=== PATIENT | male | born 1960 | race Caucasian/White ===

== ENCOUNTER 2017-03-24 12:47 | Emergency (ER) | payer BC, OTHER ==
[2017-03-24 13:20] LABS: BASOPHILS % (AUTO) 0.3 % (0.0-5.0); EOSINOPHILS % (AUTO) 0.5 % (0.0-8.0); HEMATOCRIT 49.4 % (42-54); LYMPHOCYTES % (AUTO) 5.9 % (21.0-51.0); MEAN CORPUSCULAR HEMOGLOBIN 30.3 pg (27.0-33.0); MEAN CORPUSCULAR HGB CONC 34.3 g/dL (32.0-36.0); MEAN CORPUSCULAR VOLUME 88.2 fL (79-99); MONOCYTES % (AUTO) 4.9 % (3.0-13.0); NEUTROPHILS % (AUTO) 88.4 % (40.0-77.0); PLATELET COUNT (AUTO) 109 K/uL (130-400); RED CELL DISTRIBUTION WIDTH 14.1 % (11.0-15.5); WHITE BLOOD COUNT (AUTO) 8.9 K/uL (4.8-10.8)
[2017-03-24] MEDS ORDERED: SODIUM CHLORIDE 0.9% 1000ML 1,000 ML IV ONE (13:26)
[2017-03-24] MEDS ORDERED: ONDANSETRON HCL 4 MG/2 ML VIAL ONE (13:26)
[2017-03-24 13:32] LABS: CREATININE 0.8 mg/dL (0.5-1.5)
[2017-03-24 13:48] LABS: ALBUMIN 3.6 g/dL (3.5-5.0); BILIRUBIN,TOTAL 1.1 mg/dL (0.2-1.0); CREATINE KINASE MB 0.5 ng/mL (0.5-3.6); TOTAL PROTEIN, SERUM 7.4 g/dL (6.0-8.3)
[2017-03-24 14:03] LABS: INR 1.09 (0.85-1.15); PARTIAL THROMBOPLASTIN TIME 25.8 SEC (26.3-35.5); PROTHROMBIN TIME 11.4 SEC (9.6-11.6)
[2017-03-24 15:18] LABS: APPEARANCE,URINE Turbid (CLEAR); BILIRUBIN,URINE Negative (NEGATIVE); COLOR,URINE Yellow (YELLOW); GLUCOSE, URINE (UA) >=1000 mg/dL (NEGATIVE); KETONES,URINE 40 mg/dL (NEGATIVE); LEUKOCYTE ESTERASE ,URINE Negative (NEGATIVE); NITRATE,URINE Negative (NEGATIVE); OCCULT BLOOD,URINE Negative (NEGATIVE); PROTEIN,URINE Negative (NEGATIVE); UROBILINOGEN,URINE 0.2 mg/dL (0.2-1.0)
[2017-03-24 15:45] LABS: BACTERIA,URINE None Seen /HPF (None Seen); RBC,URINE None Seen /HPF (0-1); TRANSITIONAL EPI CELLS,URINE Few /LPF (None Seen); WBC,URINE None Seen /HPF (0-1)
== END 2017-03-24 16:45 | disposition home or self-care (01) ==
LOC: EDH 12:47
DX: A09 Infectious gastroenteritis and colitis, unspecified (principal); E86.0 Dehydration; E11.65 Type 2 diabetes mellitus with hyperglycemia; Z72.0 Tobacco use
CPT/HCPCS: 36415; 80053; 81001; 82150; 82270; 82550; 82553; 82948 ×2; 83690; 84484; 85025; 85610; 85730; 87046; 87177; 87205; 87804 ×2; 93005; 96360; 96361; 96374; 99285; J2405; J7030

== ENCOUNTER 2018-11-01 11:31 | Emergency (ER) | payer SELFPAY ==
[2018-11-01] MEDS ORDERED: SODIUM CHLORIDE 0.9% 1000ML 1,000 ML IV ONE (11:47)
[2018-11-01 12:13] LABS: BASOPHILS % (AUTO) 0.5 % (0.0-5.0); EOSINOPHILS % (AUTO) 0.5 % (0.0-8.0); HEMATOCRIT 40.7 % (42-54); LYMPHOCYTES % (AUTO) 9.9 % (21.0-51.0); MEAN CORPUSCULAR HEMOGLOBIN 31.2 pg (27.0-33.0); MEAN CORPUSCULAR HGB CONC 35.3 g/dL (32.0-36.0); MEAN CORPUSCULAR VOLUME 88.4 fL (79-99); MONOCYTES % (AUTO) 9.5 % (3.0-13.0); NEUTROPHILS % (AUTO) 79.6 % (40.0-77.0); PLATELET COUNT (AUTO) 98 K/uL (130-400); RED BLOOD CELL COUNT(AUTO) 4.61 MIL/uL (4.50-6.20); RED CELL DISTRIBUTION WIDTH 12.9 % (11.0-15.5)
[2018-11-01] MEDS ORDERED: CLINDAMYCIN 600 MG/D5% WATER 50 ML IV ONE (12:14)
[2018-11-01] MEDS ORDERED: ONDANSETRON HCL 4 MG/2 ML VIAL ONE (12:14)
[2018-11-01] MEDS ORDERED: MORPHINE SULFATE 4 MG/1ML SYG ONE (12:15)
[2018-11-01 12:20] LABS: CREATININE 0.8 mg/dL (0.5-1.5); POTASSIUM 3.9 mmol/L (3.5-5.1)
[2018-11-01 12:25] LABS: ALBUMIN 2.9 g/dL (3.5-5.0); TOTAL PROTEIN, SERUM 6.8 g/dL (6.0-8.3)
[2018-11-01 12:35] LABS: INR 1.01 (0.85-1.15); PARTIAL THROMBOPLASTIN TIME 21.2 SEC (26.3-35.5); PROTHROMBIN TIME 10.6 SEC (9.6-11.6)
[2018-11-01] MEDS ORDERED: IOHEXOL-350 75 ML VIAL IV ONE (13:02)
[2018-11-01 13:06] LABS: PLATELET MORPHOLOGY COMMENT DECREASED
== END 2018-11-01 14:55 | disposition home or self-care (01) ==
LOC: EDH 11:31
DX: L03.315 Cellulitis of perineum (principal); R03.0 Elevated blood-pressure reading, without diagnosis of hypertension; E11.9 Type 2 diabetes mellitus without complications; Z91.14 Patient's other noncompliance with medication regimen; Z72.0 Tobacco use
CPT/HCPCS: 36415; 72193; 80053; 83605; 85025; 85610; 85730; 96365; 96375; 99285; J2270; J2405; J3490; J7030; Q9967

== ENCOUNTER 2018-11-11 16:27 | Inpatient (IN) | payer SELFPAY ==
[~2018-11-11] VITALS: Ht 172.7 cm; Wt 117.9 kg
[2018-11-11] MEDS ORDERED: SODIUM CHLORIDE 0.9% 1000ML 1,000 ML IV ONE ×2 (16:46→18:27)
[2018-11-11 16:53] LABS: BASOPHILS % (AUTO) 0.5 % (0.0-5.0); EOSINOPHILS % (AUTO) 0.7 % (0.0-8.0); HEMATOCRIT 47.2 % (42-54); LYMPHOCYTES % (AUTO) 16.4 % (21.0-51.0); MEAN CORPUSCULAR HEMOGLOBIN 30.1 pg (27.0-33.0); MEAN CORPUSCULAR HGB CONC 33.6 g/dL (32.0-36.0); MEAN CORPUSCULAR VOLUME 89.7 fL (79-99); MONOCYTES % (AUTO) 4.7 % (3.0-13.0); NEUTROPHILS % (AUTO) 77.7 % (40.0-77.0); NUCLEATED RED BLOOD CELLS 0.1 % (0.0-0.19); PLATELET COUNT (AUTO) 215 K/uL (130-400); RED BLOOD CELL COUNT(AUTO) 5.26 MIL/uL (4.50-6.20); RED CELL DISTRIBUTION WIDTH 13.3 % (11.0-15.5); WHITE BLOOD COUNT (AUTO) 12.6 K/uL (4.8-10.8)
[2018-11-11 17:18] LABS: CREATININE 0.9 mg/dL (0.5-1.5); POTASSIUM 4.4 mmol/L (3.5-5.1)
[2018-11-11 17:23] LABS: ALBUMIN 3.2 g/dL (3.5-5.0); BILIRUBIN,TOTAL 0.5 mg/dL (0.2-1.0); TOTAL PROTEIN, SERUM 8.1 g/dL (6.0-8.3)
[2018-11-11] MEDS ORDERED: IOHEXOL-350 75 ML VIAL IV ONE (17:48)
[2018-11-11] MEDS ORDERED: MORPHINE SULFATE 4 MG/1ML SYG ONE (18:18)
[2018-11-11] MEDS ORDERED: VANCOMYCIN 1GM+NS 250ML 250 ML IV ONE (18:18)
[2018-11-11] MEDS ORDERED: ONDANSETRON HCL 4 MG/2 ML VIAL ONE (18:18)
[2018-11-11] MEDS ORDERED: ONDANSETRON HCL 4 MG/2 ML VIAL IV PRN (19:30)
[2018-11-11] MEDS ORDERED: DEXTROSE 50%-WATER 50 ML DISP.SYRIN IV PRN (19:30)
[2018-11-11] MEDS ORDERED: GLUCAGON 1MG KIT 1 MG ML IM PRN (19:30)
[2018-11-11] MEDS ORDERED: HYDRALAZINE HCL 20 MG/ML VIAL IV PRN (19:30)
[2018-11-11] MEDS: FAMOTIDINE/PF 20 MG/2 ML VIAL IV SCH (21:19)
[2018-11-11] MEDS: MORPHINE SULFATE 4 MG/1ML SYG IV PRN (21:19)
[2018-11-11] MEDS: SODIUM CHLORIDE 0.9% 1000ML 1,000 ML IV SCH (21:31)
[2018-11-11] MEDS: INSULIN R PO SS1 SQ SCH (21:33)
[2018-11-12] VITALS: BP 110/61
[2018-11-12] MEDS: MORPHINE SULFATE 4 MG/1ML SYG IV PRN ×4 (01:47→23:27)
[2018-11-12 05:23] LABS: BASOPHILS % (AUTO) 0.5 % (0.0-5.0); EOSINOPHILS % (AUTO) 1.4 % (0.0-8.0); HEMATOCRIT 39.7 % (42-54); LYMPHOCYTES % (AUTO) 25.5 % (21.0-51.0); MEAN CORPUSCULAR HEMOGLOBIN 30.5 pg (27.0-33.0); MEAN CORPUSCULAR HGB CONC 34.2 g/dL (32.0-36.0); MONOCYTES % (AUTO) 6.6 % (3.0-13.0); PLATELET COUNT (AUTO) 161 K/uL (130-400); RED BLOOD CELL COUNT(AUTO) 4.47 MIL/uL (4.50-6.20); RED CELL DISTRIBUTION WIDTH 13.4 % (11.0-15.5); WHITE BLOOD COUNT (AUTO) 8.1 K/uL (4.8-10.8)
[2018-11-12 05:35] LABS: CREATININE 0.7 mg/dL (0.5-1.5); POTASSIUM 3.7 mmol/L (3.5-5.1)
[2018-11-12 06:00] VITALS: BP 138/93
[2018-11-12] MEDS: INSULIN R PO SS1 SQ SCH ×4 (06:16→21:10)
[2018-11-12] MEDS: SODIUM CHLORIDE 0.9% 1000ML 1,000 ML IV SCH ×2 (06:17→15:30)
[2018-11-12 08:00] VITALS: BP 112/73
[2018-11-12] MEDS: FAMOTIDINE/PF 20 MG/2 ML VIAL IV SCH ×2 (08:36→21:06)
[2018-11-12 11:00] VITALS: BP 128/68
--- NOTE | 2018-11-12 11:17 | NUR ---
DCP CM met with pt discussed dc plans. Pt is independent prior to admission, lives at home with partner Alo Nice. Denies any equipments/services. Pt feels safe to go back home, still works and drives, partner able to assist with transportation as necessary. DC plan to home once stable. CM to cont to follow up. Addendum: 11/12/18 at 1119 by GENEVA AYALA LVN CM Amended: Links added.
[2018-11-12] MEDS ORDERED: VANCOMYCIN PROTOCOL PER PHARMACY IV PRN (14:00)
[2018-11-12] MEDS ORDERED: VANCOMYCIN 1GM+NS 250ML 250 ML IV SCH (14:00)
[2018-11-12] MEDS ORDERED: VANCOMYCIN 2 GM in SODIUM CHLORIDE 0.9% 500ML 500 ML IV ONE (14:15)
[2018-11-12] MEDS ORDERED: COMPOUND IV REFRIGERATED 1 EACH IVSOLN MISC PRN (14:15)
[2018-11-12] MEDS: ACETAMINOPHEN 325 MG TAB PO PRN (15:02)
--- NOTE | 2018-11-12 15:39 | NUR ---
CM Note: POC CM met with pt currently self pay, HAC assisting, given community resources packet. Pt states his partner will help with wound dressing changes. Dc plan to home. Primary nurse aware to teach pt and partner dressing changes. Pt to be given temporary supplies on dc. Primary nurse and charge nurse aware. CM to cont to follow up.
[2018-11-12 16:00] VITALS: BP 124/85
--- NOTE | 2018-11-12 17:34 | NUR ---
[facility] consult Patient assessed as ordered. Patient states he had abscess that spontaneously ruptured and is now open. Surgical consult is pending. [facility] recommendations submitted. Addendum: 11/12/18 at 1736 by MIKE OSUNA RN/ Amended: Links added.
[2018-11-12] MEDS: INSULIN LISPRO 100 UNIT/ML 3ML SQ SCH (17:57)
[2018-11-12] MEDS: ZOSYN 3.375GM+NS 50ML 50 ML IV SCH (18:05)
[2018-11-12] MEDS: MORPHINE SULFATE 2 MG/ML 1ML SYG IV PRN (18:23)
[2018-11-12 20:00] VITALS: BP 120/69
[2018-11-12] MEDS ORDERED: INSULIN GLARGINE 100 UNITS/ML 10 ML VIAL SQ SCH (21:00)
[2018-11-12] MEDS: VANCOMYCIN 1GM+NS 250ML 250 ML IV SCH (21:06)
[2018-11-12] MEDS: ONDANSETRON HCL 4 MG/2 ML VIAL IVP PRN (23:27)
[2018-11-13] VITALS (10 sets, daily range): BP systolic 108–138; BP diastolic 57–84
--- NOTE | 2018-11-13 00:13 | NUR ---
REFUSING WOUND CARE AT THIS TIME WANTING TO HAVE WOUND CARE DONE IN AM WHEN FRIEND IS PRESENT TO OBSERVE HOW TO DO THE WOUND CARE. INFORMED PT THAT WOUND CARE CAN BE DONE NOW AND LATER WHEN HIS FRIEND ARRIVES IN THE AM. PT STILL DOES NOT WANT IT DONE AT THIS TIME. WILL ENDORSE TO AM NURSE.
[2018-11-13] MEDS: ZOSYN 3.375GM+NS 50ML 50 ML IV SCH ×3 (03:09→17:32)
[2018-11-13] MEDS: ACETAMINOPHEN 325 MG TAB PO PRN ×2 (03:18→11:00)
[2018-11-13] MEDS: SODIUM CHLORIDE 0.9% 1000ML 1,000 ML IV SCH ×3 (04:51→21:30)
[2018-11-13] MEDS: MORPHINE SULFATE 4 MG/1ML SYG IV PRN ×2 (04:52→17:33)
[2018-11-13 05:13] LABS: BASOPHILS % (AUTO) 0.6 % (0.0-5.0); EOSINOPHILS % (AUTO) 0.9 % (0.0-8.0); HEMATOCRIT 40.5 % (42-54); LYMPHOCYTES % (AUTO) 17.6 % (21.0-51.0); MEAN CORPUSCULAR HEMOGLOBIN 30.6 pg (27.0-33.0); MEAN CORPUSCULAR HGB CONC 34.2 g/dL (32.0-36.0); MEAN CORPUSCULAR VOLUME 89.6 fL (79-99); MONOCYTES % (AUTO) 4.8 % (3.0-13.0); NEUTROPHILS % (AUTO) 76.1 % (40.0-77.0); NUCLEATED RED BLOOD CELLS 0.1 % (0.0-0.19); PLATELET COUNT (AUTO) 146 K/uL (130-400); RED BLOOD CELL COUNT(AUTO) 4.52 MIL/uL (4.50-6.20); RED CELL DISTRIBUTION WIDTH 13.4 % (11.0-15.5); WHITE BLOOD COUNT (AUTO) 9.1 K/uL (4.8-10.8)
[2018-11-13 05:28] LABS: HEMOGLOBIN A1C 11.3 % (4.0-6.0)
[2018-11-13 05:35] LABS: CRP QUANTITATIVE 5.6 mg/L (0.00-9.0)
[2018-11-13 06:19] LABS: ERYTHROCYTE SEDIMENTATION RATE 6 MM/HR (0-20)
[2018-11-13] MEDS: VANCOMYCIN 1GM+NS 250ML 250 ML IV SCH ×2 (06:40→14:44)
[2018-11-13] MEDS: INSULIN R PO SS1 SQ SCH ×2 (06:44→13:44)
[2018-11-13] MEDS: INSULIN LISPRO 100 UNIT/ML 3ML SQ SCH ×2 (06:46→13:43)
[2018-11-13] MEDS: FAMOTIDINE/PF 20 MG/2 ML VIAL IV SCH ×2 (10:58→21:01)
[2018-11-13] MEDS: ONDANSETRON HCL 4 MG/2 ML VIAL IVP PRN ×2 (10:59→17:45)
[2018-11-13] MEDS: MORPHINE SULFATE 2 MG/ML 1ML SYG IV PRN ×2 (11:01→11:12)
[2018-11-13] MEDS ORDERED: DEXTROSE 50%-WATER 50 ML DISP.SYRIN IV PRN (15:30)
[2018-11-13] MEDS ORDERED: GLUCAGON 1MG KIT 1 MG ML IM PRN (15:30)
[2018-11-13] MEDS ORDERED: LIDOCAINE HCL 5% OINT 36GM TUBE TP PRN (15:30)
[2018-11-13] MEDS: INSULIN HUMULIN R 100 UNIT/ML 3ML SQ SCH ×2 (17:52→21:05)
[2018-11-13] MEDS ORDERED: INSULIN GLARGINE 100 UNITS/ML 10 ML VIAL SQ SCH (21:00)
[2018-11-13] MEDS: SODIUM HYPOCHLORITE 0.25% [HALF STRENGTH] 473 ML TOPICAL SOLN TP SCH (21:00)
[2018-11-13] MEDS: VANCOMYCIN 1.75 GM in SODIUM CHLORIDE 0.9% 250 ML IV SCH (21:02)
[2018-11-13] MEDS: INSULIN HUMULIN 70/30 100 UNIT/ML 3ML SQ SCH (21:07)
[2018-11-13] MEDS: HYDROMORPHONE HCL 0.5 MG/0.5 ML ML IVP PRN (21:51)
[2018-11-14] VITALS: BP 122/63
[2018-11-14] MEDS: ZOSYN 3.375GM+NS 50ML 50 ML IV SCH ×3 (02:15→17:44)
[2018-11-14] MEDS: HYDROMORPHONE HCL 0.5 MG/0.5 ML ML IVP PRN ×4 (02:16→22:43)
[2018-11-14 04:00] VITALS: BP 144/85
[2018-11-14] MEDS: MORPHINE SULFATE 4 MG/1ML SYG IV PRN (05:47)
[2018-11-14] MEDS: ONDANSETRON HCL 4 MG/2 ML VIAL IVP PRN (05:47)
[2018-11-14] MEDS: INSULIN HUMULIN R 100 UNIT/ML 3ML SQ SCH ×4 (05:49→20:52)
[2018-11-14 08:00] VITALS: BP 144/85
--- NOTE | 2018-11-14 08:17 | NUR ---
WOUND CARE PROVIDED DANKINS SOLUTION APPLIED TO WOUND SITE ON GROIN WITH LIDOCAINE GEL. DAMP TO DRY DRESSING PACKED IN WOUND. DRY GAUZE AND ABD PAD APPLIED OVER WOUND FOR EXTRA COVERAGE, HELD IN PLACE WITH PT'S BOXERS. MEDICATION PRIOR TO WOUND CARE WAS GIVEN- REFER TO MAR. PT TOLERATED CARE WELL. NO S/S OF DISTRESS.
[2018-11-14] MEDS ORDERED: INSULIN HUMULIN 70/30 100 UNIT/ML 3ML SQ SCH (09:00)
[2018-11-14] MEDS: FAMOTIDINE/PF 20 MG/2 ML VIAL IV SCH ×2 (10:29→20:49)
[2018-11-14] MEDS: SODIUM CHLORIDE 0.9% 1000ML 1,000 ML IV SCH (10:39)
[2018-11-14] MEDS: VANCOMYCIN 1.75 GM in SODIUM CHLORIDE 0.9% 250 ML IV SCH ×2 (10:42→20:49)
[2018-11-14] MEDS: SODIUM HYPOCHLORITE 0.25% [HALF STRENGTH] 473 ML TOPICAL SOLN TP SCH (10:42)
[2018-11-14] MEDS: ACETAMINOPHEN 325 MG TAB PO PRN (11:15)
[2018-11-14 12:00] VITALS: BP 139/87
[2018-11-14] MEDS ORDERED: GLIPIZIDE 5 MG TABLET PO SCH (14:45)
[2018-11-14 16:00] VITALS: BP 143/89
[2018-11-14] MEDS: METFORMIN HCL 500 MG TABLET PO SCH (16:53)
[2018-11-14 20:00] VITALS: BP 135/85
[2018-11-14] MEDS: INSULIN HUMULIN 70/30 100 UNIT/ML 3ML SQ SCH (20:51)
[2018-11-15] VITALS: BP 119/79
[2018-11-15] MEDS: ZOSYN 3.375GM+NS 50ML 50 ML IV SCH ×2 (01:45→09:32)
[2018-11-15 04:00] VITALS: BP 148/61
[2018-11-15 04:32] LABS: BASOPHILS % (AUTO) 0.6 % (0.0-5.0); EOSINOPHILS % (AUTO) 1.7 % (0.0-8.0); HEMATOCRIT 44.1 % (42-54); LYMPHOCYTES % (AUTO) 24.8 % (21.0-51.0); MEAN CORPUSCULAR HEMOGLOBIN 30.6 pg (27.0-33.0); MEAN CORPUSCULAR HGB CONC 33.9 g/dL (32.0-36.0); MEAN CORPUSCULAR VOLUME 90.2 fL (79-99); MONOCYTES % (AUTO) 6.5 % (3.0-13.0); NEUTROPHILS % (AUTO) 66.4 % (40.0-77.0); NUCLEATED RED BLOOD CELLS 0.1 % (0.0-0.19); PLATELET COUNT (AUTO) 163 K/uL (130-400); RED BLOOD CELL COUNT(AUTO) 4.88 MIL/uL (4.50-6.20); RED CELL DISTRIBUTION WIDTH 13.3 % (11.0-15.5); WHITE BLOOD COUNT (AUTO) 8.5 K/uL (4.8-10.8)
[2018-11-15 04:52] LABS: BILIRUBIN,TOTAL 0.6 mg/dL (0.2-1.0); CREATININE 0.8 mg/dL (0.5-1.5); POTASSIUM 3.6 mmol/L (3.5-5.1); TOTAL PROTEIN, SERUM 7.1 g/dL (6.0-8.3)
[2018-11-15] MEDS: HYDROMORPHONE HCL 0.5 MG/0.5 ML ML IVP PRN ×3 (07:24→16:53)
[2018-11-15] MEDS: INSULIN HUMULIN R 100 UNIT/ML 3ML SQ SCH ×3 (07:30→16:30)
[2018-11-15 08:00] VITALS: BP 140/68
[2018-11-15] MEDS: METFORMIN HCL 500 MG TABLET PO SCH (08:57)
[2018-11-15] MEDS ORDERED: INSULIN HUMULIN 70/30 100 UNIT/ML 3ML SQ SCH (09:00)
[2018-11-15] MEDS: FAMOTIDINE/PF 20 MG/2 ML VIAL IV SCH (09:32)
[2018-11-15] MEDS: MORPHINE SULFATE 4 MG/1ML SYG IV PRN (09:32)
[2018-11-15] MEDS: SODIUM HYPOCHLORITE 0.25% [HALF STRENGTH] 473 ML TOPICAL SOLN TP SCH (09:33)
[2018-11-15] MEDS: VANCOMYCIN 1.75 GM in SODIUM CHLORIDE 0.9% 250 ML IV SCH (09:44)
[2018-11-15 12:00] VITALS: BP 140/73
--- NOTE | 2018-11-15 13:04 | NUR ---
WOUND CARE WOUND CARE TEACHING PROVIDED TO PATIENT'S FRIEND, CARLOS. WOUND CARE DONE USING STERILE TECHNIQUE. LIDOCAINE OITMENT APPLIED TO SURROUNDING AREA PAIN PRE MEDICATION. DANKINS SOLUTION APPLIED TO WOUND. DAMP TO DRY DRESSING APPLIED. DRY GAUZE AND ABD PAD APPLIED. PATIENT TOLERATED WELL. PATIENT TOLERATED WELL. CARLOS VERBALIZED UNDERSTANDING OF ALL WOUND CARE EDUCATION GIVEN VIA TEACH BACK. NO CONCERNS VOICED. CARLOS IS AN RN AT [facility].
[2018-11-15] MEDS: SODIUM CHLORIDE 0.9% 1000ML 1,000 ML IV SCH (13:30)
[2018-11-15] MEDS ORDERED: GLIP5POW MC (14:50)
[2018-11-15] MEDS ORDERED: HUM10VIA SQ ×2 (14:50)
[2018-11-15] MEDS ORDERED: METF-444 PO (14:50)
[2018-11-15] MEDS ORDERED: IBUP-2077 PO (15:38)
[2018-11-15] MEDS ORDERED: ACET1TAB12 PO (15:38)
--- NOTE | 2018-11-15 15:58 | NUR ---
RD NOTIFICATION PRIMARY DIAGNOSIS: SEPSIS DUE TO CELLULITIS AND PERINEAL ABSCESS. HX: DM, NON-COMPLIANT DM. BMI 39.5; CLASSIFIED MORBID OBESE. CURRENT DIET: 60GM CCD. PO 100% WITH GOOD APPETITE PER PT. MEDS: GLUCOPHAGE, DILAUDID, PEPCID, PIPERCILLIN, HUMULIN, GLUCOTROL, ZOFRAN. LABS: LDL 116, HDL 134, A1C 11.3, EAG 278, ALB 3.2. SKIN: NON-PITTING EDEMA, ABSCESS IN SCROTUM REGION. RD WAS CONSULTED FOR DM NUTRITION THERAPY EDUCATION. RD RECOMMENDS TO CONTINUE CURRENT DIET. ADD HEART HEALTHY TO DIET ORDER. RD RECOMMENDS 500MG VITMAIN C BID AND 220MG ZINC FOR 14 DAYS TO AID IN WOUND HEALING. RD PROVIDED DIABETES AND HEART HEALTHY NUTRITION AND DIET EDUCATION. HANDOUTS WERE REVIEWED AND GIVEN TO PT TO TAKE HOME. PT WAS READY TO LEARN AND STATED HE WAS READY TO MAKE LIFESTYLE CHANGES. PT ASKED QUESTIONS, RD ANSWERED. PT VERBALIZED UNDERSTANDING AND WAS GLAD I WENT BY TO PROVIDE HIM THIS INFORMATION. RD WILL CONTINUE TO MONITOR AND WILL FOLLOW UP NEEDED. PLEASE NOTIFY RD IF ANY OTHER NUTRITIONAL CONCERNS ARISE. THANK YOU. Addendum: 11/15/18 at [address] Amended: Links added.
--- NOTE | 2018-11-15 15:59 | NUR ---
DIET EDUCATION RD PROVIDED DIABETES AND HEART HEALTHY NUTRITION AND DIET EDUCATION. HANDOUTS WERE REVIEWED AND GIVEN TO PT TO TAKE HOME. PT WAS READY TO LEARN AND STATED HE WAS READY TO MAKE LIFESTYLE CHANGES. PT ASKED QUESTIONS, RD ANSWERED. PT VERBALIZED UNDERSTANDING AND WAS GLAD I WENT BY TO PROVIDE HIM THIS INFORMATION. RD WILL CONTINUE TO MONITOR AND WILL FOLLOW UP NEEDED. PLEASE NOTIFY RD IF ANY OTHER NUTRITIONAL CONCERNS ARISE. THANK YOU. Addendum: 11/15/18 at [address] Amended: Links added.
--- NOTE | 2018-11-15 18:30 | NUR ---
PATIENT PROVIDED WITH EXTENSIVE TEACHING ON INSULIN ADMINISTRATION, CLEAN TECHNIQUE, S/S OF HYPOGLYCEMIA AND HYPERGLYCEMIA. PATIENT VERBALIZED UNDERSTANDING OF ALL EDUCATION PROVIDED VIA TEACH BACK. ALL QUESTIONS ANSWERED ACCORDINGLY. PATIENT PRACTICED HOW TO GIVE INSULIN AND HOW TO MEASURE IT.
== END 2018-11-15 20:50 | disposition home or self-care (01) | DRG 872 ==
LOC: EDH 16:27 → EDHIP 16:28 → 3AH 20:06
PROVIDERS: ADMIT Internal Medicine; ATTEND Internal Medicine
DX: A41.9 Sepsis, unspecified organism (principal); L03.315 Cellulitis of perineum; E87.1 Hypo-osmolality and hyponatremia; L02.215 Cutaneous abscess of perineum; N49.2 Inflammatory disorders of scrotum; E11.9 Type 2 diabetes mellitus without complications; E66.9 Obesity, unspecified; Z68.39 Body mass index [BMI] 39.0-39.9, adult; Z91.19 Patient's noncompliance with other medical treatment and regimen; Z79.84 Long term (current) use of oral hypoglycemic drugs
CPT/HCPCS: 36415; 72193; 80048; 80053; 80061; 80202; 82948; 83036; 83605; 85025; 85651; 86140; 87070; 87076; 87077; 87186; G0378; J1170; J1815; J2270; J2405; J2543; J3370; J3490; J7030; J7040; Q9967

== ENCOUNTER 2019-01-17 12:34 | Inpatient (IN) | payer SELFPAY ==
[~2019-01-17] VITALS: Ht 172.7 cm; Wt 118.0 kg
[~2019-01-17 12:34] MED LIST: ACET1TAB12 PO; GLIP5POW MC; HUM10VIA SQ; IBUP-2077 PO; METF-444 PO
[2019-01-17] MEDS ORDERED: ACETAMINOPHEN EXTRA STRENGTH 500 MG TABLET ONE (12:49)
[2019-01-17] MEDS ORDERED: APIXABAN 2.5 MG TABLET PO ONE (13:37)
[2019-01-17 13:42] LABS: BASOPHILS % (AUTO) 0.5 % (0.0-5.0); EOSINOPHILS % (AUTO) 1.2 % (0.0-8.0); HEMATOCRIT 41.1 % (42-54); LYMPHOCYTES % (AUTO) 18.6 % (21.0-51.0); MEAN CORPUSCULAR HEMOGLOBIN 30.3 pg (27.0-33.0); MEAN CORPUSCULAR HGB CONC 34.5 g/dL (32.0-36.0); MEAN CORPUSCULAR VOLUME 87.6 fL (79-99); MONOCYTES % (AUTO) 6.3 % (3.0-13.0); NEUTROPHILS % (AUTO) 73.4 % (40.0-77.0); NUCLEATED RED BLOOD CELLS 0.1 % (0.0-0.19); PLATELET COUNT (AUTO) 126 K/uL (130-400); RED BLOOD CELL COUNT(AUTO) 4.69 MIL/uL (4.50-6.20); RED CELL DISTRIBUTION WIDTH 14.4 % (11.0-15.5); WHITE BLOOD COUNT (AUTO) 8.6 K/uL (4.8-10.8)
[2019-01-17 13:48] LABS: CREATININE 0.7 mg/dL (0.5-1.5); POTASSIUM 4.3 mmol/L (3.5-5.1)
[2019-01-17 13:51] LABS: PARTIAL THROMBOPLASTIN TIME 24.9 SEC (26.3-35.5); PROTHROMBIN TIME 10.5 SEC (9.6-11.6)
[2019-01-17] MEDS ORDERED: ONDANSETRON HCL 4 MG/2 ML VIAL IV PRN (15:00)
[2019-01-17] MEDS ORDERED: ACETAMINOPHEN 325 MG TAB PO PRN ×2 (15:00)
[2019-01-17] MEDS ORDERED: ACETAMINOPHEN-CODEINE 300/30MG TAB PO PRN (15:00)
[2019-01-17] MEDS ORDERED: LACTULOSE 20 GM/30 ML UDCUP PO PRN (15:00)
[2019-01-17 16:45] VITALS: BP 139/91
--- NOTE | 2019-01-17 17:10 | NUR ---
STRICT BEDREST EXPLAINED TO PATIENT THE RISK FACTORS RELATED TO DVT ON LOWER EXTREMITY AND MADE PATIENT AWARE THAT HE NEED NEEDS TO BE STRICTLY BEDREST. PATIENT INSISTING THAT HE WILL NOT USE URINAL OR BEDPAN. PATIENT VERBALIZED UNDERSTANDING RISK FACTORS FOR DVT.
[2019-01-17] MEDS: INSULIN HUMULIN R 100 UNIT/ML 3ML SQ SCH ×2 (17:37→21:27)
[2019-01-17] MEDS ORDERED: WARFARIN SODIUM 7.5 MG TAB PO SCH (20:00)
[2019-01-17 20:27] VITALS: BP 135/83
[2019-01-17] MEDS: PHARMACY COMMUNICATION MISC SCH (20:30)
[2019-01-17] MEDS ORDERED: ENOXAPARIN SODIUM 120 MG/0.8ML SQ SCH (21:00)
[2019-01-17] MEDS: FAMOTIDINE 20MG TAB 20 MG TAB PO SCH (21:15)
[2019-01-18 00:28] VITALS: BP 140/88
[2019-01-18] MEDS: PHARMACY COMMUNICATION MISC SCH ×2 (00:30→04:45)
[2019-01-18 04:28] VITALS: BP 111/78
[2019-01-18 05:37] LABS: BASOPHILS % (AUTO) 0.8 % (0.0-5.0); EOSINOPHILS % (AUTO) 1.8 % (0.0-8.0); HEMATOCRIT 40.9 % (42-54); LYMPHOCYTES % (AUTO) 24.4 % (21.0-51.0); MEAN CORPUSCULAR HEMOGLOBIN 29.4 pg (27.0-33.0); MEAN CORPUSCULAR HGB CONC 34.1 g/dL (32.0-36.0); MEAN CORPUSCULAR VOLUME 86.3 fL (79-99); MONOCYTES % (AUTO) 7.6 % (3.0-13.0); NEUTROPHILS % (AUTO) 65.4 % (40.0-77.0); NUCLEATED RED BLOOD CELLS 0.1 % (0.0-0.19); PLATELET COUNT (AUTO) 126 K/uL (130-400); RED BLOOD CELL COUNT(AUTO) 4.73 MIL/uL (4.50-6.20); RED CELL DISTRIBUTION WIDTH 15.1 % (11.0-15.5); WHITE BLOOD COUNT (AUTO) 8.8 K/uL (4.8-10.8)
[2019-01-18 05:48] LABS: CREATININE 0.6 mg/dL (0.5-1.5); POTASSIUM 3.7 mmol/L (3.5-5.1)
[2019-01-18 05:53] LABS: INR 1.07 (0.85-1.15); PARTIAL THROMBOPLASTIN TIME 27.2 SEC (26.3-35.5); PROTHROMBIN TIME 11.2 SEC (9.6-11.6)
[2019-01-18] MEDS: ACETAMINOPHEN-CODEINE 300/30MG TAB PO PRN ×4 (06:04→21:12)
[2019-01-18] MEDS: INSULIN HUMULIN R 100 UNIT/ML 3ML SQ SCH ×4 (06:30→21:49)
[2019-01-18 08:00] VITALS: BP 116/80
[2019-01-18] MEDS ORDERED: ACETAMINOPHEN-CODEINE 300/30MG TAB PO PRN (09:15)
[2019-01-18] MEDS: FAMOTIDINE 20MG TAB 20 MG TAB PO SCH ×2 (10:19→21:13)
[2019-01-18] MEDS: ENOXAPARIN SODIUM 120 MG/0.8ML SQ SCH ×2 (10:37→21:13)
[2019-01-18 12:00] VITALS: BP 124/93
[2019-01-18 16:00] VITALS: BP 128/86
[2019-01-18] MEDS: WARFARIN SODIUM 5 MG TAB PO SCH (16:38)
[2019-01-18 19:00] VITALS: BP 130/83
--- NOTE | 2019-01-18 19:41 | NUR ---
cm note met with patient and states resides athome with life partner, pt independent with adls and ambulation. no dme. 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 no md, provided list of low income clinics in the area, and rx assist programs, pt now states is afraid of coumadin and prefers eliquis, [facility] will discuss with md in the am. dc plan is back to home at [place]. instructed on the importance of adherance to medication ordered to avoid medical complications. pt verbalizes understanding. Addendum: 01/18/19 at 1944 by COLIN GOSS CM Amended: Links added.
[2019-01-19] VITALS: BP 116/80
[2019-01-19] MEDS: ACETAMINOPHEN-CODEINE 300/30MG TAB PO PRN ×4 (03:15→20:57)
[2019-01-19 04:00] VITALS: BP 129/88
[2019-01-19 05:49] LABS: BASOPHILS % (AUTO) 0.6 % (0.0-5.0); EOSINOPHILS % (AUTO) 1.9 % (0.0-8.0); HEMATOCRIT 37.9 % (42-54); LYMPHOCYTES % (AUTO) 25.6 % (21.0-51.0); MEAN CORPUSCULAR VOLUME 85.6 fL (79-99); MONOCYTES % (AUTO) 8.9 % (3.0-13.0); PLATELET COUNT (AUTO) 133 K/uL (130-400); RED BLOOD CELL COUNT(AUTO) 4.43 MIL/uL (4.50-6.20); RED CELL DISTRIBUTION WIDTH 14.5 % (11.0-15.5); WHITE BLOOD COUNT (AUTO) 8.2 K/uL (4.8-10.8)
[2019-01-19 05:53] LABS: INR 1.08 (0.85-1.15); PARTIAL THROMBOPLASTIN TIME 30.7 SEC (26.3-35.5); PROTHROMBIN TIME 11.3 SEC (9.6-11.6)
[2019-01-19 06:00] LABS: CREATININE 0.7 mg/dL (0.5-1.5); POTASSIUM 3.9 mmol/L (3.5-5.1)
[2019-01-19] MEDS: INSULIN HUMULIN R 100 UNIT/ML 3ML SQ SCH ×4 (06:48→20:27)
[2019-01-19 08:00] VITALS: BP 117/76
[2019-01-19] MEDS ORDERED: WARFARIN SODIUM 10 MG TABLET PO SCH (09:00)
[2019-01-19] MEDS: FAMOTIDINE 20MG TAB 20 MG TAB PO SCH ×2 (09:10→20:19)
[2019-01-19] MEDS: ENOXAPARIN SODIUM 120 MG/0.8ML SQ SCH ×2 (09:11→20:20)
[2019-01-19 12:00] VITALS: BP 121/77
--- NOTE | 2019-01-19 15:29 | NUR ---
ORTIZ COUPON/PAPERWORK EXPLAINED THE ELIQUIS PROGRAM TO PT AND PARTNER- NINA GIVEN, PAPERWORK FOR ASISTANCE PROGRAM GIVEN, HAVE RX FOR DR. SHUKLA TO SIGN AND HAVE INFORMED AJ; IF NOT, PT CAN TAKE A BLANK FORM TO THE md OF HIS CHOICE ON DISCHARGE Addendum: 01/19/19 at 1531 by EVELYN SANTIAGO RN CM Amended: Links added.
[2019-01-19] MEDS: WARFARIN SODIUM 5 MG TAB PO SCH (15:38)
[2019-01-19 16:00] VITALS: BP 113/92
[2019-01-19 19:00] VITALS: BP 134/90
--- NOTE | 2019-01-19 20:19 | NUR ---
MEDS SHIFT ASSESSMENT DONE, PLEASE REFER TO CHART. PT VERBALIZES PAINS TO LLE. OFFERED TYLENOL FOR NOW BUT REFUSED. PT VERBALIZES THAT TYLENOL #3 WAS SUPPOSE TO BE Q4H. EXPLAINED THAT MD WILL BE CALLED TO CLARIFY ORDERS. PT GOT UPSET AND ACCUSED PRECIPITATOR SUPERVISOR OF NOT KNOWING ABOUT HIS MEDICATIONS. EXPLAINED THAT PER ORDER IN THE COMPUTER HIS MED IS EVERY 6H BUT WILL CLARIFY WITH MD. TRIED TO CALM PT DOWN BUT IS STILL BEING RUDE TO PRECIPITATOR SUPERVISOR. DUE MEDS ADMINISTERED, TOLERATED WELL. PAGED HOSPITALIST LAUNDRY ATTENDANT VIA ANSWERING SERVICE TO CLARIFY ORDERS, AWAITING CALL BACK. Addendum: 01/20/19 at 0223 by ORTEGA SANCHEZ RN RN Amended: Links added.
--- NOTE | 2019-01-19 20:47 | NUR ---
CALL NO CALL BACK FROM HOSPITALIST, CALLED ANSWERING SERVICE AGAIN TO PAGE. TRIED TO CALL ER AND CUSTOMER ACCOUNT MANAGER SUPERVISOR EVAPORATOR FOR HOSPITALIST, ALINA IS BUSY WITH PATIENTS. ASK LIZANDRO IN ER TO LET CUSTOMER ACCOUNT MANAGER KNOW TO CALL BACK MD PHYSICIAN DERMATOLOGIST.
--- NOTE | 2019-01-19 20:57 | NUR ---
MEDS NO CALL BACK YET FROM MACHINE GUIDE BASE WINDER. MEDICATED PT WITH TYLENOL #3 2 TABS FOR PAINS. WILL REFER MED FREQUENCY TO MACHINE GUIDE BASE WINDER ONCE SHE CALLS BACK.
--- NOTE | 2019-01-19 23:30 | NUR ---
CALL TRAFFIC CONTROL SPECIALIST ALINA, CALLED VIA HER CP NO CALL BACK RECEIVED. REFERRED PT'S TYLENOL # 3 DOSES. NO CHANGES MADE FREQUENCY IS KEPT IS, 1 TAB Q4H AND 2 TABS Q6H PRN FOR PAINS. WILL LET PT KNOW.
[2019-01-20] VITALS (7 sets, daily range): BP systolic 106–145; BP diastolic 60–93
--- NOTE | 2019-01-20 02:00 | NUR ---
ROUNDS PT RESTING WELL, NO DISTRESS NOTED. KEPT UNDISTURBED FOR NOW. CALL LIGHT WITHIN REACH. WILL MONITOR PT.
[2019-01-20] MEDS: ACETAMINOPHEN-CODEINE 300/30MG TAB PO PRN ×3 (03:24→20:21)
[2019-01-20 06:31] LABS: INR 1.22 (0.85-1.15); PARTIAL THROMBOPLASTIN TIME 31.7 SEC (26.3-35.5); PROTHROMBIN TIME 12.7 SEC (9.6-11.6)
[2019-01-20] MEDS: INSULIN HUMULIN R 100 UNIT/ML 3ML SQ SCH ×4 (06:37→21:00)
[2019-01-20] MEDS: FAMOTIDINE 20MG TAB 20 MG TAB PO SCH ×2 (10:43→20:19)
[2019-01-20] MEDS: ENOXAPARIN SODIUM 120 MG/0.8ML SQ SCH (10:44)
[2019-01-20] MEDS ORDERED: IOHEXOL 350 MG/ML 100ML INFUS..BTL IV ONE (11:46)
--- NOTE | 2019-01-20 14:35 | NUR ---
Received call from radiology department that pt is positive for DVT, Dr Jain was informed and he said to continue with same regimen as explained earlier
--- NOTE | 2019-01-20 16:00 | NUR ---
Kailey MAYESP aware of PE positive and of Dr Susy weems
--- NOTE | 2019-01-20 16:21 | NUR ---
RD Notification Pt admitted for LLE DVT. Hx of DM, Scrotal cellulitis. Pt denies need for Coumadin diet education secondary to discontinued medication. Pt denies need for DM education secondary to Hx of DM with previous education. Upon visit, Pt expresses concern for affordability of Insulin medication and seeking assistance/program. Pt tolerating Current 75gm CCD. Pt states he is tired of eating hospital food. Recommend to continue current diet order. Pt LBM 01/19. Pt monitored labs: BG 291, Na 134, Cl 99, Ca 8.4. RD to continue to monitor. Please notify RD as additional nutrition concerns arise. Addendum: 01/20/19 at [address] Amended: Links added.
[2019-01-20] MEDS ORDERED: PHARMACY COMMUNICATION MISC SCH (17:00)
[2019-01-20] MEDS ORDERED: APIXABAN 5 MG TABLET PO ONE (18:10)
[2019-01-21] MEDS: ACETAMINOPHEN-CODEINE 300/30MG TAB PO PRN ×4 (03:38→22:48)
[2019-01-21 03:47] VITALS: BP 122/83
[2019-01-21 08:00] VITALS: BP 129/70
[2019-01-21] MEDS: FAMOTIDINE 20MG TAB 20 MG TAB PO SCH ×2 (09:25→20:52)
[2019-01-21] MEDS: APIXABAN 5 MG TABLET PO SCH ×2 (09:26→20:52)
[2019-01-21] MEDS: INSULIN HUMULIN R 100 UNIT/ML 3ML SQ SCH ×4 (09:27→20:58)
[2019-01-21] MEDS ORDERED: HEPARIN 25000 UNITS/250 ML D5W 250 ML IV SCH (09:45)
[2019-01-21 10:28] LABS: INR 1.35 (0.85-1.15); PARTIAL THROMBOPLASTIN TIME 30.4 SEC (26.3-35.5)
[2019-01-21 11:00] VITALS: BP 127/96
[2019-01-21] MEDS ORDERED: HEPARIN SODIUM 5000UNIT/ML 1ML VIAL ONE (11:45)
--- NOTE | 2019-01-21 15:21 | NUR ---
CALLED TO DR POPE REGARDING CTA RESULTS . SPOKE WITH DAVID ,WILL RELATE MESSAGE AND TELL HIM TO CALL BACK . PENDING CALL BACK
[2019-01-21 16:00] VITALS: BP 135/83
[2019-01-21 20:19] VITALS: BP 119/76
[2019-01-22 00:06] VITALS: BP 132/80
[2019-01-22 03:38] VITALS: BP 146/71
[2019-01-22 05:20] LABS: BASOPHILS % (AUTO) 0.5 % (0.0-5.0); EOSINOPHILS % (AUTO) 1.5 % (0.0-8.0); HEMATOCRIT 37.8 % (42-54); LYMPHOCYTES % (AUTO) 30.2 % (21.0-51.0); MEAN CORPUSCULAR HGB CONC 34.8 g/dL (32.0-36.0); MEAN CORPUSCULAR VOLUME 86.3 fL (79-99); MONOCYTES % (AUTO) 9.2 % (3.0-13.0); NEUTROPHILS % (AUTO) 58.6 % (40.0-77.0); PLATELET COUNT (AUTO) 121 K/uL (130-400); RED BLOOD CELL COUNT(AUTO) 4.37 MIL/uL (4.50-6.20); RED CELL DISTRIBUTION WIDTH 14.8 % (11.0-15.5); WHITE BLOOD COUNT (AUTO) 6.3 K/uL (4.8-10.8)
[2019-01-22] MEDS: INSULIN HUMULIN R 100 UNIT/ML 3ML SQ SCH ×3 (07:16→16:47)
[2019-01-22] MEDS: ACETAMINOPHEN-CODEINE 300/30MG TAB PO PRN ×3 (07:19→20:47)
[2019-01-22 07:45] VITALS: BP 136/82
[2019-01-22] MEDS: FAMOTIDINE 20MG TAB 20 MG TAB PO SCH (09:33)
[2019-01-22] MEDS: APIXABAN 5 MG TABLET PO SCH ×2 (09:36→20:47)
[2019-01-22 12:00] VITALS: BP 126/80
[2019-01-22] MEDS ORDERED: ACET1TAB12 PO (15:57)
[2019-01-22 16:00] VITALS: BP 162/73
--- NOTE | 2019-01-22 18:30 | NUR ---
REJI HUTCHINSON AND DR Diaz ROUND ON PATIENT . SCRIPT WRITTEN FOR PATIENT .. CALLED BACK TO INFORM REJI HUTCHINSON PENDING DISCHARGE ORDERS .. PER CONDENSER TESTER NOTED WILL WORK ON IT .
--- NOTE | 2019-01-22 20:58 | NUR ---
PER AJ ,TASSEL MAKER OK TO GIVE EXTRA DOSE OF ELIQUIS 10MG TO TAKE HOME FOR MORNING DOSE . DISCHARGE INFORMATION ON GIVEN TO PATIENT ALONG WITH PRESCRIPTION .
== END 2019-01-22 20:55 | disposition home or self-care (01) | DRG 299 ==
LOC: EDH 12:34 → OBSVTOIN 12:35 → EDHIP 12:35 → 4DH 16:45
PROVIDERS: ADMIT Internal Medicine; ATTEND Internal Medicine
DX: I82.402 Acute embolism and thrombosis of unspecified deep veins of left lower extremity (principal); I26.99 Other pulmonary embolism without acute cor pulmonale; E66.9 Obesity, unspecified; E11.9 Type 2 diabetes mellitus without complications; F17.200 Nicotine dependence, unspecified, uncomplicated; Z68.39 Body mass index [BMI] 39.0-39.9, adult; Z79.01 Long term (current) use of anticoagulants; Z86.711 Personal history of pulmonary embolism; Z86.718 Personal history of other venous thrombosis and embolism; Z74.01 Bed confinement status
CPT/HCPCS: 36415; 71275; 80048; 82948; 85025; 85610; 85730; 93971; G0378; J1644; J1650; J1815; Q9967

== ENCOUNTER 2020-10-06 12:34 | Inpatient (IN) | payer OTHER ==
[~2020-10-06] VITALS: Ht 172.7 cm; Wt 122.5 kg
[2020-10-06] VITALS (7 sets, daily range): BP systolic 128–145; BP diastolic 68–94
[2020-10-06 12:51] LABS: BASOPHILS % (AUTO) 0.6 % (0.0-5.0); EOSINOPHILS % (AUTO) 0.3 % (0.0-8.0); HEMATOCRIT 39.3 % (42-54); LYMPHOCYTES % (AUTO) 18.1 % (21.0-51.0); MEAN CORPUSCULAR HEMOGLOBIN 28.1 pg (27.0-33.0); MEAN CORPUSCULAR HGB CONC 35.4 g/dL (32.0-36.0); MEAN CORPUSCULAR VOLUME 79.6 fL (79-99); MONOCYTES % (AUTO) 12.4 % (3.0-13.0); PLATELET COUNT (AUTO) 112 K/uL (130-400); RED BLOOD CELL COUNT(AUTO) 4.94 MIL/uL (4.50-6.20); RED CELL DISTRIBUTION WIDTH 14.1 % (11.0-15.5); WHITE BLOOD COUNT (AUTO) 6.7 K/uL (4.8-10.8)
[2020-10-06 12:58] LABS: CREATININE 0.8 mg/dL (0.5-1.5); POTASSIUM 3.5 mmol/L (3.5-5.1)
[2020-10-06 13:03] LABS: ALBUMIN 3.1 g/dL (3.5-5.0); BILIRUBIN,TOTAL 2.1 mg/dL (0.2-1.0); INR 1.22 (0.85-1.15); PROTHROMBIN TIME 13.1 SEC (9.6-11.6); TOTAL PROTEIN, SERUM 6.8 g/dL (6.0-8.3)
[2020-10-06] MEDS ORDERED: PROMETHAZINE HCL 25 MG/ML 1ML AMPULE IM ONE (14:00)
[2020-10-06] MEDS ORDERED: 0.9%NACL 1000ML 1,000 ML IV ONE ×2 (14:00→20:30)
[2020-10-06] MEDS ORDERED: INSULIN HUMULIN R 100 UNIT/ML 3ML IV ONE (14:30)
[2020-10-06] MEDS ORDERED: ACETAMINOPHEN 500 MG TABLET PO ONE (14:30)
[2020-10-06 14:40] LABS: APPEARANCE,URINE CLOUDY (CLEAR); BILIRUBIN,URINE SMALL (NEGATIVE); COLOR,URINE YELLOW (YELLOW); GLUCOSE, URINE (UA) >=1000 mg/dL (NEGATIVE); KETONES,URINE 40 mg/dL (NEGATIVE); LEUKOCYTE ESTERASE ,URINE SMALL (NEGATIVE); NITRATE,URINE NEGATIVE (NEGATIVE); OCCULT BLOOD,URINE MODERATE (NEGATIVE); PH,URINE 5.5 (5.0-8.0); PROTEIN,URINE 30 mg/dL (NEGATIVE)
[2020-10-06 14:47] LABS: BACTERIA,URINE Few /HPF (None Seen); WBC,URINE 26-50 /HPF (0-1); YEAST,URINE BUDDING Few /HPF (None Seen)
[2020-10-06 14:48] LABS: SQUAMOUS EPITHELIAL CELL,UR Few /HPF (0-2)
[2020-10-06] MEDS ORDERED: CEFTRIAXONE 1G VIAL IVP SCH (15:00)
[2020-10-06] MEDS ORDERED: KETOROLAC 30MG VIAL (30MG/ML) IV ONE (16:00)
[2020-10-06] MEDS ORDERED: FENTANYL CITRATE PF 50 MCG/1 ML 2ML VIAL ONE (17:02)
[2020-10-06 17:22] LABS: AMPHET/METH SCREEN,URINE NEGATIVE (NEGATIVE); BARBITURATE SCREEN, URINE NEGATIVE (NEGATIVE); BENZODIAZEPINES SCREEN,URINE NEGATIVE (NEGATIVE); CANNABINOID SCREEN,URINE POSITIVE (NEGATIVE); COCAINE SCREEN,URINE NEGATIVE (NEGATIVE); OPIATE SCREEN,URINE NEGATIVE (NEGATIVE); PHENCYCLIDINE SCREEN,URINE NEGATIVE (NEGATIVE)
[2020-10-06] MEDS ORDERED: FENTANYL CITRATE PF 50 MCG/1 ML 2ML VIAL IVP ONE (17:30)
[2020-10-06 17:58] LABS: ALCOHOL, BLOOD < 3 mg/dL (0-10); CREATINE KINASE, TOTAL 151 U/L (21-232)
[2020-10-06] MEDS ORDERED: KCL 20 MEQ ERTAB PO ONE (18:00)
[2020-10-06 19:01] LABS: HEMOGLOBIN A1C 10.4 % (4.0-6.0)
[2020-10-06] MEDS: 0.9%NACL 50ML IV SCH (19:58)
[2020-10-06] MEDS: ZOSYN 3.375GM +NS 50ML IV SCH (19:58)
[2020-10-06] MEDS ORDERED: MAGNESIUM 2GM PREMIX 50ML 50 ML IV PRN (20:00)
[2020-10-06] MEDS ORDERED: INSULIN GLARGINE 100 UNITS/ML 10 ML VIAL SQ SCH (21:00)
[2020-10-06] MEDS: APIXABAN 5 MG TABLET PO SCH (21:22)
[2020-10-06] MEDS ORDERED: METF-446 PO (22:33)
[2020-10-06] MEDS ORDERED: APIX5TAB PO (22:33)
[2020-10-06] MEDS ORDERED: GLYB5TAB8 PO (22:36)
[2020-10-06] MEDS ORDERED: ONDANSETRON 4MG INJ IVP PRN (23:00)
[2020-10-06] MEDS ORDERED: MORPHINE 4 MG SYG IV PRN (23:00)
[2020-10-06] MEDS ORDERED: MORPHINE 2 MG SYG IVP PRN (23:00)
[2020-10-06] MEDS: ZOLPIDEM TARTRATE 5 MG TAB PO PRN (23:02)
[2020-10-06] MEDS: FAMOTIDINE 20MG TAB PO SCH (23:02)
[2020-10-06] MEDS: INSULIN HUMULIN R 100 UNIT/ML 3ML SQ SCH (23:03)
[2020-10-07] MEDS: ZOSYN 3.375GM +NS 50ML IV SCH ×3 (03:17→20:39)
[2020-10-07] MEDS: 0.9%NACL 50ML IV SCH ×3 (03:17→20:39)
[2020-10-07 04:05] VITALS: BP 135/73
[2020-10-07 06:04] LABS: BASOPHILS % (AUTO) 0.4 % (0.0-5.0); EOSINOPHILS % (AUTO) 0.2 % (0.0-8.0); HEMATOCRIT 33.1 % (42-54); LYMPHOCYTES % (AUTO) 28.7 % (21.0-51.0); MEAN CORPUSCULAR HEMOGLOBIN 28.4 pg (27.0-33.0); MEAN CORPUSCULAR HGB CONC 35.6 g/dL (32.0-36.0); MEAN CORPUSCULAR VOLUME 79.8 fL (79-99); MONOCYTES % (AUTO) 15.6 % (3.0-13.0); NEUTROPHILS % (AUTO) 54.7 % (40.0-77.0); PLATELET COUNT (AUTO) 96 K/uL (130-400); RED BLOOD CELL COUNT(AUTO) 4.15 MIL/uL (4.50-6.20); RED CELL DISTRIBUTION WIDTH 14.1 % (11.0-15.5)
[2020-10-07] MEDS: INSULIN HUMULIN R 100 UNIT/ML 3ML SQ SCH ×4 (06:08→20:38)
[2020-10-07 06:15] LABS: CREATININE 0.9 mg/dL (0.5-1.5); MAGNESIUM 1.6 mg/dL (1.80-2.40); POTASSIUM 3.6 mmol/L (3.5-5.1)
[2020-10-07 08:00] VITALS: BP 152/89
[2020-10-07] MEDS: FAMOTIDINE 20MG TAB PO SCH ×2 (09:18→20:36)
[2020-10-07] MEDS: APIXABAN 5 MG TABLET PO SCH ×2 (09:18→20:36)
[2020-10-07] MEDS: TRAMADOL HCL 50 MG TABLET PO PRN (09:21)
[2020-10-07] MEDS ORDERED: DiphenhydrAMINE HCL 50 MG/ML VIAL IV PRN (11:30)
[2020-10-07] MEDS: PROCHLORPERAZINE EDISYLATE 5 MG/ML 2 ML VIAL IVP PRN ×2 (11:43→20:52)
[2020-10-07 12:00] VITALS: BP 106/69
[2020-10-07 16:00] VITALS: BP_SYST 119; BP_SYST 133; BP_DIAS 64; BP_DIAS 78
[2020-10-07 20:00] VITALS: BP 139/61
[2020-10-07] MEDS: ZOLPIDEM TARTRATE 5 MG TAB PO PRN (20:51)
[2020-10-07] MEDS ORDERED: INSULIN GLARGINE 100 UNITS/ML 10 ML VIAL SQ SCH (21:00)
[2020-10-07 23:59] VITALS: BP 130/74
[2020-10-08] MEDS: PROCHLORPERAZINE EDISYLATE 5 MG/ML 2 ML VIAL IVP PRN (03:36)
[2020-10-08 04:03] VITALS: BP 109/57
[2020-10-08 04:50] LABS: BASOPHILS % (AUTO) 0.4 % (0.0-5.0); EOSINOPHILS % (AUTO) 0.5 % (0.0-8.0); HEMATOCRIT 36.1 % (42-54); LYMPHOCYTES % (AUTO) 31.5 % (21.0-51.0); MEAN CORPUSCULAR HGB CONC 34.1 g/dL (32.0-36.0); MONOCYTES % (AUTO) 11.3 % (3.0-13.0); NEUTROPHILS % (AUTO) 55.4 % (40.0-77.0); PLATELET COUNT (AUTO) 124 K/uL (130-400); WHITE BLOOD COUNT (AUTO) 5.6 K/uL (4.8-10.8)
[2020-10-08 05:13] LABS: ALBUMIN 2.8 g/dL (3.5-5.0); BILIRUBIN,TOTAL 1.2 mg/dL (0.2-1.0); CREATININE 0.7 mg/dL (0.5-1.5); CRP QUANTITATIVE 82.5 mg/L (0.00-9.0); MAGNESIUM 1.9 mg/dL (1.80-2.40); PHOSPHORUS 2.9 mg/dL (2.5-4.9); POTASSIUM 3.4 mmol/L (3.5-5.1); TOTAL PROTEIN, SERUM 6.3 g/dL (6.0-8.3)
[2020-10-08] MEDS: 0.9%NACL 50ML IV SCH ×3 (05:32→21:02)
[2020-10-08] MEDS: ZOSYN 3.375GM +NS 50ML IV SCH ×3 (05:32→21:02)
[2020-10-08 06:02] LABS: ERYTHROCYTE SEDIMENTATION RATE 5 MM/HR (0-20)
[2020-10-08] MEDS: INSULIN HUMULIN R 100 UNIT/ML 3ML SQ SCH ×8 (06:09→21:37)
[2020-10-08] MEDS: TRAMADOL HCL 50 MG TABLET PO PRN ×3 (06:19→21:44)
[2020-10-08] MEDS ORDERED: INSULIN GLARGINE 100 UNITS/ML 10 ML VIAL SQ SCH (07:30)
[2020-10-08] MEDS ORDERED: INSULIN HUMULIN R 100 UNIT/ML 3ML SQ SCH (07:30)
[2020-10-08 08:00] VITALS: BP 107/55
[2020-10-08] MEDS ORDERED: GABAPENTIN 100 MG CAPSULE PO SCH (09:00)
[2020-10-08] MEDS: APIXABAN 5 MG TABLET PO SCH ×2 (09:17→21:00)
[2020-10-08] MEDS: FAMOTIDINE 20MG TAB PO SCH ×2 (09:17→21:00)
[2020-10-08 12:00] VITALS: BP 134/80
[2020-10-08] MEDS: ACETAMINOPHEN 325 MG TAB PO PRN (13:32)
[2020-10-08 16:00] VITALS: BP 135/93
[2020-10-08 17:28] LABS: CREATININE 0.8 mg/dL (0.5-1.5); MAGNESIUM 1.9 mg/dL (1.80-2.40)
[2020-10-08 17:30] LABS: POTASSIUM 2.9 mmol/L (3.5-5.1)
[2020-10-08] MEDS ORDERED: POTASSIUM CHLORIDE 20MEQ/100ML 100 ML IV PRN (18:00)
[2020-10-08] MEDS ORDERED: POTASSIUM CHLORIDE 10% ELIXIR 20 MEQ/15 ML UDCUP PO PRN (18:00)
[2020-10-08] MEDS ORDERED: KCL 20 MEQ ERTAB PO ONE (18:00)
[2020-10-08 19:37] VITALS: BP 147/87
[2020-10-08] MEDS: INSULIN GLARGINE 100 UNITS/ML 10 ML VIAL SQ SCH (21:37)
[2020-10-08] MEDS: ZOLPIDEM TARTRATE 5 MG TAB PO PRN (23:57)
[2020-10-09 00:12] VITALS: BP 155/81
[2020-10-09] MEDS: KCL 20 MEQ ERTAB PO PRN ×3 (02:16→08:39)
[2020-10-09] MEDS: ACETAMINOPHEN 325 MG TAB PO PRN (02:20)
[2020-10-09 03:20] VITALS: BP 125/81
[2020-10-09] MEDS: 0.9%NACL 50ML IV SCH ×2 (03:56→12:56)
[2020-10-09] MEDS: ZOSYN 3.375GM +NS 50ML IV SCH ×2 (03:56→12:56)
[2020-10-09] MEDS: INSULIN HUMULIN R 100 UNIT/ML 3ML SQ SCH ×4 (05:45→12:55)
[2020-10-09 06:30] LABS: BASOPHILS % (AUTO) 0.5 % (0.0-5.0); EOSINOPHILS % (AUTO) 1.4 % (0.0-8.0); HEMATOCRIT 35.1 % (42-54); LYMPHOCYTES % (AUTO) 32.9 % (21.0-51.0); MEAN CORPUSCULAR HEMOGLOBIN 28.2 pg (27.0-33.0); MEAN CORPUSCULAR HGB CONC 34.2 g/dL (32.0-36.0); MEAN CORPUSCULAR VOLUME 82.4 fL (79-99); MONOCYTES % (AUTO) 9.5 % (3.0-13.0); NEUTROPHILS % (AUTO) 55.2 % (40.0-77.0); PLATELET COUNT (AUTO) 137 K/uL (130-400); RED BLOOD CELL COUNT(AUTO) 4.26 MIL/uL (4.50-6.20); RED CELL DISTRIBUTION WIDTH 14.2 % (11.0-15.5); WHITE BLOOD COUNT (AUTO) 5.7 K/uL (4.8-10.8)
[2020-10-09 06:43] LABS: CREATININE 0.7 mg/dL (0.5-1.5); MAGNESIUM 1.9 mg/dL (1.80-2.40); POTASSIUM 3.4 mmol/L (3.5-5.1)
[2020-10-09] MEDS: INSULIN GLARGINE 100 UNITS/ML 10 ML VIAL SQ SCH (07:19)
[2020-10-09 08:00] VITALS: BP 123/84
[2020-10-09] MEDS: TRAMADOL HCL 50 MG TABLET PO PRN (08:36)
[2020-10-09] MEDS: FAMOTIDINE 20MG TAB PO SCH (08:37)
[2020-10-09] MEDS: APIXABAN 5 MG TABLET PO SCH (08:37)
[2020-10-09 11:51] VITALS: BP 131/75
[2020-10-09] MEDS ORDERED: CEPH500T PO ×2 (14:58→17:03)
[2020-10-09 16:00] VITALS: BP 152/73
== END 2020-10-09 18:00 | disposition home or self-care (01) | DRG 872 ==
LOC: EDH 12:34 → EDHIP 12:35 → 3CH 21:16 → 3BH 10-08 20:19
PROVIDERS: ADMIT Internal Medicine; ATTEND Internal Medicine
DX: A41.9 Sepsis, unspecified organism (principal); N39.0 Urinary tract infection, site not specified; E87.1 Hypo-osmolality and hyponatremia; I82.502 Chronic embolism and thrombosis of unspecified deep veins of left lower extremity; Z68.41 Body mass index [BMI] 40.0-44.9, adult; D69.6 Thrombocytopenia, unspecified; E86.1 Hypovolemia; E11.65 Type 2 diabetes mellitus with hyperglycemia; R31.9 Hematuria, unspecified; R16.2 Hepatomegaly with splenomegaly, not elsewhere classified; K74.60 Unspecified cirrhosis of liver; E66.9 Obesity, unspecified; Z86.711 Personal history of pulmonary embolism; E66.01 Morbid (severe) obesity due to excess calories; E78.5 Hyperlipidemia, unspecified; E11.40 Type 2 diabetes mellitus with diabetic neuropathy, unspecified; I10 Essential (primary) hypertension; Z79.01 Long term (current) use of anticoagulants; Z79.84 Long term (current) use of oral hypoglycemic drugs; Z87.891 Personal history of nicotine dependence; E88.09 Other disorders of plasma-protein metabolism, not elsewhere classified; Z20.822 Contact with and (suspected) exposure to COVID-19
CPT/HCPCS: 36415; 71045; 74176; 76705; 80048; 80053; 80305; 81001; 82550; 82948; 83036; 83605; 83690; 83735; 84100; 84132; 84145; 84484; 85025; 85610; 85651; 85730; 86140; 87040; 87088; 87635; 87804; 87880; 93005; 93306; 93356; 93970; C9803; G0378; J0696; J1200; J1815; J1885; J2270; J2405; J2543; J2550; J3010; J3480

== ENCOUNTER 2022-10-03 11:48 | Emergency (ER) | payer OTHER ==
[~2022-10-03] VITALS: Ht 175.3 cm; Wt 99.8 kg
[~2022-10-03 11:48] MED LIST changes: -ACET1TAB12 PO; +APIX5TAB PO; +CEPH500T PO; +FAMO-136 PO; -GLIP5POW MC; +GLYB5TAB8 PO; -HUM10VIA SQ; -IBUP-2077 PO; -METF-444 PO; +METF-446 PO; +ONDA22I PO
[2022-10-03] MEDS ORDERED: ONDANSETRON 4MG INJ IVP ONE (12:30)
[2022-10-03] MEDS ORDERED: LACTATED RINGERS 1000ML 1,000 ML IV ONE (12:30)
[2022-10-03 13:23] LABS: BASOPHILS % (AUTO) 0.5 % (0.0-5.0); EOSINOPHILS % (AUTO) 1.1 % (0.0-8.0); HEMATOCRIT 44.8 % (42-54); LYMPHOCYTES % (AUTO) 24.7 % (21.0-51.0); MEAN CORPUSCULAR HEMOGLOBIN 28.5 pg (27.0-33.0); MEAN CORPUSCULAR HGB CONC 34.8 g/dL (32.0-36.0); MEAN CORPUSCULAR VOLUME 81.8 fL (79-99); MONOCYTES % (AUTO) 6.8 % (3.0-13.0); NEUTROPHILS % (AUTO) 66.5 % (40.0-77.0); PLATELET COUNT (AUTO) 164 K/uL (130-400); RED BLOOD CELL COUNT(AUTO) 5.48 MIL/uL (4.50-6.20); RED CELL DISTRIBUTION WIDTH 12.8 % (11.0-15.5); WHITE BLOOD COUNT (AUTO) 11.2 K/uL (4.8-10.8)
[2022-10-03 13:30] LABS: CARBON DIOXIDE 27 mmol/L (21-32); CHLORIDE 96 mmol/L (101-111); CREATININE 0.9 mg/dL (0.5-1.5); GLOMERULAR FILTR. RATE CALC 98 mL/min (>90); GLUCOSE,RANDOM 273 mg/dL (70-105); POTASSIUM 4.2 mmol/L (3.5-5.1); SODIUM SERUM 136 mmol/L (136-145); UREA NITROGEN, BLOOD 11 mg/dL (7-18)
[2022-10-03 13:34] LABS: ALANINE AMINOTRANSFERASE 18 U/L (12-78); ALBUMIN 3.8 g/dL (3.5-5.0); ASPARTATE AMINOTRANSFERASE 9 U/L (10-37); TOTAL PROTEIN, SERUM 7.4 g/dL (6.0-8.3)
[2022-10-03 13:38] LABS: LIPASE < 50 U/L (114-286)
[2022-10-03 14:26] VITALS: BP 151/100; PULSE 77; RESP 18; O2SAT 98
[2022-10-03] MEDS ORDERED: IOHEXOL-350 75 ML VIAL IV ONE (16:07)
[2022-10-03] MEDS ORDERED: PROM25TA7 PO (17:16)
[2022-10-03] MEDS ORDERED: PANT20TA18 PO (17:16)
== END 2022-10-03 17:53 | disposition home or self-care (01) ==
LOC: EDH 11:48
DX: R10.13 Epigastric pain (principal); R11.0 Nausea; E11.65 Type 2 diabetes mellitus with hyperglycemia; E78.00 Pure hypercholesterolemia, unspecified; Z79.84 Long term (current) use of oral hypoglycemic drugs; Z79.899 Other long term (current) drug therapy; Z86.718 Personal history of other venous thrombosis and embolism; Z86.711 Personal history of pulmonary embolism
CPT/HCPCS: 99285; 74177; 96374; 96361; 82270; 80053; 83690; 85025; 36415; 93005; J2405; Q9967

== ENCOUNTER 2022-12-28 11:09 | Emergency (ER) | payer OTHER ==
[~2022-12-28] VITALS: Ht 175.3 cm; Wt 95.3 kg
[~2022-12-28 11:09] MED LIST changes: +PANT20TA18 PO; +PROM25TA7 PO
[2022-12-28] MEDS ORDERED: PROMETHAZINE HCL 25 MG/ML 1ML AMPULE IM ONE ×2 (12:30→15:00)
[2022-12-28 12:46] LABS: BASOPHILS # (AUTO) 0.04 K/uL (0.00-0.20); BASOPHILS % (AUTO) 0.4 % (0.0-5.0); EOSINOPHILS # (AUTO) 0.06 K/uL (0.00-0.70); EOSINOPHILS % (AUTO) 0.5 % (0.0-8.0); HEMATOCRIT 46.4 % (42-54); IMMATURE GRANULOCYTE ABSOLUTE 0.04 K/uL (0-1); LYMPHOCYTES # (AUTO) 1.7 K/uL (1.0-4.8); LYMPHOCYTES % (AUTO) 15.7 % (21.0-51.0); MEAN CORPUSCULAR HEMOGLOBIN 29.2 pg (27.0-33.0); MEAN CORPUSCULAR HGB CONC 34.9 g/dL (32.0-36.0); MEAN CORPUSCULAR VOLUME 83.8 fL (79-99); MONOCYTES # (AUTO) 0.5 K/uL (0.1-1.0); MONOCYTES % (AUTO) 4.2 % (3.0-13.0); NEUTROPHILS # (AUTO) 8.8 K/uL (1.8-7.7); NEUTROPHILS % (AUTO) 78.8 % (40.0-77.0); PLATELET COUNT (AUTO) 154 K/uL (130-400); RED BLOOD CELL COUNT(AUTO) 5.54 MIL/uL (4.50-6.20); RED CELL DISTRIBUTION WIDTH 13.2 % (11.0-15.5); WHITE BLOOD COUNT (AUTO) 11.1 K/uL (4.8-10.8)
[2022-12-28 12:57] LABS: ALBUMIN 4.1 g/dL (3.5-5.0); POTASSIUM 3.7 mmol/L (3.5-5.1); TOTAL PROTEIN, SERUM 7.8 g/dL (6.0-8.3)
[2022-12-28] MEDS ORDERED: PANTOPRAZOLE 40 MG/VIAL IVP ONE (15:00)
[2022-12-28] MEDS ORDERED: LORAZEPAM 2 MG/ML 1 ML VIAL IVP ONE (15:00)
[2022-12-28 15:29] VITALS: BP 142/92; PULSE 88; RESP 24; O2SAT 100
[2022-12-28] MEDS ORDERED: PROM25TA7 PO (17:50)
== END 2022-12-28 18:45 | disposition home or self-care (01) ==
LOC: EDH 11:09
DX: F41.9 Anxiety disorder, unspecified (principal); R11.0 Nausea; E11.9 Type 2 diabetes mellitus without complications; E78.00 Pure hypercholesterolemia, unspecified; Z79.84 Long term (current) use of oral hypoglycemic drugs; Z79.899 Other long term (current) drug therapy; Z98.890 Other specified postprocedural states
CPT/HCPCS: 99284; 96374; 96375; 80053; 85025; 36415; 96372 ×2; J2550 ×2; J2060; C9113; 96361

== ENCOUNTER 2023-05-21 11:43 | Emergency (ER) | payer OTHER ==
[~2023-05-21] VITALS: Ht 172.7 cm; Wt 99.8 kg
[2023-05-21 12:46] LABS: BASOPHILS # (AUTO) 0.04 K/uL (0.00-0.20); BASOPHILS % (AUTO) 0.3 % (0.0-5.0); HEMATOCRIT 39.8 % (42-54); IMMATURE GRANULOCYTE ABSOLUTE 0.14 K/uL (0-1); LYMPHOCYTES # (AUTO) 1.2 K/uL (1.0-4.8); MEAN CORPUSCULAR HEMOGLOBIN 28.7 pg (27.0-33.0); MEAN CORPUSCULAR HGB CONC 33.7 g/dL (32.0-36.0); MEAN CORPUSCULAR VOLUME 85.2 fL (79-99); MONOCYTES % (AUTO) 6.7 % (3.0-13.0); NEUTROPHILS % (AUTO) 84.1 % (40.0-77.0); PLATELET COUNT (AUTO) 159 K/uL (130-400); RED BLOOD CELL COUNT(AUTO) 4.67 MIL/uL (4.50-6.20); RED CELL DISTRIBUTION WIDTH 12.6 % (11.0-15.5); WHITE BLOOD COUNT (AUTO) 15.4 K/uL (4.8-10.8)
[2023-05-21 12:54] LABS: CREATININE 0.8 mg/dL (0.5-1.5); POTASSIUM 4.9 mmol/L (3.5-5.1)
[2023-05-21 12:58] LABS: ALBUMIN 2.6 g/dL (3.5-5.0); BILIRUBIN,TOTAL 0.9 mg/dL (0.2-1.0)
[2023-05-21 15:01] LABS: ABG HCO3 20.3 mmol/L (21.0-28.0); ABG OXYGEN SATURATION 96.8 % (95.0-99.0); ABG PCO2 28 mmHg (35-48); ABG PH 7.471 (7.35-7.450); PO2, ARTERIAL BG 81.4 mmHg (83.0-108.0); VENT MODE, BG RA (ROOM AIR)
[2023-05-21] MEDS: ONDANSETRON 4MG INJ IVP ONE ×2 (15:58→17:12)
[2023-05-21] MEDS: 0.9%NACL 1000ML 1,000 ML IV ONE (15:59)
[2023-05-21] MEDS: INSULIN HUMULIN R 100 UNIT/ML 3ML IV STA (15:59)
[2023-05-21] MEDS: MORPHINE 2 MG SYG IVP ONE (17:14)
[2023-05-21 17:17] VITALS: BP 143/98; PULSE 84; RESP 20; O2SAT 97
[2023-05-21 18:22] LABS: APPEARANCE,URINE CLEAR (CLEAR); BILIRUBIN,URINE NEGATIVE (NEGATIVE); COLOR,URINE YELLOW (YELLOW); GLUCOSE, URINE (UA) >=1000 mg/dL (NEGATIVE); KETONES,URINE 100 mg/dL (NEGATIVE); LEUKOCYTE ESTERASE ,URINE NEGATIVE Leu/uL (NEGATIVE); NITRATE,URINE NEGATIVE (NEGATIVE); OCCULT BLOOD,URINE SMALL (NEGATIVE); PH,URINE 5.5 (5.0-8.0); PROTEIN,URINE 100 mg/dL (NEGATIVE); UROBILINOGEN,URINE 0.2 mg/dL (0.2-1.0)
[2023-05-21 18:23] LABS: ADD UA MICROSCOPIC YES; BACTERIA,URINE RARE /HPF (None Seen); MUCUS,URINE RARE LPF (None Seen); SQUAMOUS EPITHELIAL CELL,UR RARE /HPF (0-2); YEAST,URINE BUDDING RARE /HPF (None Seen)
[2023-05-21] MEDS ORDERED: ONDA4TAB10 PO (18:57)
== END 2023-05-21 19:25 | disposition home or self-care (01) ==
LOC: EDH 11:43
DX: E11.65 Type 2 diabetes mellitus with hyperglycemia (principal); E86.0 Dehydration; E78.00 Pure hypercholesterolemia, unspecified; Z79.84 Long term (current) use of oral hypoglycemic drugs; Z79.899 Other long term (current) drug therapy; Z98.890 Other specified postprocedural states
CPT/HCPCS: 99284; 96374; 96375; 96361; 80053; 82803; 83690; 85025; 82948; 82010; 81001; 36415; 96376; 36600; J1815; J2270; J7030; J2405 ×2

== ENCOUNTER 2023-05-23 14:58 | Inpatient (IN) | payer OTHER ==
[2023-05-23] VITALS (15 sets, daily range): BP systolic 108–151; BP diastolic 50–85; PULSE 68–85; RESP 16–20
[~2023-05-23] VITALS: Ht 172.7 cm; Wt 113.9 kg
[~2023-05-23 14:58] MED LIST changes: +ONDA4TAB10 PO
[2023-05-23 15:50] LABS: BASOPHILS # (AUTO) 0.04 K/uL (0.00-0.20); BASOPHILS % (AUTO) 0.2 % (0.0-5.0); EOSINOPHILS # (AUTO) 0.01 K/uL (0.00-0.70); EOSINOPHILS % (AUTO) 0.1 % (0.0-8.0); HEMATOCRIT 40.6 % (42-54); IMMATURE GRANULOCYTE ABSOLUTE 0.28 K/uL (0-1); LYMPHOCYTES # (AUTO) 1.1 K/uL (1.0-4.8); LYMPHOCYTES % (AUTO) 6.8 % (21.0-51.0); MEAN CORPUSCULAR HGB CONC 33.5 g/dL (32.0-36.0); MEAN CORPUSCULAR VOLUME 86.6 fL (79-99); MONOCYTES # (AUTO) 1.2 K/uL (0.1-1.0); MONOCYTES % (AUTO) 7.2 % (3.0-13.0); NEUTROPHILS # (AUTO) 13.7 K/uL (1.8-7.7); PLATELET COUNT (AUTO) 154 K/uL (130-400); RED BLOOD CELL COUNT(AUTO) 4.69 MIL/uL (4.50-6.20); RED CELL DISTRIBUTION WIDTH 12.6 % (11.0-15.5); WHITE BLOOD COUNT (AUTO) 16.4 K/uL (4.8-10.8)
[2023-05-23] MEDS ORDERED: CLINDAMYCIN IVPB 900MG/50ML 50 ML IV SCH (16:00)
[2023-05-23 16:02] LABS: INR 1.07 (0.85-1.15); PROTHROMBIN TIME 12.6 SEC (9.6-11.6)
[2023-05-23 16:03] LABS: PARTIAL THROMBOPLASTIN TIME 30.2 SEC (26.3-35.5)
[2023-05-23] MEDS: CLINDAMYCIN IVPB 900MG/50ML 50 ML IV ONE (16:24)
[2023-05-23] MEDS: ZOSYN 3.375GM +NS 50ML IV SCH ×2 (16:25→23:08)
[2023-05-23 16:27] LABS: ALBUMIN 2.5 g/dL (3.5-5.0); BILIRUBIN,TOTAL 0.9 mg/dL (0.2-1.0); CREATININE 0.8 mg/dL (0.5-1.5); POTASSIUM 3.3 mmol/L (3.5-5.1); TOTAL PROTEIN, SERUM 6.7 g/dL (6.0-8.3)
[2023-05-23] MEDS ORDERED: MORPHINE 2 MG SYG IM ONE (16:30)
[2023-05-23] MEDS: MORPHINE 2 MG SYG IVP ONE (16:36)
[2023-05-23] MEDS: MORPHINE 2 MG SYG ONE (16:37)
[2023-05-23] MEDS: INSULIN HUMULIN R 100 UNIT/ML 3ML IV ONE (16:58)
[2023-05-23] MEDS ORDERED: VANCOMYCIN KIT 1 GM/250 ML IV.KIT IV SCH (17:00)
[2023-05-23] MEDS: ONDANSETRON 4MG INJ IVP ONE (17:00)
[2023-05-23] MEDS: ONDANSETRON 4MG INJ ONE (17:07)
[2023-05-23] MEDS ORDERED: VANCOMYCIN PROTOCOL PER PHARMACY IV SCH (17:30)
[2023-05-23] MEDS: VANCOMYCIN 1.75 GM/250 ML BAG 250 ML IV SCH (17:30)
[2023-05-23 17:50] LABS: HEMOGLOBIN A1C 10.7 % (4.0-6.0)
[2023-05-23] MEDS ORDERED: INSULIN HUMULIN R 100 UNIT/ML 3ML SQ SCH (18:00)
[2023-05-23] MEDS: 0.9%NACL 1000ML 1,000 ML IV SCH (18:03)
[2023-05-23 18:32] LABS: THYROID STIMULATING HORMONE 0.63 uIU/mL (0.36-3.74)
[2023-05-23] MEDS ORDERED: MIDAZOLAM HCL 1 MG/ML 2ML VIAL ONE (19:13)
[2023-05-23] MEDS ORDERED: FENTANYL CITRATE PF 50 MCG/1 ML 2ML VIAL ONE ×3 (19:13→20:35)
[2023-05-23] MEDS ORDERED: PROPOFOL 10 MG/ML 20ML VIAL IV ONE ×4 (19:24→20:32)
[2023-05-23] MEDS ORDERED: ONDANSETRON 4MG INJ ONE (19:25)
[2023-05-23] MEDS: LIDOCAINE HCL 400MG/20ML VIAL ONE (19:45)
[2023-05-23] MEDS: BUPIVACAINE/PF 0.5% 30ML VIAL ONE (19:45)
[2023-05-23] MEDS ORDERED: TRAM100T40 PO (22:50)
[2023-05-23] MEDS ORDERED: [UNRECOGNIZED DRUG - OTHER] PO (22:50)
[2023-05-23] MEDS: CLINDAMYCIN IVPB 600MG/50ML 50 ML IV SCH (23:08)
[2023-05-23] MEDS: HYDROMORPHONE 1 MG INJ IVP PRN (23:29)
[2023-05-24] VITALS (9 sets, daily range): BP systolic 115–162; BP diastolic 51–97; PULSE 54–78; RESP 18–20; O2SAT 95–96
[2023-05-24 02:50] LABS: APPEARANCE,URINE CLEAR (CLEAR); BILIRUBIN,URINE NEGATIVE (NEGATIVE); COLOR,URINE YELLOW (YELLOW); GLUCOSE, URINE (UA) 200 mg/dL (NEGATIVE); KETONES,URINE 20 mg/dL (NEGATIVE); LEUKOCYTE ESTERASE ,URINE NEGATIVE Leu/uL (NEGATIVE); NITRATE,URINE NEGATIVE (NEGATIVE); OCCULT BLOOD,URINE NEGATIVE (NEGATIVE); PH,URINE 5.5 (5.0-8.0); PROTEIN,URINE 30 mg/dL (NEGATIVE); UROBILINOGEN,URINE 0.2 mg/dL (0.2-1.0)
[2023-05-24 02:52] LABS: ADD UA MICROSCOPIC YES
[2023-05-24] MEDS: VANCOMYCIN 1G/250ML KIT 250 ML IV SCH (05:05)
[2023-05-24] MEDS: INSULIN HUMULIN R 100 UNIT/ML 3ML SQ SCH (06:22)
[2023-05-24 08:46] LABS: BASOPHILS # (AUTO) 0.05 K/uL (0.00-0.20); BASOPHILS % (AUTO) 0.4 % (0.0-5.0); EOSINOPHILS # (AUTO) 0.01 K/uL (0.00-0.70); EOSINOPHILS % (AUTO) 0.1 % (0.0-8.0); HEMATOCRIT 34.9 % (42-54); LYMPHOCYTES # (AUTO) 1.5 K/uL (1.0-4.8); MEAN CORPUSCULAR HEMOGLOBIN 28.9 pg (27.0-33.0); MEAN CORPUSCULAR HGB CONC 33.8 g/dL (32.0-36.0); MEAN CORPUSCULAR VOLUME 85.5 fL (79-99); MONOCYTES # (AUTO) 1.2 K/uL (0.1-1.0); MONOCYTES % (AUTO) 8.4 % (3.0-13.0); NEUTROPHILS # (AUTO) 10.7 K/uL (1.8-7.7); NEUTROPHILS % (AUTO) 77.9 % (40.0-77.0); PLATELET COUNT (AUTO) 139 K/uL (130-400); RED BLOOD CELL COUNT(AUTO) 4.08 MIL/uL (4.50-6.20); RED CELL DISTRIBUTION WIDTH 12.8 % (11.0-15.5); WHITE BLOOD COUNT (AUTO) 13.7 K/uL (4.8-10.8)
[2023-05-24 08:56] LABS: CREATININE 0.7 mg/dL (0.5-1.5)
[2023-05-24 08:57] LABS: POTASSIUM 2.8 mmol/L (3.5-5.1)
[2023-05-24] MEDS: POTASSIUM CHLORIDE 20MEQ/100ML 100 ML IV PRN (09:52)
[2023-05-24] MEDS: MORPHINE 2 MG SYG IVP PRN (14:58)
[2023-05-24 17:52] LABS: MAGNESIUM 1.7 mg/dL (1.80-2.40); POTASSIUM 3.3 mmol/L (3.5-5.1)
[2023-05-24] MEDS: MAGNESIUM 2GM PREMIX 50ML 50 ML IV PRN (18:01)
[2023-05-24] MEDS: FAMOTIDINE 20MG VIAL IV ONE (18:25)
[2023-05-24] MEDS: KCL 20 MEQ ERTAB PO PRN (18:26)
[2023-05-24] MEDS ORDERED: POTASSIUM CHLORIDE 10% ELIXIR 20 MEQ/15 ML UDCUP PO PRN (18:30)
[2023-05-24] MEDS: INSULIN GLARGINE 100 UNITS/ML 10 ML VIAL SQ SCH (20:12)
[2023-05-24] MEDS: LORAZEPAM 2 MG/ML 1 ML VIAL IVP PRN (20:13)
[2023-05-24] MEDS: APIXABAN 5 MG TABLET PO SCH (20:14)
[2023-05-24] MEDS ORDERED: COMPOUND IV REFRIGERATED 1 EACH IVSOLN MISC PRN (22:00)
[2023-05-24] MEDS: VANCOMYCIN 1.25 GM/250 ML BAG 250 ML IV SCH (23:10)
[2023-05-25] VITALS (8 sets, daily range): BP systolic 126–165; BP diastolic 70–92; PULSE 66–101; RESP 17–20; O2SAT 95
[2023-05-25 03:47] LABS: BASOPHILS # (AUTO) 0.05 K/uL (0.00-0.20); BASOPHILS % (AUTO) 0.4 % (0.0-5.0); EOSINOPHILS # (AUTO) 0.03 K/uL (0.00-0.70); EOSINOPHILS % (AUTO) 0.2 % (0.0-8.0); HEMATOCRIT 35.1 % (42-54); IMMATURE GRANULOCYTE ABSOLUTE 0.48 K/uL (0-1); LYMPHOCYTES # (AUTO) 1.7 K/uL (1.0-4.8); LYMPHOCYTES % (AUTO) 13.5 % (21.0-51.0); MEAN CORPUSCULAR HEMOGLOBIN 28.7 pg (27.0-33.0); MEAN CORPUSCULAR HGB CONC 33.9 g/dL (32.0-36.0); MEAN CORPUSCULAR VOLUME 84.6 fL (79-99); MONOCYTES # (AUTO) 0.9 K/uL (0.1-1.0); MONOCYTES % (AUTO) 7.2 % (3.0-13.0); NEUTROPHILS # (AUTO) 9.2 K/uL (1.8-7.7); NEUTROPHILS % (AUTO) 74.8 % (40.0-77.0); PLATELET COUNT (AUTO) 157 K/uL (130-400); RED BLOOD CELL COUNT(AUTO) 4.15 MIL/uL (4.50-6.20); RED CELL DISTRIBUTION WIDTH 12.7 % (11.0-15.5); WHITE BLOOD COUNT (AUTO) 12.3 K/uL (4.8-10.8)
[2023-05-25 04:09] LABS: ALBUMIN 1.9 g/dL (3.5-5.0); BILIRUBIN,TOTAL 0.8 mg/dL (0.2-1.0); CREATININE 0.7 mg/dL (0.5-1.5); POTASSIUM 3.1 mmol/L (3.5-5.1); TOTAL PROTEIN, SERUM 5.8 g/dL (6.0-8.3)
[2023-05-25] MEDS: FAMOTIDINE 20MG VIAL IV SCH (09:05)
[2023-05-25] MEDS: SENNOSIDES 8.6 MG TABLET PO SCH (20:46)
[2023-05-25] MEDS: ATORVASTATIN 40 MG TABLET PO SCH (20:46)
[2023-05-25] MEDS: DIPH,PERTUSS(ACELL),TET VAC/PF 0.5 ML VIAL IM ONE (21:09)
[2023-05-25] MEDS ORDERED: IOHEXOL 350 MG/ML 100ML INFUS..BTL IV ONE (21:24)
[2023-05-25] MEDS ORDERED: IOHEXOL-350 50ML VIAL IV ONE (21:24)
[2023-05-26] VITALS (8 sets, daily range): BP systolic 138–172; BP diastolic 64–91; PULSE 70–82; RESP 18–20; O2SAT 96–99
[2023-05-26 04:50] LABS: BASOPHILS # (AUTO) 0.06 K/uL (0.00-0.20); BASOPHILS % (AUTO) 0.6 % (0.0-5.0); EOSINOPHILS # (AUTO) 0.08 K/uL (0.00-0.70); EOSINOPHILS % (AUTO) 0.7 % (0.0-8.0); HEMATOCRIT 33.1 % (42-54); IMMATURE GRANULOCYTE ABSOLUTE 0.33 K/uL (0-1); LYMPHOCYTES # (AUTO) 1.9 K/uL (1.0-4.8); LYMPHOCYTES % (AUTO) 17.5 % (21.0-51.0); MEAN CORPUSCULAR HEMOGLOBIN 28.8 pg (27.0-33.0); MEAN CORPUSCULAR HGB CONC 33.5 g/dL (32.0-36.0); MONOCYTES # (AUTO) 0.8 K/uL (0.1-1.0); MONOCYTES % (AUTO) 7.3 % (3.0-13.0); NEUTROPHILS # (AUTO) 7.6 K/uL (1.8-7.7); NEUTROPHILS % (AUTO) 70.8 % (40.0-77.0); PLATELET COUNT (AUTO) 154 K/uL (130-400); RED BLOOD CELL COUNT(AUTO) 3.85 MIL/uL (4.50-6.20); RED CELL DISTRIBUTION WIDTH 12.7 % (11.0-15.5); WHITE BLOOD COUNT (AUTO) 10.8 K/uL (4.8-10.8)
[2023-05-26 05:13] LABS: ALBUMIN 1.8 g/dL (3.5-5.0); BILIRUBIN,TOTAL 0.6 mg/dL (0.2-1.0); CREATININE 0.7 mg/dL (0.5-1.5); MAGNESIUM 1.8 mg/dL (1.80-2.40); POTASSIUM 3.2 mmol/L (3.5-5.1); TOTAL PROTEIN, SERUM 5.6 g/dL (6.0-8.3)
[2023-05-26] MEDS: ENOXAPARIN SODIUM 120 MG/0.8ML SQ ONE (09:09)
[2023-05-26] MEDS: ZINC SULFATE 220 CAPSULE PO SCH (09:10)
[2023-05-26] MEDS: ERGOCALCIFEROL (VITAMIN D2) 50,000 UNIT CAPSULE PO ONE (09:10)
[2023-05-26] MEDS: VITAMIN B COMPLEX 1 CAPSULE PO SCH (09:10)
[2023-05-26] MEDS: CLOPIDOGREL 75MG TAB PO SCH (09:11)
[2023-05-26] MEDS: CEFEPIME HCL 2 GM VIAL IVPB SCH (12:04)
[2023-05-26] MEDS: CEFAZOLIN SODIUM 2 GM VIAL IVPB SCH (13:45)
[2023-05-27] VITALS (10 sets, daily range): BP systolic 124–169; BP diastolic 62–112; PULSE 71–86; RESP 18–21; O2SAT 96–98
[2023-05-27 04:00] LABS: BASOPHILS # (AUTO) 0.03 K/uL (0.00-0.20); BASOPHILS % (AUTO) 0.3 % (0.0-5.0); EOSINOPHILS # (AUTO) 0.08 K/uL (0.00-0.70); EOSINOPHILS % (AUTO) 0.8 % (0.0-8.0); IMMATURE GRANULOCYTE ABSOLUTE 0.19 K/uL (0-1); LYMPHOCYTES # (AUTO) 1.6 K/uL (1.0-4.8); LYMPHOCYTES % (AUTO) 15.9 % (21.0-51.0); MEAN CORPUSCULAR HEMOGLOBIN 29.2 pg (27.0-33.0); MEAN CORPUSCULAR HGB CONC 33.3 g/dL (32.0-36.0); MEAN CORPUSCULAR VOLUME 87.5 fL (79-99); MONOCYTES # (AUTO) 0.7 K/uL (0.1-1.0); MONOCYTES % (AUTO) 6.6 % (3.0-13.0); NEUTROPHILS # (AUTO) 7.5 K/uL (1.8-7.7); NEUTROPHILS % (AUTO) 74.5 % (40.0-77.0); PLATELET COUNT (AUTO) 151 K/uL (130-400); RED BLOOD CELL COUNT(AUTO) 3.77 MIL/uL (4.50-6.20); RED CELL DISTRIBUTION WIDTH 12.7 % (11.0-15.5)
[2023-05-27 04:25] LABS: ALBUMIN 1.9 g/dL (3.5-5.0); BILIRUBIN,TOTAL 0.5 mg/dL (0.2-1.0); CREATININE 0.7 mg/dL (0.5-1.5); MAGNESIUM 1.9 mg/dL (1.80-2.40); POTASSIUM 3.2 mmol/L (3.5-5.1); TOTAL PROTEIN, SERUM 5.9 g/dL (6.0-8.3)
[2023-05-28] VITALS (7 sets, daily range): BP systolic 126–174; BP diastolic 54–96; PULSE 76–89; RESP 18–21; O2SAT 94–98
[2023-05-28 04:29] LABS: BASOPHILS # (AUTO) 0.04 K/uL (0.00-0.20); BASOPHILS % (AUTO) 0.4 % (0.0-5.0); EOSINOPHILS # (AUTO) 0.06 K/uL (0.00-0.70); EOSINOPHILS % (AUTO) 0.6 % (0.0-8.0); HEMATOCRIT 32.1 % (42-54); IMMATURE GRANULOCYTE ABSOLUTE 0.15 K/uL (0-1); LYMPHOCYTES # (AUTO) 1.7 K/uL (1.0-4.8); LYMPHOCYTES % (AUTO) 17.3 % (21.0-51.0); MEAN CORPUSCULAR HEMOGLOBIN 29.1 pg (27.0-33.0); MEAN CORPUSCULAR HGB CONC 33.6 g/dL (32.0-36.0); MEAN CORPUSCULAR VOLUME 86.5 fL (79-99); MONOCYTES # (AUTO) 0.7 K/uL (0.1-1.0); MONOCYTES % (AUTO) 7.3 % (3.0-13.0); NEUTROPHILS # (AUTO) 7.3 K/uL (1.8-7.7); NEUTROPHILS % (AUTO) 72.9 % (40.0-77.0); PLATELET COUNT (AUTO) 155 K/uL (130-400); RED BLOOD CELL COUNT(AUTO) 3.71 MIL/uL (4.50-6.20); RED CELL DISTRIBUTION WIDTH 12.7 % (11.0-15.5)
[2023-05-28 04:42] LABS: ALBUMIN 1.8 g/dL (3.5-5.0); BILIRUBIN,TOTAL 0.5 mg/dL (0.2-1.0); CREATININE 0.8 mg/dL (0.5-1.5); MAGNESIUM 2.1 mg/dL (1.80-2.40); POTASSIUM 3.5 mmol/L (3.5-5.1); TOTAL PROTEIN, SERUM 5.9 g/dL (6.0-8.3)
[2023-05-28] MEDS: METRONIDAZOLE 500 MG TABLET PO SCH (16:26)
[2023-05-29] VITALS (13 sets, daily range): BP systolic 127–166; BP diastolic 57–100; PULSE 76–86; RESP 16–20; O2SAT 94
[2023-05-29] MEDS: HYDROMORPHONE 0.5 MG SYG (0.5MG/0.5ML) IVP ONE (02:03)
[2023-05-29 02:09] LABS: DRVVT CONFIRMATION-LUPUS 1.4 ratio (0.8-1.2); DRVVT-LUPUS ANTICOAGULANT 115.4 sec (0.0-47.0)
[2023-05-29 03:09] LABS: PROTEIN S, FREE 119 % (61-136)
[2023-05-29 06:35] LABS: INR 1.11 (0.85-1.15)
[2023-05-29 06:36] LABS: PARTIAL THROMBOPLASTIN TIME 30.1 SEC (26.3-35.5)
[2023-05-29] MEDS: HYDROMORPHONE 0.5 MG SYG (0.5MG/0.5ML) IVP PRN (08:40)
[2023-05-29] MEDS: FAMOTIDINE 20MG TAB PO SCH (09:00)
[2023-05-29] MEDS ORDERED: LIDOCAINE HCL 400MG/20ML VIAL ONE (16:13)
[2023-05-29] MEDS ORDERED: IODIXANOL 320 MG/ML 100 ML VIAL ONE ×2 (16:14→16:55)
[2023-05-29] MEDS ORDERED: HEPARIN 10,000 UNIT/10ML (1,000 UNIT/ML) VIAL ONE (16:14)
[2023-05-29] MEDS ORDERED: MIDAZOLAM HCL 1 MG/ML 2ML VIAL ONE ×2 (16:14→16:41)
[2023-05-29] MEDS ORDERED: FENTANYL CITRATE PF 50 MCG/1 ML 2ML VIAL ONE (16:14)
[2023-05-29] MEDS ORDERED: NITROGLYCERIN 50MG VIAL ONE (16:14)
[2023-05-29] MEDS ORDERED: HYDRALAZINE 20MG/ML VIAL ONE (16:58)
[2023-05-29] MEDS ORDERED: LABETALOL 20MG SYG IV ONE (17:08)
[2023-05-29] MEDS ORDERED: DEXTROSE 50%-WATER 50 ML DISP.SYRIN IV PRN (17:30)
[2023-05-29] MEDS ORDERED: GLUCAGON 1MG KIT 1 MG ML IM PRN (17:30)
[2023-05-29] MEDS: 0.9%NACL 1000ML 1,000 ML IV SCH (18:21)
[2023-05-30 04:30] VITALS: BP 118/72; PULSE 85; RESP 20
[2023-05-30 08:11] VITALS: BP 159/81; PULSE 80; RESP 17
[2023-05-30] MEDS: HYDROCODONE/ACETAMINOPHEN 10/325 MG TAB PO PRN (09:25)
[2023-05-30 11:22] VITALS: BP 140/81; PULSE 74; RESP 17
[2023-05-30 15:08] VITALS: O2SAT 96
[2023-05-30 17:20] VITALS: BP 164/100; PULSE 78; RESP 17
[2023-05-30 20:04] VITALS: BP 180/97; PULSE 84; RESP 18
[2023-05-31] VITALS (8 sets, daily range): BP systolic 120–177; BP diastolic 66–97; PULSE 67–90; RESP 16–20; O2SAT 97
[2023-05-31] MEDS: CEFAZOLIN SODIUM 1 GM VIAL IVPB SCH (21:09)
[2023-05-31] MEDS: LORAZEPAM 2 MG/ML 1 ML VIAL IVP PRN (21:41)
[2023-05-31] MEDS: LORAZEPAM 2 MG/ML 1 ML VIAL ONE (21:42)
[2023-06-01 04:20] VITALS: BP 132/79; PULSE 67; RESP 20
[2023-06-01 08:00] VITALS: BP 147/84; PULSE 76; RESP 20
[2023-06-01 08:45] VITALS: O2SAT 94
[2023-06-01 12:00] VITALS: BP 146/99; PULSE 78; RESP 16
[2023-06-01 16:00] VITALS: BP 156/96; PULSE 88; RESP 20
[2023-06-01 19:00] VITALS: BP 155/92; PULSE 81; RESP 20
[2023-06-02 00:13] VITALS: BP 157/97; PULSE 73; RESP 20
[2023-06-02 04:09] VITALS: BP 135/65; PULSE 70; RESP 18
[2023-06-02 08:00] VITALS: BP 146/93; PULSE 75; RESP 20
[2023-06-02 11:17] LABS: HEMATOCRIT 31.2 % (42-54); MEAN CORPUSCULAR HEMOGLOBIN 29.1 pg (27.0-33.0); MEAN CORPUSCULAR HGB CONC 33.3 g/dL (32.0-36.0); MEAN CORPUSCULAR VOLUME 87.4 fL (79-99); RED BLOOD CELL COUNT(AUTO) 3.57 MIL/uL (4.50-6.20); RED CELL DISTRIBUTION WIDTH 12.8 % (11.0-15.5); WHITE BLOOD COUNT (AUTO) 8.6 K/uL (4.8-10.8)
[2023-06-02 11:25] LABS: CREATININE 0.9 mg/dL (0.5-1.3); POTASSIUM 3.7 mmol/L (3.5-5.1)
[2023-06-02 12:00] VITALS: BP 148/91; PULSE 70; RESP 20
[2023-06-02] MEDS: LORAZEPAM 2 MG/ML 1 ML VIAL IVP PRN (12:57)
[2023-06-02 16:00] VITALS: BP 138/74; PULSE 82; RESP 18
[2023-06-02 19:00] VITALS: BP 133/73; PULSE 79; RESP 18
[2023-06-03] VITALS (7 sets, daily range): BP systolic 131–168; BP diastolic 75–97; PULSE 66–81; RESP 20–24
[2023-06-03] MEDS: HYDROMORPHONE 0.5 MG SYG (0.5MG/0.5ML) IVP PRN (17:15)
[2023-06-03] MEDS: HYDROXYZINE 25 MG TABLET PO PRN (21:41)
[2023-06-04 04:00] VITALS: BP 150/85; PULSE 69; RESP 20
[2023-06-04 07:34] VITALS: BP 153/81; PULSE 67; RESP 18
[2023-06-04 11:33] VITALS: BP 163/83; PULSE 75; RESP 18
[2023-06-04 15:42] VITALS: BP 136/72; PULSE 73; RESP 18
[2023-06-04 20:00] VITALS: BP 155/94; PULSE 75; RESP 14; O2SAT 94
[2023-06-04 23:47] VITALS: BP 147/76; PULSE 79; RESP 16
[2023-06-05 03:14] VITALS: BP 141/90; PULSE 88; RESP 16
[2023-06-05 08:19] VITALS: BP 144/78; PULSE 84; RESP 16
[2023-06-05 08:50] VITALS: O2SAT 94
[2023-06-05] MEDS: HYDROCODONE/ACETAMINOPHEN 10/325 MG TAB PO PRN (10:42)
[2023-06-05 12:03] VITALS: BP 157/89; PULSE 70; RESP 16
[2023-06-05] MEDS ORDERED: INSLAN SQ (13:04)
[2023-06-05] MEDS ORDERED: CLOP-31 PO (13:04)
[2023-06-05] MEDS ORDERED: LORA0.5T83 PO (13:04)
[2023-06-05] MEDS ORDERED: FAMO20TA8 PO (13:04)
[2023-06-05] MEDS ORDERED: ATOR40TA69 PO (13:04)
[2023-06-05] MEDS ORDERED: ZINC220C6 PO (13:04)
[2023-06-05] MEDS ORDERED: ACET-2079 PO (13:38)
== END 2023-06-05 17:00 | disposition home or self-care (01) | DRG 853 ==
LOC: EDH 14:58 → EDHIP 17:14 → 4AH 19:42
PROVIDERS: ADMIT Internal Medicine; ATTEND Internal Medicine
PROC: 0JBR0ZZ Excision of Left Foot Subcutaneous Tissue and Fascia, Open Approach (ICD-10-PCS; principal; 2023-05-23 20:30)
PROC: B41D1ZZ Fluoroscopy of Aorta and Bilateral Lower Extremity Arteries using Low Osmolar Contrast (ICD-10-PCS; 2023-05-29)
DX: A41.9 Sepsis, unspecified organism (principal); A48.0 Gas gangrene; M72.6 Necrotizing fasciitis; E11.52 Type 2 diabetes mellitus with diabetic peripheral angiopathy with gangrene; E46 Unspecified protein-calorie malnutrition; E87.1 Hypo-osmolality and hyponatremia; L03.116 Cellulitis of left lower limb; L02.611 Cutaneous abscess of right foot; L02.612 Cutaneous abscess of left foot; L97.528 Non-pressure chronic ulcer of other part of left foot with other specified severity; E11.41 Type 2 diabetes mellitus with diabetic mononeuropathy; E11.65 Type 2 diabetes mellitus with hyperglycemia; E88.09 Other disorders of plasma-protein metabolism, not elsewhere classified; M10.9 Gout, unspecified; M79.89 Other specified soft tissue disorders; E11.621 Type 2 diabetes mellitus with foot ulcer; M79.5 Residual foreign body in soft tissue; E87.6 Hypokalemia; E66.9 Obesity, unspecified; F41.9 Anxiety disorder, unspecified; I10 Essential (primary) hypertension; I49.3 Ventricular premature depolarization; B95.61 Methicillin susceptible Staphylococcus aureus infection as the cause of diseases classified elsewhere; S91.342A Puncture wound with foreign body, left foot, initial encounter; W22.8XXA Striking against or struck by other objects, initial encounter; Z79.02 Long term (current) use of antithrombotics/antiplatelets; Z79.01 Long term (current) use of anticoagulants; Y93.89 Activity, other specified; Z86.711 Personal history of pulmonary embolism; Y92.89 Other specified places as the place of occurrence of the external cause; Y99.8 Other external cause status; Z86.718 Personal history of other venous thrombosis and embolism; Z91.199 Patient's noncompliance with other medical treatment and regimen due to unspecified reason; Z87.891 Personal history of nicotine dependence; Z68.38 Body mass index [BMI] 38.0-38.9, adult
CPT/HCPCS: 36246; 36247; 36415; 73630; 73718; 75635; 75716; 80048; 80053; 80202; 81001; 81241; 82306; 82550; 82948; 83036; 83605; 83735; 84132; 84145; 84443; 84550; 84630; 85025; 85027; 85210; 85302; 85303; 85305; 85306; 85378; 85610; 85730; 85732; 86140; 86147; 87040; 87070; 87076; 87077; 87186; 87205; 88300; 90715; 93005; 93925; 93970; 99156; 99157; C1760; C1894; G0378; J0360; J0690; J0692; J1170; J1644; J1650; J1815; J2060; J2250; J2270; J2405; J2543; J2704; J3010; J3370; J3475; J3480; J3490; Q9967; 3370; A4649; A6210; A6446; A9272; C1729; C1769; J0665

== ENCOUNTER → 2023-06-07 | Outpatient (CLI) | payer OTHER ==
[~2023-06-07] MED LIST changes: +ACET-2079 PO; +ATOR40TA69 PO; -CEPH500T PO; +CLOP-31 PO; -FAMO-136 PO; +FAMO20TA8 PO; -GLYB5TAB8 PO; +INSLAN SQ; +LIDOCAINE HCL 4% LTA SOL 4 ML VIAL TP ONE; +LORA0.5T83 PO; -ONDA22I PO; -ONDA4TAB10 PO; -PANT20TA18 PO; -PROM25TA7 PO; +ZINC220C6 PO; +[UNRECOGNIZED DRUG - OTHER] PO
== END | disposition home or self-care (01) ==
LOC: WHH 10:51
PROVIDERS: ATTEND Nurse Practitioner Family
DX: E11.621 Type 2 diabetes mellitus with foot ulcer (principal); L97.523 Non-pressure chronic ulcer of other part of left foot with necrosis of muscle; E11.40 Type 2 diabetes mellitus with diabetic neuropathy, unspecified; E11.52 Type 2 diabetes mellitus with diabetic peripheral angiopathy with gangrene; A48.0 Gas gangrene; E78.5 Hyperlipidemia, unspecified; E66.9 Obesity, unspecified; F41.9 Anxiety disorder, unspecified; Z87.891 Personal history of nicotine dependence; Z79.899 Other long term (current) drug therapy; Z86.718 Personal history of other venous thrombosis and embolism; Z68.35 Body mass index [BMI] 35.0-35.9, adult
CPT/HCPCS: 97606; A4450

== ENCOUNTER → 2023-06-11 | Outpatient (CLI) | payer OTHER ==
[~2023-06-11] MED LIST changes: -LIDOCAINE HCL 4% LTA SOL 4 ML VIAL TP ONE
== END | disposition home or self-care (01) ==
LOC: WHH 11:02
PROVIDERS: ATTEND Nurse Practitioner Family
DX: E11.621 Type 2 diabetes mellitus with foot ulcer (principal); L97.523 Non-pressure chronic ulcer of other part of left foot with necrosis of muscle; E11.40 Type 2 diabetes mellitus with diabetic neuropathy, unspecified; E11.52 Type 2 diabetes mellitus with diabetic peripheral angiopathy with gangrene; A48.0 Gas gangrene; E78.5 Hyperlipidemia, unspecified; E66.9 Obesity, unspecified; F41.9 Anxiety disorder, unspecified; Z68.35 Body mass index [BMI] 35.0-35.9, adult; Z79.84 Long term (current) use of oral hypoglycemic drugs; Z86.718 Personal history of other venous thrombosis and embolism; Z87.891 Personal history of nicotine dependence; Z79.899 Other long term (current) drug therapy
CPT/HCPCS: 97606; A4450

== ENCOUNTER → 2023-06-14 | Outpatient (CLI) | payer OTHER ==
[~2023-06-14] MED LIST changes: +AEC81 PO; +FLUO10CA21 PO; +FURO20TA4 PO; +HYDR-3421 PO; +LIDO1ADH71 TP; +RIVA20TA PO
== END | disposition home or self-care (01) ==
LOC: WHH 11:06
PROVIDERS: ATTEND Nurse Practitioner Family
DX: E11.621 Type 2 diabetes mellitus with foot ulcer (principal); L97.523 Non-pressure chronic ulcer of other part of left foot with necrosis of muscle; E11.40 Type 2 diabetes mellitus with diabetic neuropathy, unspecified; E11.52 Type 2 diabetes mellitus with diabetic peripheral angiopathy with gangrene; A48.0 Gas gangrene; E78.5 Hyperlipidemia, unspecified; E66.9 Obesity, unspecified; F41.9 Anxiety disorder, unspecified; Z87.891 Personal history of nicotine dependence; Z79.899 Other long term (current) drug therapy; Z86.718 Personal history of other venous thrombosis and embolism; Z68.35 Body mass index [BMI] 35.0-35.9, adult
CPT/HCPCS: 97606; A6248; A4450

== ENCOUNTER → 2023-06-18 | Outpatient (CLI) | payer OTHER ==
[~2023-06-18] MED LIST changes: -AEC81 PO; -FLUO10CA21 PO; -FURO20TA4 PO; -HYDR-3421 PO; -LIDO1ADH71 TP; -RIVA20TA PO
== END | disposition home or self-care (01) ==
LOC: WHH 11:08
PROVIDERS: ATTEND Nurse Practitioner Family
DX: E11.621 Type 2 diabetes mellitus with foot ulcer (principal); L97.523 Non-pressure chronic ulcer of other part of left foot with necrosis of muscle; E11.40 Type 2 diabetes mellitus with diabetic neuropathy, unspecified; E11.52 Type 2 diabetes mellitus with diabetic peripheral angiopathy with gangrene; A48.0 Gas gangrene; E78.00 Pure hypercholesterolemia, unspecified; E66.9 Obesity, unspecified; F41.9 Anxiety disorder, unspecified; Z68.35 Body mass index [BMI] 35.0-35.9, adult; Z86.718 Personal history of other venous thrombosis and embolism; Z79.84 Long term (current) use of oral hypoglycemic drugs; Z87.891 Personal history of nicotine dependence; Z79.899 Other long term (current) drug therapy
CPT/HCPCS: 97606

== ENCOUNTER → 2023-06-21 | Outpatient (CLI) | payer OTHER ==
[~2023-06-21] MED LIST changes: +LIDOCAINE HCL 4% LTA SOL 4 ML VIAL TP ONE
== END | disposition home or self-care (01) ==
LOC: WHH 11:12
PROVIDERS: ATTEND Nurse Practitioner Family
DX: E11.621 Type 2 diabetes mellitus with foot ulcer (principal); L97.523 Non-pressure chronic ulcer of other part of left foot with necrosis of muscle; E11.40 Type 2 diabetes mellitus with diabetic neuropathy, unspecified; E11.52 Type 2 diabetes mellitus with diabetic peripheral angiopathy with gangrene; A48.0 Gas gangrene; E78.5 Hyperlipidemia, unspecified; E66.9 Obesity, unspecified; F41.9 Anxiety disorder, unspecified; Z68.35 Body mass index [BMI] 35.0-35.9, adult; Z86.718 Personal history of other venous thrombosis and embolism; Z87.891 Personal history of nicotine dependence; Z79.899 Other long term (current) drug therapy
CPT/HCPCS: 97606

== ENCOUNTER → 2023-06-25 | Outpatient (CLI) | payer OTHER ==
[~2023-06-25] MED LIST changes: -LIDOCAINE HCL 4% LTA SOL 4 ML VIAL TP ONE
== END | disposition home or self-care (01) ==
LOC: WHH 11:06
PROVIDERS: ATTEND Nurse Practitioner Family
DX: E11.621 Type 2 diabetes mellitus with foot ulcer (principal); L97.523 Non-pressure chronic ulcer of other part of left foot with necrosis of muscle; E11.40 Type 2 diabetes mellitus with diabetic neuropathy, unspecified; E11.52 Type 2 diabetes mellitus with diabetic peripheral angiopathy with gangrene; A48.0 Gas gangrene; E78.00 Pure hypercholesterolemia, unspecified; E66.9 Obesity, unspecified; F41.9 Anxiety disorder, unspecified; Z68.35 Body mass index [BMI] 35.0-35.9, adult; Z87.891 Personal history of nicotine dependence; Z86.718 Personal history of other venous thrombosis and embolism; Z79.84 Long term (current) use of oral hypoglycemic drugs; Z79.4 Long term (current) use of insulin; Z79.899 Other long term (current) drug therapy
CPT/HCPCS: 97606

== ENCOUNTER → 2023-06-28 | Outpatient (CLI) | payer OTHER ==
[~2023-06-28] MED LIST changes: +LIDOCAINE HCL 4% LTA SOL 4 ML VIAL TP ONE
== END | disposition home or self-care (01) ==
LOC: WHH 10:38
PROVIDERS: ATTEND Family Medicine
DX: E11.621 Type 2 diabetes mellitus with foot ulcer (principal); L97.523 Non-pressure chronic ulcer of other part of left foot with necrosis of muscle; E11.40 Type 2 diabetes mellitus with diabetic neuropathy, unspecified; E11.52 Type 2 diabetes mellitus with diabetic peripheral angiopathy with gangrene; A48.0 Gas gangrene; E78.5 Hyperlipidemia, unspecified; E66.9 Obesity, unspecified; F41.9 Anxiety disorder, unspecified; Z68.35 Body mass index [BMI] 35.0-35.9, adult; Z86.718 Personal history of other venous thrombosis and embolism; Z87.891 Personal history of nicotine dependence; Z79.899 Other long term (current) drug therapy
CPT/HCPCS: 97606

== ENCOUNTER → 2023-07-02 | Outpatient (CLI) | payer OTHER ==
[~2023-07-02] MED LIST changes: -LIDOCAINE HCL 4% LTA SOL 4 ML VIAL TP ONE
== END | disposition home or self-care (01) ==
LOC: WHH 11:11
PROVIDERS: ATTEND Nurse Practitioner Family
DX: E11.621 Type 2 diabetes mellitus with foot ulcer (principal); L97.523 Non-pressure chronic ulcer of other part of left foot with necrosis of muscle; E11.40 Type 2 diabetes mellitus with diabetic neuropathy, unspecified; E11.52 Type 2 diabetes mellitus with diabetic peripheral angiopathy with gangrene; A48.0 Gas gangrene; E78.5 Hyperlipidemia, unspecified; E66.9 Obesity, unspecified; F41.9 Anxiety disorder, unspecified; Z68.35 Body mass index [BMI] 35.0-35.9, adult; Z86.718 Personal history of other venous thrombosis and embolism; Z87.891 Personal history of nicotine dependence; Z79.899 Other long term (current) drug therapy
CPT/HCPCS: 97606

== ENCOUNTER 2023-07-05 11:53 | Inpatient (IN) | payer OTHER ==
[~2023-07-05] VITALS: Ht 172.7 cm; Wt 126.6 kg
[2023-07-05 12:35] LABS: BASOPHILS # (AUTO) 0.03 K/uL (0.00-0.20); BASOPHILS % (AUTO) 0.4 % (0.0-5.0); EOSINOPHILS # (AUTO) 0.08 K/uL (0.00-0.70); HEMATOCRIT 33.8 % (42-54); IMMATURE GRANULOCYTE ABSOLUTE 0.03 K/uL (0-1); LYMPHOCYTES # (AUTO) 1.2 K/uL (1.0-4.8); LYMPHOCYTES % (AUTO) 14.8 % (21.0-51.0); MEAN CORPUSCULAR HEMOGLOBIN 28.1 pg (27.0-33.0); MEAN CORPUSCULAR VOLUME 87.8 fL (79-99); MONOCYTES # (AUTO) 0.4 K/uL (0.1-1.0); MONOCYTES % (AUTO) 5.4 % (3.0-13.0); NEUTROPHILS # (AUTO) 6.1 K/uL (1.8-7.7); PLATELET COUNT (AUTO) 201 K/uL (130-400); RED BLOOD CELL COUNT(AUTO) 3.85 MIL/uL (4.50-6.20); RED CELL DISTRIBUTION WIDTH 14.7 % (11.0-15.5); WHITE BLOOD COUNT (AUTO) 7.8 K/uL (4.8-10.8)
[2023-07-05 12:53] LABS: ALBUMIN 2.8 g/dL (3.5-5.0); BILIRUBIN,TOTAL 0.5 mg/dL (0.2-1.0); CREATININE 0.9 mg/dL (0.5-1.3); POTASSIUM 4.4 mmol/L (3.5-5.1); TOTAL PROTEIN, SERUM 7.1 g/dL (6.0-8.3)
[2023-07-05] MEDS: KETOROLAC 30MG VIAL (30MG/ML) IVP ONE (15:25)
[2023-07-05 15:38] LABS: ADD UA MICROSCOPIC YES; APPEARANCE,URINE CLEAR (CLEAR); BILIRUBIN,URINE NEGATIVE (NEGATIVE); COLOR,URINE YELLOW (YELLOW); GLUCOSE, URINE (UA) NEGATIVE (NEGATIVE); KETONES,URINE NEGATIVE (NEGATIVE); LEUKOCYTE ESTERASE ,URINE NEGATIVE Leu/uL (NEGATIVE); NITRATE,URINE NEGATIVE (NEGATIVE); OCCULT BLOOD,URINE SMALL (NEGATIVE); PH,URINE 5.5 (5.0-8.0); PROTEIN,URINE 200 mg/dL (NEGATIVE); UROBILINOGEN,URINE 0.2 mg/dL (0.2-1.0)
[2023-07-05 16:00] LABS: BACTERIA,URINE RARE /HPF (None Seen); MUCUS,URINE RARE LPF (None Seen); WBC,URINE 0-1 /HPF (0-1)
[2023-07-05] MEDS: CLINDAMYCIN IVPB 600MG/50ML 50 ML IV ONE (18:46)
[2023-07-05] MEDS ORDERED: GLUCAGON 1MG KIT 1 MG ML IM PRN (20:30)
[2023-07-05] MEDS ORDERED: DEXTROSE 50%-WATER 50 ML DISP.SYRIN IV PRN (20:30)
[2023-07-05] MEDS ORDERED: ONDANSETRON 4MG INJ IV PRN (20:30)
[2023-07-05] MEDS ORDERED: POTASSIUM CHLORIDE 20MEQ/100ML 100 ML IV PRN (20:30)
[2023-07-05] MEDS ORDERED: POTASSIUM CHLORIDE 10% ELIXIR 20 MEQ/15 ML UDCUP PO PRN (20:30)
[2023-07-05] MEDS ORDERED: CLINDAMYCIN IVPB 600MG/50ML 50 ML IV SCH (20:30)
[2023-07-05] MEDS: HYDROXYZINE 25 MG TABLET PO ONE (20:59)
[2023-07-05] MEDS: KETOROLAC 15MG/ML VIAL (15MG/ML) IV PRN (21:00)
[2023-07-05] MEDS: INSULIN HUMULIN R 100 UNIT/ML 3ML SQ SCH (21:00)
[2023-07-05] MEDS: FAMOTIDINE 20MG TAB PO SCH (22:17)
[2023-07-05] MEDS ORDERED: PHARMACY COMMUNICATION MISC SCH (22:30)
[2023-07-05 23:15] VITALS: BP 138/91; PULSE 93; RESP 18
[2023-07-06] VITALS (23 sets, daily range): BP systolic 115–163; BP diastolic 72–101; PULSE 89–104; RESP 15–20; O2SAT 93–96
[2023-07-06] MEDS: MORPHINE 2 MG SYG IVP PRN (00:42)
[2023-07-06 06:22] LABS: INR 1.03 (0.85-1.15); PROTHROMBIN TIME 12.1 SEC (9.6-11.6)
[2023-07-06 06:23] LABS: PARTIAL THROMBOPLASTIN TIME 29.9 SEC (26.3-35.5)
[2023-07-06 06:27] LABS: BASOPHILS # (AUTO) 0.04 K/uL (0.00-0.20); BASOPHILS % (AUTO) 0.7 % (0.0-5.0); EOSINOPHILS # (AUTO) 0.11 K/uL (0.00-0.70); HEMATOCRIT 32.1 % (42-54); IMMATURE GRANULOCYTE ABSOLUTE 0.02 K/uL (0-1); LYMPHOCYTES # (AUTO) 1.6 K/uL (1.0-4.8); LYMPHOCYTES % (AUTO) 29.3 % (21.0-51.0); MEAN CORPUSCULAR HEMOGLOBIN 28.1 pg (27.0-33.0); MEAN CORPUSCULAR HGB CONC 32.1 g/dL (32.0-36.0); MEAN CORPUSCULAR VOLUME 87.7 fL (79-99); MONOCYTES # (AUTO) 0.4 K/uL (0.1-1.0); MONOCYTES % (AUTO) 7.2 % (3.0-13.0); NEUTROPHILS # (AUTO) 3.4 K/uL (1.8-7.7); NEUTROPHILS % (AUTO) 60.4 % (40.0-77.0); PLATELET COUNT (AUTO) 180 K/uL (130-400); RED BLOOD CELL COUNT(AUTO) 3.66 MIL/uL (4.50-6.20); RED CELL DISTRIBUTION WIDTH 14.6 % (11.0-15.5); WHITE BLOOD COUNT (AUTO) 5.6 K/uL (4.8-10.8)
[2023-07-06 06:29] LABS: ALBUMIN 2.5 g/dL (3.5-5.0); BILIRUBIN,TOTAL 0.6 mg/dL (0.2-1.0); CREATININE 0.7 mg/dL (0.5-1.3); MAGNESIUM 1.6 mg/dL (1.80-2.40); POTASSIUM 3.6 mmol/L (3.5-5.1); TOTAL PROTEIN, SERUM 6.6 g/dL (6.0-8.3)
[2023-07-06] MEDS: MAGNESIUM 2GM PREMIX 50ML 50 ML IV PRN (08:26)
[2023-07-06] MEDS: KCL 20 MEQ ERTAB PO PRN (08:26)
[2023-07-06] MEDS: CLOPIDOGREL 75MG TAB PO SCH (09:00)
[2023-07-06] MEDS: ASPIRIN 81 MG EC TAB PO SCH (09:00)
[2023-07-06] MEDS: LORAZEPAM 0.5 MG TABLET PO PRN (10:29)
[2023-07-06] MEDS ORDERED: ONDANSETRON 4MG INJ ONE (16:32)
[2023-07-06] MEDS ORDERED: MIDAZOLAM HCL 1 MG/ML 2ML VIAL ONE ×2 (16:32→17:08)
[2023-07-06] MEDS ORDERED: PROPOFOL 10 MG/ML 20ML VIAL IV ONE ×2 (16:46→17:17)
[2023-07-06] MEDS ORDERED: LIDOCAINE HCL 1% 20 ML VIAL ONE (16:48)
[2023-07-06] MEDS ORDERED: BUPIVACAINE/PF 0.25% 30ML VIAL IJ ONE (16:49)
[2023-07-06] MEDS: LIDOCAINE HCL 1% 20 ML VIAL INJ ONE (16:55)
[2023-07-06] MEDS ORDERED: FENTANYL CITRATE PF 50 MCG/1 ML 2ML VIAL ONE ×2 (17:08→17:41)
[2023-07-06] MEDS: IPRATROPIUM/ALBUTEROL SULFATE 3 ML SOLUTION IH ONE (17:23)
[2023-07-06] MEDS ORDERED: FUROSEMIDE 40MG VIAL ONE (17:40)
[2023-07-06 18:18] LABS: ABG BASE EXCESS -0.4 mmol/L (-2.0-3.0); ABG HCO3 24.1 mmol/L (21.0-28.0); ABG OXYGEN SATURATION 93.9 % (95.0-99.0); ABG PCO2 39 mmHg (35-48); ABG PH 7.409 (7.35-7.450); CARBON MONOXIDE 0.2; HHb 6.1; PO2, ARTERIAL BG 72.9 mmHg (83.0-108.0); VENT MODE, BG RN E (ROOM AIR)
[2023-07-06] MEDS: METFORMIN HCL 500 MG TABLET PO SCH (20:28)
[2023-07-06] MEDS: APIXABAN 5 MG TABLET PO SCH (20:30)
[2023-07-06] MEDS: ATORVASTATIN 40 MG TABLET PO SCH (20:30)
[2023-07-06] MEDS: INSULIN GLARGINE 100 UNITS/ML 10 ML VIAL SQ SCH (20:35)
[2023-07-07] VITALS (7 sets, daily range): BP systolic 123–140; BP diastolic 75–93; PULSE 84–96; RESP 18–20; O2SAT 96–97
[2023-07-07] MEDS: ACETAMINOPHEN WITH CODEINE 1 TAB TAB PO PRN (02:25)
[2023-07-07 05:08] LABS: BASOPHILS # (AUTO) 0.05 K/uL (0.00-0.20); BASOPHILS % (AUTO) 0.6 % (0.0-5.0); EOSINOPHILS # (AUTO) 0.05 K/uL (0.00-0.70); EOSINOPHILS % (AUTO) 0.6 % (0.0-8.0); HEMATOCRIT 30.9 % (42-54); IMMATURE GRANULOCYTE ABSOLUTE 0.03 K/uL (0-1); LYMPHOCYTES # (AUTO) 1.2 K/uL (1.0-4.8); LYMPHOCYTES % (AUTO) 14.4 % (21.0-51.0); MEAN CORPUSCULAR HEMOGLOBIN 28.2 pg (27.0-33.0); MEAN CORPUSCULAR HGB CONC 32.4 g/dL (32.0-36.0); MONOCYTES # (AUTO) 0.6 K/uL (0.1-1.0); MONOCYTES % (AUTO) 7.1 % (3.0-13.0); NEUTROPHILS # (AUTO) 6.4 K/uL (1.8-7.7); NEUTROPHILS % (AUTO) 76.9 % (40.0-77.0); PLATELET COUNT (AUTO) 169 K/uL (130-400); RED BLOOD CELL COUNT(AUTO) 3.55 MIL/uL (4.50-6.20); RED CELL DISTRIBUTION WIDTH 14.6 % (11.0-15.5); WHITE BLOOD COUNT (AUTO) 8.4 K/uL (4.8-10.8)
[2023-07-07 05:19] LABS: CREATININE 0.9 mg/dL (0.5-1.3); POTASSIUM 3.8 mmol/L (3.5-5.1)
[2023-07-07] MEDS: CLINDAMYCIN IVPB 600MG/50ML 50 ML IV SCH (06:02)
[2023-07-07] MEDS: ZINC SULFATE 220 CAPSULE PO SCH (08:35)
[2023-07-07] MEDS: MORPHINE 4 MG SYG IVP PRN (11:48)
[2023-07-07] MEDS: ZOLPIDEM TARTRATE 5 MG TAB PO SCH (20:13)
[2023-07-08] VITALS (12 sets, daily range): BP systolic 118–152; BP diastolic 69–96; PULSE 85–104; RESP 18–22; O2SAT 94–98
[2023-07-08 05:33] LABS: HEMATOCRIT 34.3 % (42-54); MEAN CORPUSCULAR HEMOGLOBIN 28.1 pg (27.0-33.0); MEAN CORPUSCULAR HGB CONC 31.5 g/dL (32.0-36.0); MEAN CORPUSCULAR VOLUME 89.1 fL (79-99); RED BLOOD CELL COUNT(AUTO) 3.85 MIL/uL (4.50-6.20); RED CELL DISTRIBUTION WIDTH 14.4 % (11.0-15.5); WHITE BLOOD COUNT (AUTO) 5.9 K/uL (4.8-10.8)
[2023-07-08 05:50] LABS: ALBUMIN 2.6 g/dL (3.5-5.0); BILIRUBIN,TOTAL 0.5 mg/dL (0.2-1.0); CREATININE 0.8 mg/dL (0.5-1.3); POTASSIUM 3.9 mmol/L (3.5-5.1); TOTAL PROTEIN, SERUM 6.8 g/dL (6.0-8.3)
[2023-07-08] MEDS: FUROSEMIDE 20MG VIAL IV SCH (11:05)
[2023-07-08] MEDS: KCL 20 MEQ ERTAB PO ONE (11:05)
[2023-07-08] MEDS: IPRATROPIUM/ALBUTEROL SULFATE 3 ML SOLUTION IH PRN (11:34)
[2023-07-08] MEDS ORDERED: VANCOMYCIN PROTOCOL PER PHARMACY IV SCH (12:00)
[2023-07-08] MEDS: CEFEPIME HCL 1 GM VIAL IVPB SCH (12:44)
[2023-07-08] MEDS: VANCOMYCIN 1.75 GM/250 ML BAG 250 ML IV ONE (13:19)
[2023-07-08] MEDS: VANCOMYCIN 1G/250ML KIT 250 ML IV SCH (21:27)
[2023-07-09] VITALS (9 sets, daily range): BP systolic 128–149; BP diastolic 78–110; PULSE 90–98; RESP 18–21; O2SAT 94–96
[2023-07-09 05:22] LABS: HEMATOCRIT 31.8 % (42-54); MEAN CORPUSCULAR HEMOGLOBIN 27.7 pg (27.0-33.0); MEAN CORPUSCULAR HGB CONC 31.8 g/dL (32.0-36.0); MEAN CORPUSCULAR VOLUME 87.1 fL (79-99); RED BLOOD CELL COUNT(AUTO) 3.65 MIL/uL (4.50-6.20); RED CELL DISTRIBUTION WIDTH 14.5 % (11.0-15.5); WHITE BLOOD COUNT (AUTO) 5.9 K/uL (4.8-10.8)
[2023-07-09 06:03] LABS: ALBUMIN 2.6 g/dL (3.5-5.0); BILIRUBIN,TOTAL 0.7 mg/dL (0.2-1.0); CREATININE 0.8 mg/dL (0.5-1.3); MAGNESIUM 1.8 mg/dL (1.80-2.40); POTASSIUM 4.9 mmol/L (3.5-5.1); TOTAL PROTEIN, SERUM 6.7 g/dL (6.0-8.3)
[2023-07-09] MEDS: LORAZEPAM 0.5 MG TABLET PO PRN (16:11)
[2023-07-10] VITALS (9 sets, daily range): BP systolic 131–145; BP diastolic 77–92; PULSE 78–96; RESP 17–21; O2SAT 94–96
[2023-07-10] MEDS: LOPERAMIDE HCL 2 MG CAP PO ONE (04:04)
[2023-07-10] MEDS: VANCOMYCIN 750MG VIAL IVPB SCH (20:30)
[2023-07-10] MEDS ORDERED: TRAMADOL HCL 50 MG TABLET PO SCH (23:00)
[2023-07-10] MEDS: TRAMADOL HCL 50 MG TABLET PO PRN (23:07)
[2023-07-11] VITALS (9 sets, daily range): BP systolic 109–181; BP diastolic 70–89; PULSE 77–89; RESP 18–20; O2SAT 94–97
[2023-07-11 06:15] LABS: BASOPHILS # (AUTO) 0.07 K/uL (0.00-0.20); BASOPHILS % (AUTO) 1.1 % (0.0-5.0); EOSINOPHILS # (AUTO) 0.15 K/uL (0.00-0.70); EOSINOPHILS % (AUTO) 2.3 % (0.0-8.0); HEMATOCRIT 31.6 % (42-54); IMMATURE GRANULOCYTE ABSOLUTE 0.03 K/uL (0-1); LYMPHOCYTES # (AUTO) 1.8 K/uL (1.0-4.8); LYMPHOCYTES % (AUTO) 27.1 % (21.0-51.0); MEAN CORPUSCULAR VOLUME 87.5 fL (79-99); MONOCYTES # (AUTO) 0.5 K/uL (0.1-1.0); MONOCYTES % (AUTO) 6.8 % (3.0-13.0); NEUTROPHILS # (AUTO) 4.1 K/uL (1.8-7.7); NEUTROPHILS % (AUTO) 62.2 % (40.0-77.0); PLATELET COUNT (AUTO) 175 K/uL (130-400); RED BLOOD CELL COUNT(AUTO) 3.61 MIL/uL (4.50-6.20); RED CELL DISTRIBUTION WIDTH 14.5 % (11.0-15.5); WHITE BLOOD COUNT (AUTO) 6.6 K/uL (4.8-10.8)
[2023-07-11 06:22] LABS: CREATININE 0.8 mg/dL (0.5-1.3); MAGNESIUM 1.7 mg/dL (1.80-2.40); PHOSPHORUS 3.6 mg/dL (2.5-4.9); POTASSIUM 4.2 mmol/L (3.5-5.1)
[2023-07-11] MEDS: VANCOMYCIN 750MG VIAL IVPB SCH ×2 (11:00→18:39)
[2023-07-11] MEDS ORDERED: HYDROCODONE/ACETAMINOPHEN 5/325 MG TAB PO PRN (11:30)
[2023-07-11] MEDS: HYDROCODONE/ACETAMINOPHEN 10/325 MG TAB PO PRN (11:55)
[2023-07-11] MEDS: HYDROXYZINE 25 MG TABLET PO SCH (14:05)
[2023-07-11] MEDS: HYDROMORPHONE 0.5 MG SYG (0.5MG/0.5ML) IVP PRN (14:54)
[2023-07-11] MEDS ORDERED: ACETAMINOPHEN 325 MG TAB PO PRN (18:00)
[2023-07-11] MEDS: FLUOXETINE HCL 20 MG CAPSULE PO SCH (20:37)
[2023-07-11] MEDS: FLUOXETINE HCL 10 MG CAPSULE PO SCH (20:38)
[2023-07-12 03:16] VITALS: BP 105/73; PULSE 88; RESP 20
[2023-07-12 04:47] LABS: BASOPHILS # (AUTO) 0.06 K/uL (0.00-0.20); BASOPHILS % (AUTO) 0.8 % (0.0-5.0); EOSINOPHILS # (AUTO) 0.14 K/uL (0.00-0.70); EOSINOPHILS % (AUTO) 1.8 % (0.0-8.0); HEMATOCRIT 31.1 % (42-54); IMMATURE GRANULOCYTE ABSOLUTE 0.04 K/uL (0-1); LYMPHOCYTES # (AUTO) 1.4 K/uL (1.0-4.8); LYMPHOCYTES % (AUTO) 18.2 % (21.0-51.0); MEAN CORPUSCULAR HEMOGLOBIN 28.2 pg (27.0-33.0); MEAN CORPUSCULAR HGB CONC 31.8 g/dL (32.0-36.0); MEAN CORPUSCULAR VOLUME 88.6 fL (79-99); MONOCYTES # (AUTO) 0.6 K/uL (0.1-1.0); MONOCYTES % (AUTO) 7.8 % (3.0-13.0); NEUTROPHILS # (AUTO) 5.5 K/uL (1.8-7.7); NEUTROPHILS % (AUTO) 70.9 % (40.0-77.0); PLATELET COUNT (AUTO) 164 K/uL (130-400); RED BLOOD CELL COUNT(AUTO) 3.51 MIL/uL (4.50-6.20); RED CELL DISTRIBUTION WIDTH 14.4 % (11.0-15.5); WHITE BLOOD COUNT (AUTO) 7.7 K/uL (4.8-10.8)
[2023-07-12 05:06] LABS: MAGNESIUM 1.7 mg/dL (1.80-2.40); POTASSIUM 4.1 mmol/L (3.5-5.1)
[2023-07-12 07:25] VITALS: PULSE 88; RESP 18; O2SAT 95
[2023-07-12 08:00] VITALS: BP 131/87; PULSE 92; RESP 18
[2023-07-12 08:30] VITALS: O2SAT 97
[2023-07-12] MEDS: LIDOCAINE 4% ADH..PATCH TP SCH (08:49)
[2023-07-12 08:55] VITALS: O2SAT 97
[2023-07-12] MEDS ORDERED: FURO20TA4 PO (10:33)
[2023-07-12] MEDS ORDERED: FLUO10CA21 PO (10:33)
[2023-07-12] MEDS ORDERED: AEC81 PO (10:33)
[2023-07-12] MEDS ORDERED: LIDO1ADH71 TP (10:33)
[2023-07-12] MEDS ORDERED: HYDR-3421 PO (10:33)
[2023-07-12] MEDS ORDERED: RIVA20TA PO (10:36)
[2023-07-12 12:00] VITALS: BP 122/83; PULSE 90; RESP 18
== END 2023-07-12 16:50 | disposition home or self-care (01) | DRG 256 ==
LOC: EDH 11:53 → OBSVTOIN 11:54 → EDHIP 11:54 → 3AH 22:54
PROVIDERS: ADMIT Hospitalist; ATTEND Hospitalist
PROC: 0Y6U0Z0 Detachment at Left 3rd Toe, Complete, Open Approach (ICD-10-PCS; 2023-07-06)
PROC: 0Y6W0Z0 Detachment at Left 4th Toe, Complete, Open Approach (ICD-10-PCS; principal; 2023-07-06 16:45)
DX: E11.52 Type 2 diabetes mellitus with diabetic peripheral angiopathy with gangrene (principal); L02.612 Cutaneous abscess of left foot; L03.116 Cellulitis of left lower limb; L97.429 Non-pressure chronic ulcer of left heel and midfoot with unspecified severity; M86.672 Other chronic osteomyelitis, left ankle and foot; Z68.41 Body mass index [BMI] 40.0-44.9, adult; E11.42 Type 2 diabetes mellitus with diabetic polyneuropathy; E11.621 Type 2 diabetes mellitus with foot ulcer; I82.402 Acute embolism and thrombosis of unspecified deep veins of left lower extremity; D64.9 Anemia, unspecified; E11.622 Type 2 diabetes mellitus with other skin ulcer; E11.65 Type 2 diabetes mellitus with hyperglycemia; L97.529 Non-pressure chronic ulcer of other part of left foot with unspecified severity; E11.69 Type 2 diabetes mellitus with other specified complication; M77.30 Calcaneal spur, unspecified foot; E86.0 Dehydration; E66.9 Obesity, unspecified; B95.2 Enterococcus as the cause of diseases classified elsewhere; F41.9 Anxiety disorder, unspecified; K59.00 Constipation, unspecified; Z79.01 Long term (current) use of anticoagulants; Z82.49 Family history of ischemic heart disease and other diseases of the circulatory system; Z83.3 Family history of diabetes mellitus; Z86.711 Personal history of pulmonary embolism; Z86.718 Personal history of other venous thrombosis and embolism; Z89.432 Acquired absence of left foot; Z79.899 Other long term (current) drug therapy
CPT/HCPCS: 36415; 36600; 71045; 73630; 73718; 80048; 80053; 80202; 81001; 82435; 82803; 82947; 82948; 83605; 83735; 84100; 84132; 84295; 85018; 85025; 85027; 85610; 85730; 87040; 87070; 87076; 87077; 87186; 87205; 88305; 88311; 93970; 94640; 94664; 96375; G0378; J0692; J1170; J1815; J1885; J1940; J2250; J2270; J2405; J2704; J3010; J3370; J3475; J3490; J7030; A4649; A4930; A6210; A6446; A9272; J0665

== ENCOUNTER → 2023-07-05 | Outpatient (CLI) | payer OTHER | END | disposition home or self-care (01) | LOC: WHH 10:50 | PROVIDERS: ATTEND Nurse Practitioner Family | DX: E11.621 Type 2 diabetes mellitus with foot ulcer (principal); L97.523 Non-pressure chronic ulcer of other part of left foot with necrosis of muscle; E11.40 Type 2 diabetes mellitus with diabetic neuropathy, unspecified; E11.52 Type 2 diabetes mellitus with diabetic peripheral angiopathy with gangrene; A48.0 Gas gangrene; E78.5 Hyperlipidemia, unspecified; E66.9 Obesity, unspecified; F41.9 Anxiety disorder, unspecified; Z68.35 Body mass index [BMI] 35.0-35.9, adult; Z86.718 Personal history of other venous thrombosis and embolism; Z87.891 Personal history of nicotine dependence; Z79.899 Other long term (current) drug therapy | CPT/HCPCS: 99214 ==

== ENCOUNTER → 2023-07-16 | Outpatient (CLI) | payer OTHER ==
[~2023-07-16] MED LIST changes: +AEC81 PO; -APIX5TAB PO; +FLUO10CA21 PO; +FURO20TA4 PO; +HYDR-3421 PO; +LIDO1ADH71 TP; +RIVA20TA PO
== END | disposition home or self-care (01) ==
LOC: WHH 10:39
PROVIDERS: ATTEND Nurse Practitioner Family
DX: E11.621 Type 2 diabetes mellitus with foot ulcer (principal); L97.523 Non-pressure chronic ulcer of other part of left foot with necrosis of muscle; E11.40 Type 2 diabetes mellitus with diabetic neuropathy, unspecified; E11.52 Type 2 diabetes mellitus with diabetic peripheral angiopathy with gangrene; A48.0 Gas gangrene; E78.5 Hyperlipidemia, unspecified; E66.9 Obesity, unspecified; F41.9 Anxiety disorder, unspecified; Z68.35 Body mass index [BMI] 35.0-35.9, adult; Z86.718 Personal history of other venous thrombosis and embolism; Z87.891 Personal history of nicotine dependence; Z89.422 Acquired absence of other left toe(s); Z79.84 Long term (current) use of oral hypoglycemic drugs; Z79.899 Other long term (current) drug therapy
CPT/HCPCS: 97605; A6022; A4450

== ENCOUNTER → 2023-07-19 | Outpatient (CLI) | payer OTHER | END | disposition home or self-care (01) | LOC: WHH 10:33 | PROVIDERS: ATTEND Nurse Practitioner Family | DX: E11.621 Type 2 diabetes mellitus with foot ulcer (principal); L97.523 Non-pressure chronic ulcer of other part of left foot with necrosis of muscle; E11.40 Type 2 diabetes mellitus with diabetic neuropathy, unspecified; E11.52 Type 2 diabetes mellitus with diabetic peripheral angiopathy with gangrene; A48.0 Gas gangrene; E78.5 Hyperlipidemia, unspecified; E66.9 Obesity, unspecified; F41.9 Anxiety disorder, unspecified; Z68.35 Body mass index [BMI] 35.0-35.9, adult; Z86.718 Personal history of other venous thrombosis and embolism; Z87.891 Personal history of nicotine dependence; Z89.422 Acquired absence of other left toe(s); Z79.84 Long term (current) use of oral hypoglycemic drugs; Z79.899 Other long term (current) drug therapy | CPT/HCPCS: 97605; A6022 ==

== ENCOUNTER → 2023-07-23 | Outpatient (CLI) | payer OTHER | END | disposition home or self-care (01) | LOC: WHH 10:24 | PROVIDERS: ATTEND Nurse Practitioner Family | DX: E11.621 Type 2 diabetes mellitus with foot ulcer (principal); L97.523 Non-pressure chronic ulcer of other part of left foot with necrosis of muscle; E11.51 Type 2 diabetes mellitus with diabetic peripheral angiopathy without gangrene; E78.5 Hyperlipidemia, unspecified; E11.69 Type 2 diabetes mellitus with other specified complication; M86.672 Other chronic osteomyelitis, left ankle and foot; E11.42 Type 2 diabetes mellitus with diabetic polyneuropathy; E11.52 Type 2 diabetes mellitus with diabetic peripheral angiopathy with gangrene; A48.0 Gas gangrene; I10 Essential (primary) hypertension; E78.00 Pure hypercholesterolemia, unspecified; F41.9 Anxiety disorder, unspecified; E66.9 Obesity, unspecified; Z68.35 Body mass index [BMI] 35.0-35.9, adult; Z86.718 Personal history of other venous thrombosis and embolism; Z87.891 Personal history of nicotine dependence; Z89.422 Acquired absence of other left toe(s); Z79.84 Long term (current) use of oral hypoglycemic drugs; Z79.899 Other long term (current) drug therapy; Z86.711 Personal history of pulmonary embolism; Z79.4 Long term (current) use of insulin | CPT/HCPCS: 97605; A6022 ==

== ENCOUNTER → 2023-07-26 | Outpatient (CLI) | payer OTHER | END | disposition home or self-care (01) | LOC: WHH 10:46 | PROVIDERS: ATTEND Nurse Practitioner Family | DX: E11.621 Type 2 diabetes mellitus with foot ulcer (principal); L97.523 Non-pressure chronic ulcer of other part of left foot with necrosis of muscle; E11.40 Type 2 diabetes mellitus with diabetic neuropathy, unspecified; E11.52 Type 2 diabetes mellitus with diabetic peripheral angiopathy with gangrene; A48.0 Gas gangrene; E78.00 Pure hypercholesterolemia, unspecified; E66.9 Obesity, unspecified; F41.9 Anxiety disorder, unspecified; Z68.35 Body mass index [BMI] 35.0-35.9, adult; Z86.718 Personal history of other venous thrombosis and embolism; Z87.891 Personal history of nicotine dependence; Z89.422 Acquired absence of other left toe(s); Z79.84 Long term (current) use of oral hypoglycemic drugs; Z79.899 Other long term (current) drug therapy | CPT/HCPCS: 97605; A6022 ==

== ENCOUNTER → 2023-07-30 | Outpatient (CLI) | payer OTHER | END | disposition home or self-care (01) | LOC: WHH 11:08 | PROVIDERS: ATTEND Nurse Practitioner Family | DX: E11.621 Type 2 diabetes mellitus with foot ulcer (principal); L97.523 Non-pressure chronic ulcer of other part of left foot with necrosis of muscle; E11.42 Type 2 diabetes mellitus with diabetic polyneuropathy; E11.52 Type 2 diabetes mellitus with diabetic peripheral angiopathy with gangrene; A48.0 Gas gangrene; E78.00 Pure hypercholesterolemia, unspecified; E11.69 Type 2 diabetes mellitus with other specified complication; M86.672 Other chronic osteomyelitis, left ankle and foot; I10 Essential (primary) hypertension; M10.9 Gout, unspecified; F41.9 Anxiety disorder, unspecified; E66.9 Obesity, unspecified; Z68.35 Body mass index [BMI] 35.0-35.9, adult; Z86.718 Personal history of other venous thrombosis and embolism; Z87.891 Personal history of nicotine dependence; Z89.422 Acquired absence of other left toe(s); Z79.84 Long term (current) use of oral hypoglycemic drugs; Z79.899 Other long term (current) drug therapy; Z79.4 Long term (current) use of insulin; Z86.711 Personal history of pulmonary embolism | CPT/HCPCS: 97606; A6022 ==

== ENCOUNTER → 2023-08-02 | Outpatient (CLI) | payer OTHER | END | disposition home or self-care (01) | LOC: WHH 10:40 | PROVIDERS: ATTEND Nurse Practitioner Family | DX: E11.621 Type 2 diabetes mellitus with foot ulcer (principal); L97.523 Non-pressure chronic ulcer of other part of left foot with necrosis of muscle; E11.69 Type 2 diabetes mellitus with other specified complication; M86.672 Other chronic osteomyelitis, left ankle and foot; E11.42 Type 2 diabetes mellitus with diabetic polyneuropathy; E11.52 Type 2 diabetes mellitus with diabetic peripheral angiopathy with gangrene; A48.0 Gas gangrene; I10 Essential (primary) hypertension; E78.5 Hyperlipidemia, unspecified; E66.9 Obesity, unspecified; F41.9 Anxiety disorder, unspecified; Z68.35 Body mass index [BMI] 35.0-35.9, adult; Z86.718 Personal history of other venous thrombosis and embolism; Z87.891 Personal history of nicotine dependence; Z89.422 Acquired absence of other left toe(s); Z79.84 Long term (current) use of oral hypoglycemic drugs; Z79.899 Other long term (current) drug therapy; Z86.711 Personal history of pulmonary embolism; Z79.4 Long term (current) use of insulin | CPT/HCPCS: 97606; A6022 ==

== ENCOUNTER → 2023-08-07 | Outpatient (CLI) | payer OTHER | END | disposition home or self-care (01) | LOC: WHH 11:01 | PROVIDERS: ATTEND Nurse Practitioner Family | DX: E11.621 Type 2 diabetes mellitus with foot ulcer (principal); L97.523 Non-pressure chronic ulcer of other part of left foot with necrosis of muscle; E11.42 Type 2 diabetes mellitus with diabetic polyneuropathy; E11.52 Type 2 diabetes mellitus with diabetic peripheral angiopathy with gangrene; A48.0 Gas gangrene; E78.00 Pure hypercholesterolemia, unspecified; E11.69 Type 2 diabetes mellitus with other specified complication; M86.672 Other chronic osteomyelitis, left ankle and foot; I10 Essential (primary) hypertension; F41.9 Anxiety disorder, unspecified; E66.9 Obesity, unspecified; Z68.35 Body mass index [BMI] 35.0-35.9, adult; Z86.718 Personal history of other venous thrombosis and embolism; Z87.891 Personal history of nicotine dependence; Z89.422 Acquired absence of other left toe(s); Z86.711 Personal history of pulmonary embolism; Z79.84 Long term (current) use of oral hypoglycemic drugs; Z79.899 Other long term (current) drug therapy | CPT/HCPCS: 97605; A6022 ==

== ENCOUNTER → 2023-08-13 | Outpatient (CLI) | payer OTHER | END | disposition home or self-care (01) | LOC: WHH 10:55 | PROVIDERS: ATTEND Nurse Practitioner Family | DX: E11.621 Type 2 diabetes mellitus with foot ulcer (principal); L97.523 Non-pressure chronic ulcer of other part of left foot with necrosis of muscle; E11.51 Type 2 diabetes mellitus with diabetic peripheral angiopathy without gangrene; E11.69 Type 2 diabetes mellitus with other specified complication; M86.672 Other chronic osteomyelitis, left ankle and foot; E11.42 Type 2 diabetes mellitus with diabetic polyneuropathy; E11.52 Type 2 diabetes mellitus with diabetic peripheral angiopathy with gangrene; A48.0 Gas gangrene; I10 Essential (primary) hypertension; E78.5 Hyperlipidemia, unspecified; E78.00 Pure hypercholesterolemia, unspecified; E66.9 Obesity, unspecified; F41.9 Anxiety disorder, unspecified; Z68.35 Body mass index [BMI] 35.0-35.9, adult; Z86.718 Personal history of other venous thrombosis and embolism; Z87.891 Personal history of nicotine dependence; Z89.422 Acquired absence of other left toe(s); Z79.84 Long term (current) use of oral hypoglycemic drugs; Z79.899 Other long term (current) drug therapy; Z86.711 Personal history of pulmonary embolism; Z79.4 Long term (current) use of insulin | CPT/HCPCS: 97605; A6022; A4450 ==

== ENCOUNTER → 2023-08-16 | Outpatient (CLI) | payer OTHER ==
[~2023-08-16] MED LIST changes: +LIDOCAINE HCL 4% LTA SOL 4 ML VIAL TP ONE
== END | disposition home or self-care (01) ==
LOC: WHH 10:39
PROVIDERS: ATTEND Nurse Practitioner Family
DX: E11.621 Type 2 diabetes mellitus with foot ulcer (principal); L97.523 Non-pressure chronic ulcer of other part of left foot with necrosis of muscle; E11.42 Type 2 diabetes mellitus with diabetic polyneuropathy; E11.52 Type 2 diabetes mellitus with diabetic peripheral angiopathy with gangrene; A48.0 Gas gangrene; E11.69 Type 2 diabetes mellitus with other specified complication; M86.672 Other chronic osteomyelitis, left ankle and foot; I10 Essential (primary) hypertension; E78.00 Pure hypercholesterolemia, unspecified; F41.9 Anxiety disorder, unspecified; E66.9 Obesity, unspecified; Z68.35 Body mass index [BMI] 35.0-35.9, adult; Z86.718 Personal history of other venous thrombosis and embolism; Z87.891 Personal history of nicotine dependence; Z89.422 Acquired absence of other left toe(s); Z86.711 Personal history of pulmonary embolism; Z79.84 Long term (current) use of oral hypoglycemic drugs; Z79.899 Other long term (current) drug therapy
CPT/HCPCS: 97605; A6022

== ENCOUNTER → 2023-08-21 | Outpatient (CLI) | payer OTHER ==
[~2023-08-21] MED LIST changes: -LIDOCAINE HCL 4% LTA SOL 4 ML VIAL TP ONE
== END | disposition home or self-care (01) ==
LOC: WHH 10:05
PROVIDERS: ATTEND Nurse Practitioner Family
DX: E11.621 Type 2 diabetes mellitus with foot ulcer (principal); L97.523 Non-pressure chronic ulcer of other part of left foot with necrosis of muscle; E11.42 Type 2 diabetes mellitus with diabetic polyneuropathy; E11.52 Type 2 diabetes mellitus with diabetic peripheral angiopathy with gangrene; A48.0 Gas gangrene; E78.00 Pure hypercholesterolemia, unspecified; E11.69 Type 2 diabetes mellitus with other specified complication; M86.672 Other chronic osteomyelitis, left ankle and foot; I10 Essential (primary) hypertension; F41.9 Anxiety disorder, unspecified; E66.9 Obesity, unspecified; Z68.35 Body mass index [BMI] 35.0-35.9, adult; Z86.718 Personal history of other venous thrombosis and embolism; Z87.891 Personal history of nicotine dependence; Z89.422 Acquired absence of other left toe(s); Z86.711 Personal history of pulmonary embolism; Z79.84 Long term (current) use of oral hypoglycemic drugs; Z79.899 Other long term (current) drug therapy
CPT/HCPCS: 97605; A6022

== ENCOUNTER → 2023-08-23 | Outpatient (CLI) | payer OTHER ==
[~2023-08-23] MED LIST changes: +LIDOCAINE HCL 4% LTA SOL 4 ML VIAL TP ONE
== END | disposition home or self-care (01) ==
LOC: WHH 10:31
PROVIDERS: ATTEND Nurse Practitioner Family
DX: E11.621 Type 2 diabetes mellitus with foot ulcer (principal); L97.523 Non-pressure chronic ulcer of other part of left foot with necrosis of muscle; E11.42 Type 2 diabetes mellitus with diabetic polyneuropathy; E11.52 Type 2 diabetes mellitus with diabetic peripheral angiopathy with gangrene; A48.0 Gas gangrene; E11.69 Type 2 diabetes mellitus with other specified complication; M86.672 Other chronic osteomyelitis, left ankle and foot; I10 Essential (primary) hypertension; E78.00 Pure hypercholesterolemia, unspecified; F41.9 Anxiety disorder, unspecified; E66.9 Obesity, unspecified; Z68.35 Body mass index [BMI] 35.0-35.9, adult; Z86.718 Personal history of other venous thrombosis and embolism; Z87.891 Personal history of nicotine dependence; Z89.422 Acquired absence of other left toe(s); Z86.711 Personal history of pulmonary embolism; Z79.84 Long term (current) use of oral hypoglycemic drugs; Z79.899 Other long term (current) drug therapy
CPT/HCPCS: 99214; A6022; A6197

== ENCOUNTER → 2023-08-27 | Outpatient (CLI) | payer OTHER ==
[~2023-08-27] MED LIST changes: -LIDOCAINE HCL 4% LTA SOL 4 ML VIAL TP ONE
== END | disposition home or self-care (01) ==
LOC: WHH 10:53
PROVIDERS: ATTEND Nurse Practitioner Family
DX: E11.621 Type 2 diabetes mellitus with foot ulcer (principal); L97.523 Non-pressure chronic ulcer of other part of left foot with necrosis of muscle; E11.42 Type 2 diabetes mellitus with diabetic polyneuropathy; E11.52 Type 2 diabetes mellitus with diabetic peripheral angiopathy with gangrene; A48.0 Gas gangrene; E11.69 Type 2 diabetes mellitus with other specified complication; M86.672 Other chronic osteomyelitis, left ankle and foot; I10 Essential (primary) hypertension; E78.00 Pure hypercholesterolemia, unspecified; F41.9 Anxiety disorder, unspecified; E66.9 Obesity, unspecified; Z68.35 Body mass index [BMI] 35.0-35.9, adult; Z86.718 Personal history of other venous thrombosis and embolism; Z87.891 Personal history of nicotine dependence; Z89.422 Acquired absence of other left toe(s); Z86.711 Personal history of pulmonary embolism; Z79.84 Long term (current) use of oral hypoglycemic drugs; Z79.899 Other long term (current) drug therapy
CPT/HCPCS: 99211; A6021; A6197; 99201; G0463

== ENCOUNTER → 2023-08-30 | Outpatient (CLI) | payer OTHER ==
[~2023-08-30] MED LIST changes: +LIDOCAINE HCL 4% LTA SOL 4 ML VIAL TP ONE
== END | disposition home or self-care (01) ==
LOC: WHH 10:42
PROVIDERS: ATTEND Nurse Practitioner Family
DX: E11.621 Type 2 diabetes mellitus with foot ulcer (principal); L97.523 Non-pressure chronic ulcer of other part of left foot with necrosis of muscle; E11.42 Type 2 diabetes mellitus with diabetic polyneuropathy; E11.52 Type 2 diabetes mellitus with diabetic peripheral angiopathy with gangrene; A48.0 Gas gangrene; E11.69 Type 2 diabetes mellitus with other specified complication; M86.672 Other chronic osteomyelitis, left ankle and foot; I10 Essential (primary) hypertension; E78.00 Pure hypercholesterolemia, unspecified; M10.9 Gout, unspecified; F41.9 Anxiety disorder, unspecified; E66.9 Obesity, unspecified; Z68.35 Body mass index [BMI] 35.0-35.9, adult; Z86.718 Personal history of other venous thrombosis and embolism; Z87.891 Personal history of nicotine dependence; Z89.422 Acquired absence of other left toe(s); Z86.711 Personal history of pulmonary embolism; Z79.84 Long term (current) use of oral hypoglycemic drugs; Z79.899 Other long term (current) drug therapy
CPT/HCPCS: 87070; 87077; 87086; 87186 ×2; 99214; A6022; A6196; A6197

== ENCOUNTER → 2023-09-06 | Outpatient (CLI) | payer OTHER ==
[~2023-09-06] MED LIST changes: -LIDOCAINE HCL 4% LTA SOL 4 ML VIAL TP ONE
== END | disposition home or self-care (01) ==
LOC: WHH 10:55
PROVIDERS: ATTEND Nurse Practitioner Family
DX: E11.621 Type 2 diabetes mellitus with foot ulcer (principal); L97.523 Non-pressure chronic ulcer of other part of left foot with necrosis of muscle; S80.812A Abrasion, left lower leg, initial encounter; E11.42 Type 2 diabetes mellitus with diabetic polyneuropathy; A48.0 Gas gangrene; E11.52 Type 2 diabetes mellitus with diabetic peripheral angiopathy with gangrene; E11.69 Type 2 diabetes mellitus with other specified complication; M86.672 Other chronic osteomyelitis, left ankle and foot; I10 Essential (primary) hypertension; E78.00 Pure hypercholesterolemia, unspecified; M10.9 Gout, unspecified; F41.9 Anxiety disorder, unspecified; E66.9 Obesity, unspecified; Z68.35 Body mass index [BMI] 35.0-35.9, adult; Z86.718 Personal history of other venous thrombosis and embolism; Z87.891 Personal history of nicotine dependence; Z89.422 Acquired absence of other left toe(s); Z86.711 Personal history of pulmonary embolism; Z79.84 Long term (current) use of oral hypoglycemic drugs; Z79.899 Other long term (current) drug therapy; X58.XXXA Exposure to other specified factors, initial encounter; Y93.89 Activity, other specified; Y92.89 Other specified places as the place of occurrence of the external cause; Y99.8 Other external cause status
CPT/HCPCS: 99214; A6212; A6022; A6196; A6197

== ENCOUNTER → 2023-09-11 | Outpatient (CLI) | payer OTHER | END | disposition home or self-care (01) | LOC: WHH 10:59 | PROVIDERS: ATTEND Nurse Practitioner Family | DX: E11.621 Type 2 diabetes mellitus with foot ulcer (principal); L97.523 Non-pressure chronic ulcer of other part of left foot with necrosis of muscle; S80.812D Abrasion, left lower leg, subsequent encounter; E11.42 Type 2 diabetes mellitus with diabetic polyneuropathy; A48.0 Gas gangrene; E11.52 Type 2 diabetes mellitus with diabetic peripheral angiopathy with gangrene; E11.69 Type 2 diabetes mellitus with other specified complication; M86.672 Other chronic osteomyelitis, left ankle and foot; I10 Essential (primary) hypertension; E78.00 Pure hypercholesterolemia, unspecified; M10.9 Gout, unspecified; F41.9 Anxiety disorder, unspecified; E66.9 Obesity, unspecified; Z68.35 Body mass index [BMI] 35.0-35.9, adult; Z86.718 Personal history of other venous thrombosis and embolism; Z87.891 Personal history of nicotine dependence; Z89.422 Acquired absence of other left toe(s); Z86.711 Personal history of pulmonary embolism; Z79.84 Long term (current) use of oral hypoglycemic drugs; Z79.899 Other long term (current) drug therapy; X58.XXXD Exposure to other specified factors, subsequent encounter | CPT/HCPCS: 99214; A6022; A6196; A6197; A4450 ==

== ENCOUNTER → 2023-09-20 | Outpatient (CLI) | payer OTHER ==
[~2023-09-20] MED LIST changes: +LIDOCAINE HCL 4% LTA SOL 4 ML VIAL TP ONE
== END | disposition home or self-care (01) ==
LOC: WHH 11:17
PROVIDERS: ATTEND Nurse Practitioner Family
DX: E11.621 Type 2 diabetes mellitus with foot ulcer (principal); L97.523 Non-pressure chronic ulcer of other part of left foot with necrosis of muscle; E11.42 Type 2 diabetes mellitus with diabetic polyneuropathy; E11.52 Type 2 diabetes mellitus with diabetic peripheral angiopathy with gangrene; A48.0 Gas gangrene; E11.69 Type 2 diabetes mellitus with other specified complication; M86.672 Other chronic osteomyelitis, left ankle and foot; I10 Essential (primary) hypertension; E78.00 Pure hypercholesterolemia, unspecified; M10.9 Gout, unspecified; E66.9 Obesity, unspecified; F41.9 Anxiety disorder, unspecified; Z68.35 Body mass index [BMI] 35.0-35.9, adult; Z86.718 Personal history of other venous thrombosis and embolism; Z87.891 Personal history of nicotine dependence; Z89.422 Acquired absence of other left toe(s); Z86.711 Personal history of pulmonary embolism; Z79.84 Long term (current) use of oral hypoglycemic drugs; Z79.899 Other long term (current) drug therapy
CPT/HCPCS: 99214; A6022; A6196; A6197

== ENCOUNTER → 2023-09-27 | Outpatient (CLI) | payer OTHER | END | disposition home or self-care (01) | LOC: WHH 11:08 | PROVIDERS: ATTEND Nurse Practitioner Family | DX: E11.621 Type 2 diabetes mellitus with foot ulcer (principal); L97.523 Non-pressure chronic ulcer of other part of left foot with necrosis of muscle; E11.42 Type 2 diabetes mellitus with diabetic polyneuropathy; E11.52 Type 2 diabetes mellitus with diabetic peripheral angiopathy with gangrene; A48.0 Gas gangrene; E11.69 Type 2 diabetes mellitus with other specified complication; M86.672 Other chronic osteomyelitis, left ankle and foot; I10 Essential (primary) hypertension; E78.00 Pure hypercholesterolemia, unspecified; M10.9 Gout, unspecified; E66.9 Obesity, unspecified; F41.9 Anxiety disorder, unspecified; Z68.35 Body mass index [BMI] 35.0-35.9, adult; Z86.718 Personal history of other venous thrombosis and embolism; Z87.891 Personal history of nicotine dependence; Z89.422 Acquired absence of other left toe(s); Z86.711 Personal history of pulmonary embolism; Z79.84 Long term (current) use of oral hypoglycemic drugs; Z79.899 Other long term (current) drug therapy | CPT/HCPCS: 99214; A6022; A6197 ×2 ==

== ENCOUNTER → 2023-10-11 | Outpatient (CLI) | payer OTHER ==
[~2023-10-11] MED LIST changes: -LIDOCAINE HCL 4% LTA SOL 4 ML VIAL TP ONE
== END | disposition home or self-care (01) ==
LOC: WHH 10:58
PROVIDERS: ATTEND Family Medicine
DX: E11.621 Type 2 diabetes mellitus with foot ulcer (principal); L97.523 Non-pressure chronic ulcer of other part of left foot with necrosis of muscle; E11.42 Type 2 diabetes mellitus with diabetic polyneuropathy; E11.52 Type 2 diabetes mellitus with diabetic peripheral angiopathy with gangrene; A48.0 Gas gangrene; E11.69 Type 2 diabetes mellitus with other specified complication; M86.672 Other chronic osteomyelitis, left ankle and foot; I10 Essential (primary) hypertension; E78.00 Pure hypercholesterolemia, unspecified; E66.9 Obesity, unspecified; M10.9 Gout, unspecified; F41.9 Anxiety disorder, unspecified; Z68.35 Body mass index [BMI] 35.0-35.9, adult; Z86.718 Personal history of other venous thrombosis and embolism; Z87.891 Personal history of nicotine dependence; Z89.422 Acquired absence of other left toe(s); Z86.711 Personal history of pulmonary embolism; Z79.84 Long term (current) use of oral hypoglycemic drugs; Z79.899 Other long term (current) drug therapy
CPT/HCPCS: 99214; A6022; A6197; A6196; A4450

== ENCOUNTER → 2023-10-18 | Outpatient (CLI) | payer SELFPAY | END | disposition home or self-care (01) | LOC: WHH 10:51 | PROVIDERS: ATTEND Family Medicine | DX: E11.621 Type 2 diabetes mellitus with foot ulcer (principal); L97.523 Non-pressure chronic ulcer of other part of left foot with necrosis of muscle; E11.42 Type 2 diabetes mellitus with diabetic polyneuropathy; E11.52 Type 2 diabetes mellitus with diabetic peripheral angiopathy with gangrene; A48.0 Gas gangrene; E11.69 Type 2 diabetes mellitus with other specified complication; M86.672 Other chronic osteomyelitis, left ankle and foot; I10 Essential (primary) hypertension; E78.00 Pure hypercholesterolemia, unspecified; M10.9 Gout, unspecified; E66.9 Obesity, unspecified; F41.9 Anxiety disorder, unspecified; Z68.35 Body mass index [BMI] 35.0-35.9, adult; Z86.718 Personal history of other venous thrombosis and embolism; Z87.891 Personal history of nicotine dependence; Z89.422 Acquired absence of other left toe(s); Z86.711 Personal history of pulmonary embolism; Z79.84 Long term (current) use of oral hypoglycemic drugs; Z79.899 Other long term (current) drug therapy | CPT/HCPCS: 99214; A6022; A6196 ==

== ENCOUNTER → 2023-10-25 | Outpatient (CLI) | payer SELFPAY | END | disposition home or self-care (01) | LOC: WHH 10:49 | PROVIDERS: ATTEND Family Medicine | DX: E11.621 Type 2 diabetes mellitus with foot ulcer (principal); L97.523 Non-pressure chronic ulcer of other part of left foot with necrosis of muscle; E11.42 Type 2 diabetes mellitus with diabetic polyneuropathy; E11.52 Type 2 diabetes mellitus with diabetic peripheral angiopathy with gangrene; A48.0 Gas gangrene; E11.69 Type 2 diabetes mellitus with other specified complication; M86.672 Other chronic osteomyelitis, left ankle and foot; I10 Essential (primary) hypertension; E78.00 Pure hypercholesterolemia, unspecified; E66.9 Obesity, unspecified; M10.9 Gout, unspecified; F41.9 Anxiety disorder, unspecified; Z68.35 Body mass index [BMI] 35.0-35.9, adult; Z86.718 Personal history of other venous thrombosis and embolism; Z87.891 Personal history of nicotine dependence; Z89.422 Acquired absence of other left toe(s); Z86.711 Personal history of pulmonary embolism; Z79.84 Long term (current) use of oral hypoglycemic drugs; Z79.899 Other long term (current) drug therapy | CPT/HCPCS: 99211; A6022; A6196; G0463 ==

== ENCOUNTER → 2023-11-01 | Outpatient (CLI) | payer SELFPAY | END | disposition home or self-care (01) | LOC: WHH 11:07 | PROVIDERS: ATTEND Family Medicine | DX: E11.621 Type 2 diabetes mellitus with foot ulcer (principal); L97.523 Non-pressure chronic ulcer of other part of left foot with necrosis of muscle; E11.42 Type 2 diabetes mellitus with diabetic polyneuropathy; E11.52 Type 2 diabetes mellitus with diabetic peripheral angiopathy with gangrene; A48.0 Gas gangrene; E11.69 Type 2 diabetes mellitus with other specified complication; M86.672 Other chronic osteomyelitis, left ankle and foot; I10 Essential (primary) hypertension; E78.00 Pure hypercholesterolemia, unspecified; E66.9 Obesity, unspecified; M10.9 Gout, unspecified; F41.9 Anxiety disorder, unspecified; Z68.35 Body mass index [BMI] 35.0-35.9, adult; Z86.718 Personal history of other venous thrombosis and embolism; Z87.891 Personal history of nicotine dependence; Z89.422 Acquired absence of other left toe(s); Z86.711 Personal history of pulmonary embolism; Z79.84 Long term (current) use of oral hypoglycemic drugs; Z79.899 Other long term (current) drug therapy | CPT/HCPCS: 99214; A6022 ==

== ENCOUNTER → 2023-11-08 | Outpatient (CLI) | payer SELFPAY | END | disposition home or self-care (01) | LOC: WHH 09:58 | PROVIDERS: ATTEND Family Medicine | DX: E11.621 Type 2 diabetes mellitus with foot ulcer (principal); L97.523 Non-pressure chronic ulcer of other part of left foot with necrosis of muscle; E11.42 Type 2 diabetes mellitus with diabetic polyneuropathy; E11.52 Type 2 diabetes mellitus with diabetic peripheral angiopathy with gangrene; A48.0 Gas gangrene; E11.69 Type 2 diabetes mellitus with other specified complication; M86.672 Other chronic osteomyelitis, left ankle and foot; I10 Essential (primary) hypertension; E78.00 Pure hypercholesterolemia, unspecified; E66.9 Obesity, unspecified; M10.9 Gout, unspecified; F41.9 Anxiety disorder, unspecified; Z68.35 Body mass index [BMI] 35.0-35.9, adult; Z86.718 Personal history of other venous thrombosis and embolism; Z87.891 Personal history of nicotine dependence; Z89.422 Acquired absence of other left toe(s); Z86.711 Personal history of pulmonary embolism; Z79.84 Long term (current) use of oral hypoglycemic drugs; Z79.899 Other long term (current) drug therapy | CPT/HCPCS: 99214; A6209 ==

== ENCOUNTER → 2023-11-22 | Outpatient (CLI) | payer SELFPAY | END | disposition home or self-care (01) | LOC: WHH 10:01 | PROVIDERS: ATTEND Family Medicine | DX: E11.621 Type 2 diabetes mellitus with foot ulcer (principal); L97.523 Non-pressure chronic ulcer of other part of left foot with necrosis of muscle; E11.42 Type 2 diabetes mellitus with diabetic polyneuropathy; E11.52 Type 2 diabetes mellitus with diabetic peripheral angiopathy with gangrene; A48.0 Gas gangrene; E11.69 Type 2 diabetes mellitus with other specified complication; M86.672 Other chronic osteomyelitis, left ankle and foot; I10 Essential (primary) hypertension; E78.00 Pure hypercholesterolemia, unspecified; E66.9 Obesity, unspecified; M10.9 Gout, unspecified; F41.9 Anxiety disorder, unspecified; Z68.35 Body mass index [BMI] 35.0-35.9, adult; Z86.718 Personal history of other venous thrombosis and embolism; Z87.891 Personal history of nicotine dependence; Z86.711 Personal history of pulmonary embolism; Z79.84 Long term (current) use of oral hypoglycemic drugs; Z79.899 Other long term (current) drug therapy | CPT/HCPCS: 11042; A6209 ==

== ENCOUNTER → 2023-12-06 | Outpatient (CLI) | payer SELFPAY | END | disposition home or self-care (01) | LOC: WHH 09:57 | PROVIDERS: ATTEND Family Medicine | DX: E11.621 Type 2 diabetes mellitus with foot ulcer (principal); L97.523 Non-pressure chronic ulcer of other part of left foot with necrosis of muscle; E11.42 Type 2 diabetes mellitus with diabetic polyneuropathy; E11.52 Type 2 diabetes mellitus with diabetic peripheral angiopathy with gangrene; A48.0 Gas gangrene; E11.69 Type 2 diabetes mellitus with other specified complication; M86.672 Other chronic osteomyelitis, left ankle and foot; I10 Essential (primary) hypertension; E78.00 Pure hypercholesterolemia, unspecified; E66.9 Obesity, unspecified; M10.9 Gout, unspecified; F41.9 Anxiety disorder, unspecified; Z68.35 Body mass index [BMI] 35.0-35.9, adult; Z86.718 Personal history of other venous thrombosis and embolism; Z86.711 Personal history of pulmonary embolism; Z79.84 Long term (current) use of oral hypoglycemic drugs; Z79.899 Other long term (current) drug therapy | CPT/HCPCS: 99214; A6209 ×2 ==

== ENCOUNTER 2024-01-29 09:22 | Emergency (ER) | payer SELFPAY ==
[~2024-01-29] VITALS: Ht 175.3 cm; Wt 104.3 kg
[2024-01-29 09:23] VITALS: TEMP 98.8
--- NOTE | 2024-01-29 09:31 | ERN ---
General Chief Complaint: Abdominal Pain Stated Complaint: N/V/D/, RUQ PAIN Time Seen by MD: 09:23 Source: patient, family History of Present Illness Initial Comments Patient is a 63-year-old male coming in to be evaluated for upper abdominal discomfort. Patient states that the upper abdominal discomfort has been ongoing for two months. Long with the discomfort patient states that she he has been having diarrhea and nauseousness for the past couple of days. No fever no chills. Allergies: Coded Allergies: No Known Allergies (Verified Allergy, Unknown, 11/11/18) Home Meds Active Scripts Rivaroxaban (Xarelto) 20 Mg Tablet, 20 MG PO DAILY, #30 TAB 1 Refill Prov:MARTINA PEÑA MD 07/12/23 Lidocaine (Lidocaine Pain Relief) 4 % Adh..patch, 1 EACH TP DAILY, #30 ADH.PATCH 0 Refills Prov:MARTINA PEÑA MD 07/12/23 Hydroxyzine HCl (Hydroxyzine HCl) 25 Mg Tablet, 50 MG PO TID, #90 TAB 0 Refills Prov:MARTINA PEÑA MD 07/12/23 Furosemide (Furosemide) 20 Mg Tablet, 20 MG PO DAILY, #30 TAB Prov:MARTINA PEÑA MD 07/12/23 Fluoxetine HCl (Prozac) 10 Mg Capsule, 30 MG PO HS, #90 CAP 1 Refill Prov:MARTINA PEÑA MD 07/12/23 Aspirin (ASPIRIN 81 MG ECTAB) 81 Mg Ectab, 81 MG PO DAILY, #30 TAB.EC 0 Refills Prov:MARTINA PEÑA MD 07/12/23 Acetaminophen with Codeine (Acetaminophen-Cod #3 Tablet) 300 Mg-30 Mg Tablet, 1 EACH PO q6hr for pain, #30 TAB 0 Refills Prov:FEROZ PHOENIX MD 06/05/23 Lorazepam (Ativan) 0.5 Mg Tablet, 0.25 MG PO TIDP PRN for ANXIETY/AGITATION for 7 Days, #20 TAB Prov:PUNEET CORNELIUS 06/05/23 Zinc Sulfate (Zinc Sulfate 220 Cap) 50 Mg Zinc (220 Mg) Capsule, 220 MG PO DAILY, #30 CAP Prov:PUNEET CORNELIUS 06/05/23 Insulin Glargine,Hum.rec.anlog (Lantus) 100 Unit/Ml Inj, 10 UNITS SQ HS, #10 ML 2 Refills Prov:PUNEET CORNELIUS INA 06/05/23 Famotidine (Famotidine) 20 Mg Tablet, 20 MG PO DAILY, #90 TAB Prov:PUNEET CORNELIUS INA 06/05/23 Clopidogrel Bisulfate (Plavix) 75 Mg Tablet, 75 MG PO DAILY, #90 TAB Prov:PUNEET CORNELIUS INA 06/05/23 Atorvastatin Calcium (LIPITOR) 40 Mg Tablet, 40 MG PO HS, #90 TAB Prov:PUNEET CORNELIUS INA 06/05/23 Reported Medications [albos] No Conflict Check, 1 CAP PO DAILY PRN for INDIGESTION 05/23/23 Metformin HCl (Metformin HCl) 1,000 Mg Tablet, 1000 MG PO BID, TAB 10/06/20 Past Medical History Past Medical History: Diabetes-Type II, DVT Medical History Other: PULMONARY EMBOLISM, MRSA Past Surgical History: Other Surgical History Other: PILONITAL CYST REMOVAL, TOE APUTATION Social History Social History: Negative ROS Dictation CONSTITUTIONAL: No chills, no fever, no weakness, no diaphoresis, no malaise. HEAD/FACE: No signs of trauma. EENT: No eye pain, no blurred vision, no tearing, no double vision, no ear pain, no ear discharge, no nose pain, no nasal congestion, no throat pain, no throat swelling, no mouth pain. RESPIRATORY: No cough, no orthopnea, no SOB, no stridor, no wheezing. CARDIOVASCULAR: No chest pain, no edema, no palpitations, no syncope. GASTROINTESTINAL/ABDOMINAL: abdominal pain, no constipation, diarrhea, nausea, no vomiting. GENITOURINARY: No abnormal discharge, no dysuria, no frequent urination, no hematuria. No complaints of pain in the genitals. MUSCULOSKELETAL: No back pain, no gout, no joint pain, no joint swelling, no muscle pain, no muscle stiffness, no neck pain. INTEGUMENTARY: No change in color, no change in hair/nails, no dryness, no lesion, no lumps, no rash. NEUROLOGICAL/PSYCH: No anxiety, not depressed, no emotional problem, no headache, no numbness, no pre-existing deficit, no history of seizures, no tremors, no weakness. HEMATOLOGIC/LYMPHATIC: Not anemic, no history of blood clots, no apparent bleeding, no bruising, glands not swollen. All Systems Negative, Except as Noted. Physical Exam Physical Exam Dictation VITAL SIGNS: Reviewed. GENERAL APPEARANCE: Alert, oriented x3, no acute distress, obese. HEAD AND FACE: Non-traumatic. EYES: PERRL, pink conjunctivas, eyelid no trauma, anterior chamber clear. EARS: Pinnas intact and no signs of trauma or erythema. Ear canals clear and no discharge. TMs no erythema. NOSE: No discharge, no bleeding. OROPHARYNX: Mouth normal, teeth no caries, tongue pink. Pharynx clear, no erythema. Tonsils no exudates, no abscesses noted. Mucous membrane moist. NECK: Supple, non-tender, no thyromegaly, no masses, no JVD, no bruits. BREAST: Deferred. CHEST: No tenderness, no crepitus, no paradoxical movement, no retractions. LUNGS: Clear, well-ventilated, symmetric, no rales, no wheezing, no rhonchi, no stridor, good breath sounds bilaterally. HEART: Regular rate, regular rhythm, no murmur, no gallops. VASCULAR: No peripheral edema. ABDOMEN: Soft, positive bowel sounds, nondistended, no guarding, epigastric right upper quadrant tender, no rebound, no masses no hepatomegaly, no splenomegaly, no Gill's sign, no hernias. RECTAL: Deferred. GENITAL: Deferred. NEUROLOGICAL: Normal speech, gross motor function intact, gross sensory function intact. MUSCULOSKELETAL: Neck nontender, full range of motion, back nontender, full range of motion. EXTREMITIES: Nontender, full range of motion. SKIN: Color pink, dry, no turgor, no rash, no lacerations, no abrasions, no contusions. LYMPHATICS: Deferred. Results Laboratory and Microbiology Lab and Micro Result Laboratory Tests Test 01/29/24 09:48 01/29/24 11:23 White Blood Count 11.0 K/uL (4.8-10.8) H Red Blood Count 5.82 MIL/uL (4.50-6.20) Hemoglobin 16.5 g/dL (14.0-18.0) Hematocrit 47.6 % (42-54) Mean Corpuscular Volume 81.8 fL (79-99) Mean Corpuscular Hemoglobin 28.4 pg (27.0-33.0) Mean Corpuscular Hemoglobin Concent 34.7 g/dL (32.0-36.0) Red Cell Distribution Width 14.6 % (11.0-15.5) Platelet Count 187 K/uL (130-400) Mean Platelet Volume 9.7 fL (7.5-10.5) Immature Granulocyte % (Auto) 0.6 % (0-1) Neutrophils (%) (Auto) 67.6 % (40.0-77.0) Lymphocytes (%) (Auto) 23.3 % (21.0-51.0) Monocytes (%) (Auto) 7.7 % (3.0-13.0) Eosinophils (%) (Auto) 0.3 % (0.0-8.0) Basophils (%) (Auto) 0.5 % (0.0-5.0) Neutrophils # (Auto) 7.4 K/uL (1.8-7.7) Lymphocytes # (Auto) 2.6 K/uL (1.0-4.8) Monocytes # (Auto) 0.8 K/uL (0.1-1.0) Eosinophils # (Auto) 0.03 K/uL (0.00-0.70) Basophils # (Auto) 0.06 K/uL (0.00-0.20) Absolute Immature Granulocyte (auto 0.07 K/uL (0-1) Nucleated Red Blood Cells 0.0 % (0.0-0.19) Sodium Level 137 mmol/L (136-145) Potassium Level 4.5 mmol/L (3.5-5.1) Chloride Level 99 mmol/L (101-111) L Carbon Dioxide Level 30 mmol/L (21-32) Blood Urea Nitrogen 20 mg/dL (7-18) H Creatinine 1.1 mg/dL (0.5-1.3) Glomerular Filtration Rate Calc 76 mL/min (>90) Random Glucose 214 mg/dL (70-105) H Total Calcium 8.9 mg/dL (8.5-10.1) Total Bilirubin 0.7 mg/dL (0.2-1.0) Aspartate Amino Transf (AST/SGOT) 15 U/L (10-37) Alanine Aminotransferase (ALT/SGPT) 24 U/L (12-78) Alkaline Phosphatase 146 U/L (50-136) H Total Creatine Kinase 67 U/L (21-232) # Troponin I High Sensitivity 27 ng/L (4-75) Total Protein 7.3 g/dL (6.0-8.3) Albumin 3.6 g/dL (3.5-5.0) Lipase 29 U/L (16-77) Urine Color LIGHT-YELLOW (YELLOW) Urine Appearance CLEAR (CLEAR) Urine pH 6.0 (5.0-8.0) Urine Specific [place] 1.014 (1.001-1.031) Urine Protein 300 mg/dL (NEGATIVE) H Urine Glucose (UA) 70 mg/dL (NEGATIVE) H Urine Ketones NEGATIVE mg/dL (NEGATIVE) Urine Occult Blood MODERATE (NEGATIVE) H Urine Nitrate NEGATIVE (NEGATIVE) Urine Bilirubin NEGATIVE mg/dL (NEGATIVE) Urine Urobilinogen 0.2 mg/dL (0.2-1.0) Urine Leukocyte Esterase NEGATIVE [place]/uL Urine RBC 2-5 /HPF (0-1) H Urine WBC 2-5 /HPF (0-1) H Urine Squamous Epithelial Cells RARE /HPF (0-2) Urine Bacteria None /HPF (None Seen) Urine Hyaline Casts 2-5 /LPF (0-1 /LPF) H Urine Other Casts 2 /LPF (None Seen) Urine Opiates Screen NEGATIVE (NEGATIVE) Urine Barbiturates Screen NEGATIVE (NEGATIVE) Urine Phencyclidine Screen NEGATIVE (NEGATIVE) Urine Amphetamines Screen NEGATIVE (NEGATIVE) Urine Benzodiazepines Screen NEGATIVE (NEGATIVE) Urine Cocaine Screen NEGATIVE (NEGATIVE) Urine Marijuana (THC) Screen POSITIVE (NEGATIVE) H Labs Reviewed?: Yes EKG/XRAY/US/CT/MRI EKG: (-) NSR, (-) rhythm, (-) HI, (-) QRS, (-) ST depression, (-) ST elevation, (-) nonspecific ST T wave chg, (-) nonspecific ST T wave chg, (-) LBBB, (-) RBBB, (-) LVH, (-) abnormal Q waves, (-) unchanged, (-) changed from EKG Comment 01/29/2024 time 9:30 a.m. Ventricular rate [address] wave elevation or depression HI 232 X-RAY Comment [facility] [address] [place] [address] [phone] IMAGING REPORT Signed PATIENT: RENNY NAZARIO MR#: [id number] : 1960 SEX: M AGE: 63 LOCATION: [facility] ORDER 9 STATUS: REG ER REPORT#: [id number] SERVICE 7 REASON: epigastric pain ORDERING PHYSICIAN: LEIZA ABERNATHY MD PROCEDURE: CXR1VW - CHEST 1VW CHEST 1VW HISTORY: Epigastric pain COMPARISON: 07/08/2023 FINDINGS: A frontal projection of the chest was obtained. No acute pulmonary infiltrates is seen. The heart is borderline enlarged. Degenerative changes are seen. Prominent interstitial markings are seen. No evidence of aortic calcification is seen. IMPRESSION: 1. No acute pulmonary infiltrate is seen. Prominent interstitial markings. DICTATED BY: ANNE MARIE SUAREZ MD DATE: 01/29/24 1023 ELECTRONICALLY SIGNED BY: ANNE MARIE SUAREZ MD DATE: 01/29/24 1026 MDM MDM: DIFFERENTIAL DIAGNOSIS: VIRAL GASTROENTERITIS, CANNABIS ABUSE, PATIENT IS A 63-YEAR-OLD MALE COMING IN TO BE EVALUATED FOR NAUSEOUSNESS. UPON EVALUATION LABORATORY WORKUP NEGATIVE FOR ACUTE FINDINGS ON URINE DRUG SCREEN POSITIVE FOR CANNABIS. I COUNSELED PATIENT ON AVOIDANCE OF CANNABIS ESPECIALLY WITH A VIRAL GASTROENTERITIS. PATIENT WILL BE DISCHARGED IN STABLE CONDITION. ED Course Orders Procedure Category Date Status Time Cbc With Differential LAB 01/29/24 Complete 09:28 Comprehensive LAB 01/29/24 Complete Metabolic Panel 09:28 Troponin I High LAB 01/29/24 Complete Sensitivity 09:28 Urinalysis Profile LAB 01/29/24 Complete 09:28 12 Lead Ekg Tracing- EKG 01/29/24 Complete Technical 09:28 0.9%Nacl 1000ml (Ns PHA 01/29/24 Complete 1000ml) 09:30 Ondansetron 4mg Inj PHA 01/29/24 Complete (Zofran 4mg Inj) 09:30 Lidocaine Hcl 2% PHA 01/29/24 Complete Viscous (Lidocaine Hcl 09:30 Mag/Alum/Simeth 30ml PHA 01/29/24 Complete (Maalox Plus 30ml) 09:30 Pantoprazole 40mg Inj PHA 01/29/24 Complete (Protonix 40mg Inj 09:30 Creatine Kinase, Total LAB 01/29/24 Complete : Chest 1vw RAD 01/29/24 Resulted : Lipase LAB 01/29/24 Complete Drug Screen Urine LAB 01/29/24 Complete Current Medications Medications (Trade) Dose Ordered Sig/Bobby Route PRN Reason Start Time Stop Time Status Last Admin Dose Admin Al Hydroxide/Mg Hydroxide (MAALox PLUS 30ML) 30 ml ONCE ONCE PO 01/29/24 09:30 01/29/24 09:31 DC 01/29/24 10:25 Lidocaine HCl (Lidocaine HCl 2% Viscous) 10 ml ONCE ONCE PO 01/29/24 09:30 01/29/24 09:31 DC 01/29/24 10:25 Ondansetron HCl (zoFRAN 4MG INJ) 4 mg ONCE ONCE IVP 01/29/24 09:30 01/29/24 09:31 DC 01/29/24 10:26 Pantoprazole Sodium (PROTonix 40MG INJ) 40 mg ONCE ONCE IVP 01/29/24 09:30 01/29/24 09:31 DC 01/29/24 10:26 Sodium Chloride 1,000 ml @ 0 mls/hr ONCE ONCE IV 01/29/24 09:30 01/29/24 09:31 DC 01/29/24 10:26 Vital Signs Date Time Temp Pulse Resp B/P (MAP) Pulse Ox O2 Delivery O2 Flow Rate FiO2 01/29/24 11:27 77 14 147/86 98 Room Air* 0 21 01/29/24 09:23 98.8 87 16 161/112 96 Room Air 0 DX & DISP Disposition: Discharge Departure Impression: Primary Impression: Viral gastroenteritis Additional Impression: Cannabis abuse Condition: Stable Scripts Ondansetron (Ondansetron Odt) 4 Mg Tab.rapdis 4 MG PO BID PRN for NAUSEA/VOMITING for 3 Days, #6 TAB Prov: ELIZA ABERNATHY MD 01/29/24 Pantoprazole Sodium (Protonix) 40 Mg Ectab 1 TAB PO DAILY for 30 Days, #30 TAB 0 Refills Prov: ELIZA ABERNATHY MD 01/29/24 Additional Instructions: FOLLOW-UP WITH PRIMARY CARE PROVIDER IN 1 TO 2 DAYS. TAKE MEDICATIONS DIRECTED HERE IN THE EMERGENCY ROOM. OKAY TO CONTINUE HOME MEDICATIONS UNLESS OTHERWISE DISCUSSED DURING YOUR VISIT IN THE EMERGENCY ROOM TODAY. RETURN TO YOUR NEAREST EMERGENCY ROOM IF SYMPTOMS WORSEN OR IF THERE IS NO IMPROVEMENT. CALL 911 IF YOU NEED IMMEDIATE ASSISTANCE. TAKE TYLENOL [id number] NEEDED AND IF NO CONTRAINDICATIONS ARE PRESENT. INCREASE ORAL HYDRATION. A WOUND CULTURE OR URINE CULTURE WAS ORDERED HERE IN THE EMERGENCY ROOM DEPARTMENT PLEASE FOLLOW-UP WITH PRIMARY CARE PROVIDER AND ADVISE THEM TO GET REPEAT PORTS FROM OUR FACILITY. IF YOU HAD ANY SARANYA WRAP/SPLINTS THAT WERE APPLIED HERE, PLEASE DO NOT REMOVE THEM UNTIL YOU SEE YOUR PRIMARY CARE OR SPECIALTY. REFERRALS: Referrals: NONE (PCP) ELIDA MARTÍNEZ MD Time of Disposition: 12:14 ELIZA ABERNATHY MD Jan 29, 2024 09:31
[2024-01-29 09:55] LABS: BASOPHILS # (AUTO) 0.06 K/uL (0.00-0.20); BASOPHILS % (AUTO) 0.5 % (0.0-5.0); EOSINOPHILS # (AUTO) 0.03 K/uL (0.00-0.70); EOSINOPHILS % (AUTO) 0.3 % (0.0-8.0); HEMATOCRIT 47.6 % (42-54); IMMATURE GRANULOCYTE ABSOLUTE 0.07 K/uL (0-1); LYMPHOCYTES # (AUTO) 2.6 K/uL (1.0-4.8); LYMPHOCYTES % (AUTO) 23.3 % (21.0-51.0); MEAN CORPUSCULAR HEMOGLOBIN 28.4 pg (27.0-33.0); MEAN CORPUSCULAR HGB CONC 34.7 g/dL (32.0-36.0); MEAN CORPUSCULAR VOLUME 81.8 fL (79-99); MONOCYTES # (AUTO) 0.8 K/uL (0.1-1.0); MONOCYTES % (AUTO) 7.7 % (3.0-13.0); NEUTROPHILS # (AUTO) 7.4 K/uL (1.8-7.7); NEUTROPHILS % (AUTO) 67.6 % (40.0-77.0); PLATELET COUNT (AUTO) 187 K/uL (130-400); RED BLOOD CELL COUNT(AUTO) 5.82 MIL/uL (4.50-6.20); RED CELL DISTRIBUTION WIDTH 14.6 % (11.0-15.5)
--- NOTE | 2024-01-29 10:16 | NUR ---
BEDDED ER 18 AT THIS TIME
[2024-01-29 10:23] LABS: ALBUMIN 3.6 g/dL (3.5-5.0); BILIRUBIN,TOTAL 0.7 mg/dL (0.2-1.0); CREATININE 1.1 mg/dL (0.5-1.3); POTASSIUM 4.5 mmol/L (3.5-5.1); TOTAL PROTEIN, SERUM 7.3 g/dL (6.0-8.3)
[2024-01-29] MEDS: LIDOCAINE HCL 2% VISCOUS 15 ML UDCUP PO ONE (10:25)
[2024-01-29] MEDS: MAG/ALUM/SIMETH 30 ML UDCUP PO ONE (10:25)
[2024-01-29] MEDS: PANTOPrazole 40 MG/VIAL IVP ONE (10:26)
[2024-01-29] MEDS: ondanSETRON 4MG INJ IVP ONE (10:26)
[2024-01-29] MEDS: 0.9%NACL 1000ML 1,000 ML IV ONE (10:26)
--- NOTE | 2024-01-29 10:26 | HMCIMG ---
CHEST 1VW HISTORY: Epigastric pain COMPARISON: 07/08/2023 FINDINGS: A frontal projection of the chest was obtained. No acute pulmonary infiltrates is seen. The heart is borderline enlarged. Degenerative changes are seen. Prominent interstitial markings are seen. No evidence of aortic calcification is seen. IMPRESSION: 1. No acute pulmonary infiltrate is seen. Prominent interstitial markings.
--- NOTE | 2024-01-29 10:39 | NUR ---
PT MADE AWARE OF UA ORDER. URINAL GIVEN.
--- NOTE | 2024-01-29 11:09 | EKG ---
[facility] Test Date: 2024-01-29 Test Time: 09:30:45 Pat Name: RENNY NAZARIO Department: ED Room: Gender: M Head Of Integrated Media: [id number] : 1960 Requested By: ELIZA ABERNATHY Order Number: [id number] Reading MD: Divina Linda Measurements Intervals [place] Rate: 77 P: 46 NH: 232 QRS: -13 QRSD: 99 T: 190 QT: 386 QTc: 438 Interpretive Statements Sinus rhythm Prolonged [place] interval Nonspecific repol abnormality, diffuse leads Compared to ECG 05/23/2023 17:47:56 Early repolarization now present Electronically Signed On 01-31-2024 17:34:06 LEAD SHIPPER by Divina Linda Please click the below link to view image of tracing.
[2024-01-29 11:27] VITALS: BP 147/86; PULSE 77; RESP 14; O2SAT 98
[2024-01-29 11:42] LABS: APPEARANCE,URINE CLEAR (CLEAR); BILIRUBIN,URINE NEGATIVE (NEGATIVE); COLOR,URINE LIGHT-YELLOW (YELLOW); GLUCOSE, URINE (UA) 70 mg/dL (NEGATIVE); KETONES,URINE NEGATIVE (NEGATIVE); LEUKOCYTE ESTERASE ,URINE NEGATIVE Leu/uL (NEGATIVE); NITRATE,URINE NEGATIVE (NEGATIVE); OCCULT BLOOD,URINE MODERATE (NEGATIVE); PROTEIN,URINE 300 mg/dL (NEGATIVE); UROBILINOGEN,URINE 0.2 mg/dL (0.2-1.0)
[2024-01-29 11:44] LABS: ADD UA MICROSCOPIC YES
[2024-01-29 11:56] LABS: MUCUS,URINE RARE LPF (None Seen); OTHER CASTS, URINE 2 /LPF (None Seen); SQUAMOUS EPITHELIAL CELL,UR RARE /HPF (0-2)
[2024-01-29 12:05] LABS: AMPHET/METH SCREEN,URINE NEGATIVE (NEGATIVE); BARBITURATE SCREEN, URINE NEGATIVE (NEGATIVE); BENZODIAZEPINES SCREEN,URINE NEGATIVE (NEGATIVE); CANNABINOID SCREEN,URINE POSITIVE (NEGATIVE); COCAINE SCREEN,URINE NEGATIVE (NEGATIVE); OPIATE SCREEN,URINE NEGATIVE (NEGATIVE); PHENCYCLIDINE SCREEN,URINE NEGATIVE (NEGATIVE)
[2024-01-29] MEDS ORDERED: ONDA-243 PO (12:16)
[2024-01-29] MEDS ORDERED: PANT40TA55 PO (12:16)
[2024-01-29] MEDS ORDERED: PROM6.2527 PO (12:32)
== END 2024-01-29 12:23 | disposition home or self-care (01) ==
LOC: EDH 09:22
DX: A08.4 Viral intestinal infection, unspecified (principal); F12.10 Cannabis abuse, uncomplicated; E11.9 Type 2 diabetes mellitus without complications; Z79.01 Long term (current) use of anticoagulants; Z79.02 Long term (current) use of antithrombotics/antiplatelets; Z79.82 Long term (current) use of aspirin; Z79.84 Long term (current) use of oral hypoglycemic drugs; Z79.899 Other long term (current) drug therapy; Z86.711 Personal history of pulmonary embolism; Z86.718 Personal history of other venous thrombosis and embolism
CPT/HCPCS: 99285; 96374; 71045; 96361; 96375; 82550; 84484; 80053; 80305; 83690; 85025; 36415; 93005; 81001; J7030; J2405; J2470

== ENCOUNTER 2024-05-18 09:05 | Emergency (ER) | payer SELFPAY ==
[~2024-05-18] VITALS: Ht 175.3 cm; Wt 108.9 kg
[~2024-05-18 09:05] MED LIST changes: +ONDA-243 PO; +PANT40TA55 PO; +PROM6.2527 PO
--- NOTE | 2024-05-18 09:15 | NUR ---
PT PLACED IN TO ER 15.
--- NOTE | 2024-05-18 09:59 | ERN ---
ED Note History of Present Illness Stated Complaint: SEIZURE Chief Complaint: Seizure Time Seen by MD: 09:24 Dictation: 64-year-old male with a history of DVT and pulmonary embolism on Eliquis presents to the ED for evaluation of tremors onset one day ago worsening this morning. Patient states sudden jerking movements come and go and believes they might be seizures. Patient has no history of seizures and has not followed up with PCP stating that he is waiting for his "disability to kick in." Medication: metformin and tramadol. Allergies: Coded Allergies: No Known Allergies (Verified Allergy, Unknown, 11/11/18) Home Meds Active Scripts Promethazine HCl (Phenergan) 6.25 Mg/5 Ml Syrup, 5 ML PO BID for motion sickness for 1 Day, #10 ML 0 Refills Prov:ELIZA ABERNATHY MD 01/29/24 Ondansetron (Ondansetron Odt) 4 Mg Tab.rapdis, 4 MG PO BID PRN for NAUSEA/VOMITING for 3 Days, #6 TAB Prov:ELIZA ABERNATHY MD 01/29/24 Pantoprazole Sodium (Protonix) 40 Mg Ectab, 1 TAB PO DAILY for 30 Days, #30 TAB 0 Refills Prov:ELIZA ABERNATHY MD 01/29/24 Rivaroxaban (Xarelto) 20 Mg Tablet, 20 MG PO DAILY, #30 TAB 1 Refill Prov:MARTINA PEÑA MD 07/12/23 Lidocaine (Lidocaine Pain Relief) 4 % Adh..patch, 1 EACH TP DAILY, #30 ADH.PATCH 0 Refills Prov:MARTINA PEÑA MD 07/12/23 Hydroxyzine HCl (Hydroxyzine HCl) 25 Mg Tablet, 50 MG PO TID, #90 TAB 0 Refills Prov:MARTINA PEÑA MD 07/12/23 Furosemide (Furosemide) 20 Mg Tablet, 20 MG PO DAILY, #30 TAB Prov:MARTINA PEÑA MD 07/12/23 Fluoxetine HCl (Prozac) 10 Mg Capsule, 30 MG PO HS, #90 CAP 1 Refill Prov:MARTINA PEÑA MD 07/12/23 Aspirin (ASPIRIN 81 MG ECTAB) 81 Mg Ectab, 81 MG PO DAILY, #30 TAB.EC 0 Refills Prov:MARTINA PEÑA MD 07/12/23 Acetaminophen with Codeine (Acetaminophen-Cod #3 Tablet) 300 Mg-30 Mg Tablet, 1 EACH PO q6hr for pain, #30 TAB 0 Refills Prov:FEROZ PHOENIX MD 06/05/23 Lorazepam (Ativan) 0.5 Mg Tablet, 0.25 MG PO TIDP PRN for ANXIETY/AGITATION for 7 Days, #20 TAB Prov:PUNEET CORNELIUS 06/05/23 Zinc Sulfate (Zinc Sulfate 220 Cap) 50 Mg Zinc (220 Mg) Capsule, 220 MG PO DAILY, #30 CAP Prov:PUNEET CORNELIUS 06/05/23 Insulin Glargine,Hum.rec.anlog (Lantus) 100 Unit/Ml Inj, 10 UNITS SQ HS, #10 ML 2 Refills Prov:PUNEET CORNELIUS 06/05/23 Famotidine (Famotidine) 20 Mg Tablet, 20 MG PO DAILY, #90 TAB Prov:PUNEET CORNELIUS 06/05/23 Clopidogrel Bisulfate (Plavix) 75 Mg Tablet, 75 MG PO DAILY, #90 TAB Prov:PUNEET CORNELIUS 06/05/23 Atorvastatin Calcium (LIPITOR) 40 Mg Tablet, 40 MG PO HS, #90 TAB Prov:PUNEET CORNELIUS 06/05/23 Reported Medications [albos] No Conflict Check, 1 CAP PO DAILY PRN for INDIGESTION 05/23/23 Metformin HCl (Metformin HCl) 1,000 Mg Tablet, 1000 MG PO BID, TAB 10/06/20 Past Medical History Past Medical History: Diabetes-Type II, DVT, Other Additional Past Medical Hx: PULMONARY EMBOLISM, MRSA Surgical History: Other Surgical History Other: PILONITAL CYST REMOVAL, TOE APUTATION Social History: Negative Review of System Dictation Constitutional: Negative for fever,chills, and weight loss Eyes: Negative for injury, pain,redness, and discharge ENT: Negative for injury,pain or swelling Cardiovascular: Negative for chest pain, palpitations, and edema Respiratory: Negative for shortness of breath, cough, and wheezing, Abdomen/GI: Negative for abdominal pain, nausea, vomiting, diarrhea, and constipation Back: Negative for injury and pain : Negative for injury, bleeding and discharge MS/Extremity: Negative for injury and deformity Skin: Negative for rash, and discoloration Neuro: Positive for tremors Negative for headache, weakness, numbness, tingling, and seizure Psych: Negative for suicide ideation, homicidal ideation, and hallucinations Initial Vital Sign VS Vital Signs Date Time Temp Pulse Resp B/P (MAP) Pulse Ox O2 Delivery O2 Flow Rate FiO2 05/18/24 09:08 97.5 89 18 97 0 05/18/24 09:30 139/71 Room Air* 21 Physical Exam Dictation General: awake, alert, NAD Head/Face: Normocephalic, atraumatic Eyes: PERRL, EOMI, vision at baseline ENT: oral cavity clear, TMs clear, no signs of infection Neck: Trachea midline, supple, no nuchal rigidity Cardiovascular: RRR, normal S1/S2, No MRGs, no JVD Respiratory: CTAB, no respiratory distress, No rales or wheezes Abdomen: Soft, non-tender, non-distended, normal bowel sounds, no guarding or rebound. Skin: Warm, dry, normal turgor, no rash MS/Extremity: Pulses equal, no cyanosis, neurovascular intact, FROM Neuro: COAx4, GCS 15, strength 5/5, CN 2-12 intact, normal cerebellar exam, normal gait, Psych: Normal behavior, mood, and affect normal Results (Laboratory/Radiology) Laboratory/Radiology Laboratory Tests Test 05/18/24 10:03 White Blood Count 8.4 K/uL (4.8-10.8) Red Blood Count 4.19 MIL/uL (4.50-6.20) L Hemoglobin 12.3 g/dL (14.0-18.0) L Hematocrit 37.4 % (42-54) L Mean Corpuscular Volume 89.3 fL (79-99) Mean Corpuscular Hemoglobin 29.4 pg (27.0-33.0) Mean Corpuscular Hemoglobin Concent 32.9 g/dL (32.0-36.0) Red Cell Distribution Width 12.8 % (11.0-15.5) Platelet Count 144 K/uL (130-400) Mean Platelet Volume 10.0 fL (7.5-10.5) Immature Granulocyte % (Auto) 0.4 % (0-1) Neutrophils (%) (Auto) 75.1 % (40.0-77.0) Lymphocytes (%) (Auto) 16.2 % (21.0-51.0) L Monocytes (%) (Auto) 5.2 % (3.0-13.0) Eosinophils (%) (Auto) 2.5 % (0.0-8.0) Basophils (%) (Auto) 0.6 % (0.0-5.0) Neutrophils # (Auto) 6.3 K/uL (1.8-7.7) Lymphocytes # (Auto) 1.4 K/uL (1.0-4.8) Monocytes # (Auto) 0.4 K/uL (0.1-1.0) Eosinophils # (Auto) 0.21 K/uL (0.00-0.70) Basophils # (Auto) 0.05 K/uL (0.00-0.20) Absolute Immature Granulocyte (auto 0.03 K/uL (0-1) Nucleated Red Blood Cells 0.0 % (0.0-0.19) Sodium Level 137 mmol/L (136-145) Potassium Level 4.3 mmol/L (3.5-5.1) Chloride Level 103 mmol/L (101-111) Carbon Dioxide Level 29 mmol/L (21-32) Blood Urea Nitrogen 18 mg/dL (7-18) Creatinine 1.0 mg/dL (0.5-1.3) Glomerular Filtration Rate Calc 85 mL/min (>90) Random Glucose 167 mg/dL (70-105) H Total Calcium 8.1 mg/dL (8.5-10.1) L Total Bilirubin 0.3 mg/dL (0.2-1.0) Direct Bilirubin 0.1 mg/dL (0.0-0.3) Aspartate Amino Transf (AST/SGOT) 19 U/L (10-37) Alanine Aminotransferase (ALT/SGPT) 21 U/L (12-78) Alkaline Phosphatase 157 U/L (50-136) H Total Creatine Kinase 142 U/L (21-232) # Troponin I High Sensitivity 27 ng/L (4-75) Total Protein 6.7 g/dL (6.0-8.3) Albumin 3.1 g/dL (3.5-5.0) L Labs Reviewed?: Yes EKG Comment: EKG 05/18/2024 time 10:50 a.m. ventricular rate 95, QRS D 141, QT 427 atrial fibrillation,. Ventricular premature complexes, RBBB and LAFB. No STEMI CT Scan Comment: REASON: sz ORDERING PHYSICIAN: NEELAM COOLEY MD PROCEDURE: HEAD WO - CT HEAD/BRAIN W/O CONTRAST CT HEAD/BRAIN W/O CONTRAST INDICATION: sz TECHNIQUE: CT HEAD/BRAIN W/O CONTRAST. CT was performed with one or more of the following dose reduction techniques: Automated exposure control, adjustment of the mA and/or kV according to the patient's size, or use of the iterative reconstruction technique. Comparison: None FINDINGS: Cerebral atrophy seen. Nonspecific periventricular and subcortical white matters changes are noted likely representing small vessel ischemic changes. No midline shift or herniation. No extra axial collection. No acute intracranial bleed. The visualized paranasal sinuses and mastoid air cells are normally aerated. IMPRESSION: Diffuse atrophy. No acute intracranial bleed is seen. Nonspecific white matter changes DICTATED BY: GOMEZ LEIJA MD DATE: 05/18/24 1056 ED Course ED Course Orders Procedure Category Date Status Time 12 Lead Ekg Tracing- EKG 05/18/24 Logged Technical 09:44 Basic Metabolic Panel LAB 05/18/24 Complete 09:44 Cbc With Differential LAB 05/18/24 Complete 09:44 Hepatic Function Panel LAB 05/18/24 Complete 09:44 Creatine Kinase, Total LAB 05/18/24 Complete 09:44 Troponin I High LAB 05/18/24 Complete Sensitivity 09:44 Ct Head/Brain W/O CT 05/18/24 Resulted Contrast 09:44 Lorazepam 2 Mg PHA 05/18/24 Complete (Ativan) 10:00 0.9%Nacl 1000ml (Ns PHA 05/18/24 Complete 1000ml) 10:00 Current Medications Medications (Trade) Dose Ordered Sig/Bobby Route PRN Reason Start Time Stop Time Status Last Admin Dose Admin Lorazepam (AtiVAN) 1 mg ONCE ONCE IVP 05/18/24 10:00 05/18/24 10:01 DC 05/18/24 10:17 Sodium Chloride 1,000 ml @ 0 mls/hr ONCE ONCE IV 05/18/24 10:00 05/18/24 10:01 DC 05/18/24 10:17 Vital Signs Date Time Temp Pulse Resp B/P (MAP) Pulse Ox O2 Delivery O2 Flow Rate FiO2 05/18/24 09:30 97.3 77 16 139/71 97 Room Air* 0 21 05/18/24 09:08 97.5 89 18 97 0 Medical Decision Making MDM MDM: Differential diagnosis: Electrolyte imbalance, seizure-like activity Rationale: Tests considered and ordered secondary to shared decision making include: labs, ECG and radiology Risk of complication and/or morbidity or mortality of patient management: None Medications-Per medication reconciliation Need for hospitalization: Patient does meet criteria for hospitalization. Need for emergency major/minor surgery: No There are no social concerns with this patient. Prescription drug management Prescriptions will include symptomatic care I independently interpreted the test that were performed, results were reviewed by me and considered findings on radiology if ordered. 1230- Patient states he is feeling better and is ready for discharge. There are no signs of seizure-like activity here. Patient was told to follow up with PCP outpatient. DX & DISP Disposition: Discharge Departure Impression: Primary Impression: Seizure-like activity Condition: Stable Referrals: SELF,REFERRAL (PCP) GAMALIEL OQUENDO MD, CHRISTOPHER MD May 18, 2024 09:59
[2024-05-18 10:12] LABS: BASOPHILS # (AUTO) 0.05 K/uL (0.00-0.20); BASOPHILS % (AUTO) 0.6 % (0.0-5.0); EOSINOPHILS # (AUTO) 0.21 K/uL (0.00-0.70); EOSINOPHILS % (AUTO) 2.5 % (0.0-8.0); HEMATOCRIT 37.4 % (42-54); IMMATURE GRANULOCYTE ABSOLUTE 0.03 K/uL (0-1); LYMPHOCYTES # (AUTO) 1.4 K/uL (1.0-4.8); LYMPHOCYTES % (AUTO) 16.2 % (21.0-51.0); MEAN CORPUSCULAR HEMOGLOBIN 29.4 pg (27.0-33.0); MEAN CORPUSCULAR HGB CONC 32.9 g/dL (32.0-36.0); MEAN CORPUSCULAR VOLUME 89.3 fL (79-99); MONOCYTES # (AUTO) 0.4 K/uL (0.1-1.0); MONOCYTES % (AUTO) 5.2 % (3.0-13.0); NEUTROPHILS # (AUTO) 6.3 K/uL (1.8-7.7); NEUTROPHILS % (AUTO) 75.1 % (40.0-77.0); PLATELET COUNT (AUTO) 144 K/uL (130-400); RED BLOOD CELL COUNT(AUTO) 4.19 MIL/uL (4.50-6.20); RED CELL DISTRIBUTION WIDTH 12.8 % (11.0-15.5); WHITE BLOOD COUNT (AUTO) 8.4 K/uL (4.8-10.8)
[2024-05-18] MEDS: LORazepam 2 MG/ML 1 ML VIAL IVP ONE (10:17)
[2024-05-18] MEDS: 0.9%NACL 1000ML 1,000 ML IV ONE (10:17)
[2024-05-18 10:31] LABS: POTASSIUM 4.3 mmol/L (3.5-5.1)
[2024-05-18 10:36] LABS: ALBUMIN 3.1 g/dL (3.5-5.0); BILIRUBIN,DIRECT 0.1 mg/dL (0.0-0.3); BILIRUBIN,TOTAL 0.3 mg/dL (0.2-1.0); TOTAL PROTEIN, SERUM 6.7 g/dL (6.0-8.3)
--- NOTE | 2024-05-18 11:00 | HMCIMG ---
CT HEAD/BRAIN W/O CONTRAST INDICATION: sz TECHNIQUE: CT HEAD/BRAIN W/O CONTRAST. CT was performed with one or more of the following dose reduction techniques: Automated exposure control, adjustment of the mA and/or kV according to the patient's size, or use of the iterative reconstruction technique. Comparison: None FINDINGS: Cerebral atrophy seen. Nonspecific periventricular and subcortical white matters changes are noted likely representing small vessel ischemic changes. No midline shift or herniation. No extra axial collection. No acute intracranial bleed. The visualized paranasal sinuses and mastoid air cells are normally aerated. IMPRESSION: Diffuse atrophy. No acute intracranial bleed is seen. Nonspecific white matter changes
[2024-05-18 12:57] VITALS: BP 156/85; PULSE 85; RESP 18; TEMP 97.5; O2SAT 98
--- NOTE | 2024-05-18 13:02 | EKG ---
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 : 1960 Requested By: NEELAM COOLEY Order Number: [id number] Reading MD: Oliver Benitez Measurements Intervals [place] Rate: 95 P: 0 AL: 0 QRS: -85 QRSD: 141 T: 71 QT: 427 QTc: 538 Interpretive Statements Atrial fibrillation Paired ventricular premature complexes RBBB and LAFB Compared to ECG 01/29/2024 09:30:45 Ventricular premature complex(es) now present Left anterior fascicular block now present Right bundle-branch block now present Sinus rhythm no longer present First degree AV block no longer present Early repolarization no longer present Electronically Signed On 05-18-2024 13:40:14 CDT by Oliver Benitez Please click the below link to view image of tracing.
== END 2024-05-18 13:00 | disposition home or self-care (01) ==
LOC: EDH 09:05
DX: R56.9 Unspecified convulsions (principal); E11.9 Type 2 diabetes mellitus without complications; I48.91 Unspecified atrial fibrillation; Z79.01 Long term (current) use of anticoagulants; Z79.02 Long term (current) use of antithrombotics/antiplatelets; Z79.82 Long term (current) use of aspirin; Z79.84 Long term (current) use of oral hypoglycemic drugs; Z79.899 Other long term (current) drug therapy
CPT/HCPCS: 99285; 96374; 70450; 96361; 82550; 80076; 84484; 80048; 85025; 36415; 93005; J7030; J2060

== ENCOUNTER 2024-06-17 08:35 | Emergency (ER) | payer SELFPAY ==
[~2024-06-17] VITALS: Ht 175.3 cm; Wt 108.9 kg
[2024-06-17] MEDS: ondanSETRON 4MG INJ IVP ONE (09:11)
[2024-06-17] MEDS: PANTOPrazole 40 MG/VIAL IVP ONE (09:11)
[2024-06-17] MEDS: LIDOCAINE HCL 2% VISCOUS 15 ML UDCUP PO ONE (09:11)
[2024-06-17] MEDS: MAG/ALUM/SIMETH 30 ML UDCUP PO ONE (09:12)
[2024-06-17] MEDS: LACTATED RINGERS 1000ML 1,000 ML IV ONE (09:12)
[2024-06-17 09:15] LABS: BASOPHILS # (AUTO) 0.06 K/uL (0.00-0.20); BASOPHILS % (AUTO) 0.4 % (0.0-5.0); EOSINOPHILS # (AUTO) 0.04 K/uL (0.00-0.70); EOSINOPHILS % (AUTO) 0.3 % (0.0-8.0); HEMATOCRIT 49.3 % (42-54); IMMATURE GRANULOCYTE ABSOLUTE 0.06 K/uL (0-1); LYMPHOCYTES # (AUTO) 2.8 K/uL (1.0-4.8); LYMPHOCYTES % (AUTO) 18.8 % (21.0-51.0); MEAN CORPUSCULAR HEMOGLOBIN 28.7 pg (27.0-33.0); MEAN CORPUSCULAR HGB CONC 34.3 g/dL (32.0-36.0); MEAN CORPUSCULAR VOLUME 83.7 fL (79-99); MONOCYTES # (AUTO) 0.8 K/uL (0.1-1.0); MONOCYTES % (AUTO) 5.2 % (3.0-13.0); NEUTROPHILS # (AUTO) 10.9 K/uL (1.8-7.7); NEUTROPHILS % (AUTO) 74.9 % (40.0-77.0); PLATELET COUNT (AUTO) 225 K/uL (130-400); RED BLOOD CELL COUNT(AUTO) 5.89 MIL/uL (4.50-6.20); RED CELL DISTRIBUTION WIDTH 13.1 % (11.0-15.5); WHITE BLOOD COUNT (AUTO) 14.6 K/uL (4.8-10.8)
[2024-06-17 09:30] LABS: CREATININE 1.2 mg/dL (0.5-1.3); POTASSIUM 4.4 mmol/L (3.5-5.1)
[2024-06-17 09:34] LABS: ALBUMIN 3.5 g/dL (3.5-5.0); BILIRUBIN,TOTAL 0.5 mg/dL (0.2-1.0); TOTAL PROTEIN, SERUM 7.2 g/dL (6.0-8.3)
[2024-06-17 09:35] LABS: APPEARANCE,URINE CLOUDY (CLEAR); BILIRUBIN,URINE NEGATIVE (NEGATIVE); COLOR,URINE LIGHT-YELLOW (YELLOW); GLUCOSE, URINE (UA) 50 mg/dL (NEGATIVE); KETONES,URINE NEGATIVE (NEGATIVE); LEUKOCYTE ESTERASE ,URINE NEGATIVE Leu/uL (NEGATIVE); NITRATE,URINE NEGATIVE (NEGATIVE); OCCULT BLOOD,URINE MODERATE (NEGATIVE); PH,URINE 5.5 (5.0-8.0); PROTEIN,URINE 300 mg/dL (NEGATIVE); UROBILINOGEN,URINE 0.2 mg/dL (0.2-1.0)
[2024-06-17 09:39] LABS: ADD UA MICROSCOPIC YES
--- NOTE | 2024-06-17 09:46 | ERN ---
General Chief Complaint: Abdominal Pain Stated Complaint: ABDOMINAL PAIN Time Seen by MD: 08:39 Source: patient History of Present Illness Initial Comments Patient is a 64-year-old male coming in with epigastric and nauseousness. Per patient he has been having these symptoms for a week and a half. He states that the symptoms improved but two days ago started getting worse. No fever no chills Allergies: Coded Allergies: No Known Allergies (Verified Allergy, Unknown, 11/11/18) Home Meds Active Scripts Promethazine HCl (Phenergan) 6.25 Mg/5 Ml Syrup, 5 ML PO BID for motion sickness for 1 Day, #10 ML 0 Refills Prov:ELIZA ABERNATHY MD 01/29/24 Ondansetron (Ondansetron Odt) 4 Mg Tab.rapdis, 4 MG PO BID PRN for NAUSEA/VOMITING for 3 Days, #6 TAB Prov:ELIZA ABERNATHY MD 01/29/24 Pantoprazole Sodium (Protonix) 40 Mg Ectab, 1 TAB PO DAILY for 30 Days, #30 TAB 0 Refills Prov:ELIZA ABERNATHY MD 01/29/24 Rivaroxaban (Xarelto) 20 Mg Tablet, 20 MG PO DAILY, #30 TAB 1 Refill Prov:MARTINA PEÑA MD 07/12/23 Lidocaine (Lidocaine Pain Relief) 4 % Adh..patch, 1 EACH TP DAILY, #30 ADH.PATCH 0 Refills Prov:MARTINA PEÑA MD 07/12/23 Hydroxyzine HCl (Hydroxyzine HCl) 25 Mg Tablet, 50 MG PO TID, #90 TAB 0 Refills Prov:MARTINA PEÑA MD 07/12/23 Furosemide (Furosemide) 20 Mg Tablet, 20 MG PO DAILY, #30 TAB Prov:MARTINA PEÑA MD 07/12/23 Fluoxetine HCl (Prozac) 10 Mg Capsule, 30 MG PO HS, #90 CAP 1 Refill Prov:MARTINA PEÑA MD 07/12/23 Aspirin (ASPIRIN 81 MG ECTAB) 81 Mg Ectab, 81 MG PO DAILY, #30 TAB.EC 0 Refills Prov:MARTINA PEÑA MD 07/12/23 Acetaminophen with Codeine (Acetaminophen-Cod #3 Tablet) 300 Mg-30 Mg Tablet, 1 EACH PO q6hr for pain, #30 TAB 0 Refills Prov:FEROZ PHOENIX MD 06/05/23 Lorazepam (Ativan) 0.5 Mg Tablet, 0.25 MG PO TIDP PRN for ANXIETY/AGITATION for 7 Days, #20 TAB Prov:PUNEET CORNELIUS 06/05/23 Zinc Sulfate (Zinc Sulfate 220 Cap) 50 Mg Zinc (220 Mg) Capsule, 220 MG PO DAILY, #30 CAP Prov:PUNEET CORNELIUS 06/05/23 Insulin Glargine,Hum.rec.anlog (Lantus) 100 Unit/Ml Inj, 10 UNITS SQ HS, #10 ML 2 Refills Prov:PUNEET CORNELIUS 06/05/23 Famotidine (Famotidine) 20 Mg Tablet, 20 MG PO DAILY, #90 TAB Prov:PUNEET CORNELIUS 06/05/23 Clopidogrel Bisulfate (Plavix) 75 Mg Tablet, 75 MG PO DAILY, #90 TAB Prov:PUNEET CORNELIUS 06/05/23 Atorvastatin Calcium (LIPITOR) 40 Mg Tablet, 40 MG PO HS, #90 TAB Prov:PUNEET CORNELIUS 06/05/23 Reported Medications [albos] No Conflict Check, 1 CAP PO DAILY PRN for INDIGESTION 05/23/23 Metformin HCl (Metformin HCl) 1,000 Mg Tablet, 1000 MG PO BID, TAB 10/06/20 Past Medical History Past Medical History: Diabetes-Type II, DVT, Other Medical History Other: PULMONARY EMBOLISM, MRSA Past Surgical History: Other Surgical History Other: PILONITAL CYST REMOVAL, TOE APUTATION Social History Social History: Negative ROS Dictation CONSTITUTIONAL: No chills, no fever, no weakness, no diaphoresis, no malaise. HEAD/FACE: No signs of trauma. EENT: No eye pain, no blurred vision, no tearing, no double vision, no ear pain, no ear discharge, no nose pain, no nasal congestion, no throat pain, no throat swelling, no mouth pain. RESPIRATORY: No cough, no orthopnea, no SOB, no stridor, no wheezing. CARDIOVASCULAR: No chest pain, no edema, no palpitations, no syncope. GASTROINTESTINAL/ABDOMINAL: No abdominal pain, no constipation, no diarrhea, no nausea, no vomiting. GENITOURINARY: No abnormal discharge, no dysuria, no frequent urination, no hematuria. No complaints of pain in the genitals. MUSCULOSKELETAL: No back pain, no gout, no joint pain, no joint swelling, no muscle pain, no muscle stiffness, no neck pain. INTEGUMENTARY: No change in color, no change in hair/nails, no dryness, no lesion, no lumps, no rash. NEUROLOGICAL/PSYCH: No anxiety, not depressed, no emotional problem, no headache, no numbness, no pre-existing deficit, no history of seizures, no t remors, no weakness. HEMATOLOGIC/LYMPHATIC: Not anemic, no history of blood clots, no apparent bleeding, no bruising, glands not swollen. All Systems Negative, Except as Noted. Physical Exam Physical Exam Dictation VITAL SIGNS: Reviewed. GENERAL APPEARANCE: Alert, oriented x3, no acute distress, obese. HEAD AND FACE: Non-traumatic. EYES: PERRL, pink conjunctivas, eyelid no trauma, anterior chamber clear. EARS: Pinnas intact and no signs of trauma or erythema. Ear canals clear and no discharge. TMs no erythema. NOSE: No discharge, no bleeding. OROPHARYNX: Mouth normal, teeth no caries, tongue pink. Pharynx clear, no erythema. Tonsils no exudates, no abscesses noted. Mucous membrane moist. NECK: Supple, non-tender, no thyromegaly, no masses, no JVD, no bruits. BREAST: Deferred. CHEST: No tenderness, no crepitus, no paradoxical movement, no retractions. LUNGS: Clear, well-ventilated, symmetric, no rales, no wheezing, no rhonchi, no stridor, good breath sounds bilaterally. HEART: Regular rate, regular rhythm, no murmur, no gallops. VASCULAR: No peripheral edema. ABDOMEN: Soft, positive bowel sounds, nondistended, no guarding, nontender, no rebound, no masses no hepatomegaly, no splenomegaly, no Gill's sign, no hernias. RECTAL: Deferred. GENITAL: Deferred. NEUROLOGICAL: Normal speech, gross motor function intact, gross sensory function intact. MUSCULOSKELETAL: Neck nontender, full range of motion, back nontender, full range of motion. EXTREMITIES: Nontender, full range of motion. SKIN: Color pink, dry, no turgor, no rash, no lacerations, no abrasions, no contusions. LYMPHATICS: Deferred. Results Laboratory and Microbiology Lab and Micro Result Laboratory Tests Test 06/17/24 09:00 06/17/24 09:24 White Blood Count 14.6 K/uL (4.8-10.8) H Red Blood Count 5.89 MIL/uL (4.50-6.20) Hemoglobin 16.9 g/dL (14.0-18.0) Hematocrit 49.3 % (42-54) Mean Corpuscular Volume 83.7 fL (79-99) Mean Corpuscular Hemoglobin 28.7 pg (27.0-33.0) Mean Corpuscular Hemoglobin Concent 34.3 g/dL (32.0-36.0) Red Cell Distribution Width 13.1 % (11.0-15.5) Platelet Count 225 K/uL (130-400) Mean Platelet Volume 10.7 fL (7.5-10.5) H Immature Granulocyte % (Auto) 0.4 % (0-1) Neutrophils (%) (Auto) 74.9 % (40.0-77.0) Lymphocytes (%) (Auto) 18.8 % (21.0-51.0) L Monocytes (%) (Auto) 5.2 % (3.0-13.0) Eosinophils (%) (Auto) 0.3 % (0.0-8.0) Basophils (%) (Auto) 0.4 % (0.0-5.0) Neutrophils # (Auto) 10.9 K/uL (1.8-7.7) H Lymphocytes # (Auto) 2.8 K/uL (1.0-4.8) Monocytes # (Auto) 0.8 K/uL (0.1-1.0) Eosinophils # (Auto) 0.04 K/uL (0.00-0.70) Basophils # (Auto) 0.06 K/uL (0.00-0.20) Absolute Immature Granulocyte (auto 0.06 K/uL (0-1) Nucleated Red Blood Cells 0.0 % (0.0-0.19) Sodium Level 135 mmol/L (136-145) L Potassium Level 4.4 mmol/L (3.5-5.1) Chloride Level 99 mmol/L (101-111) L Carbon Dioxide Level 26 mmol/L (21-32) Blood Urea Nitrogen 26 mg/dL (7-18) H Creatinine 1.2 mg/dL (0.5-1.3) Glomerular Filtration Rate Calc 68 mL/min (>90) Random Glucose 221 mg/dL (70-105) H Total Calcium 8.6 mg/dL (8.5-10.1) Total Bilirubin 0.5 mg/dL (0.2-1.0) Aspartate Amino Transf (AST/SGOT) 18 U/L (10-37) Alanine Aminotransferase (ALT/SGPT) 19 U/L (12-78) Alkaline Phosphatase 139 U/L (50-136) H Total Creatine Kinase 73 U/L (21-232) # Troponin I High Sensitivity 24 ng/L (4-75) Total Protein 7.2 g/dL (6.0-8.3) Albumin 3.5 g/dL (3.5-5.0) Lipase 34 U/L (16-77) Urine Color LIGHT-YELLOW (YELLOW) Urine Appearance CLOUDY (CLEAR) H Urine pH 5.5 (5.0-8.0) Urine Specific [place] 1.018 (1.001-1.031) Urine Protein 300 mg/dL (NEGATIVE) H Urine Glucose (UA) 50 mg/dL (NEGATIVE) H Urine Ketones NEGATIVE mg/dL (NEGATIVE) Urine Occult Blood MODERATE (NEGATIVE) H Urine Nitrate NEGATIVE (NEGATIVE) Urine Bilirubin NEGATIVE mg/dL (NEGATIVE) Urine Urobilinogen 0.2 mg/dL (0.2-1.0) Urine Leukocyte Esterase NEGATIVE [place]/uL Urine RBC 2-5 /HPF (0-1) H Urine WBC 2-5 /HPF (0-1) H Urine Squamous Epithelial Cells RARE /HPF (0-2) Urine Bacteria RARE /HPF (None Seen) Labs Reviewed?: Yes EKG/XRAY/US/CT/MRI EKG Comment 06/17/2024 time 9:10 a.m. Ventricular Rate 84 Sinus rhythm [place] [address] wave elevation or depression X-RAY Comment [place] [id number] [place] [id number] IMAGING REPORT Signed PATIENT: RENNY NAZARIO MR#: [id number] : 1960 SEX: M AGE: 64 LOCATION: ED ORDER STATUS: REG ER [place] REPORT#: [id number] SERVICE REASON: cholecystitis ORDERING PHYSICIAN: ELIZA ABERNATHY MD PROCEDURE: ABDRUQLTD - US ABDOMINAL RUQ\LTD US ABDOMINAL RUQ\E\LTD HISTORY: Cholecystitis COMPARISON: None TECHNIQUE: Right upper quadrant abdominal ultrasound study was performed. FINDINGS: Liver measures 16 cm. Pancreas not well seen due to overlying bowel gas. Liver is echogenic consistent with liver parenchymal disease. No gallstone is seen. Common duct measures 5 mm. No evidence of gallbladder wall thickening is seen. Right kidney measures 10.8 x 6.2 x 5.5 cm. No hydronephrosis is seen of the right kidney. IMPRESSION: 1. No gallstones or ductal dilatation is seen. 2. No hydronephrosis is seen. DICTATED BY: ANNE MARIE SUAREZ MD DATE: 06/17/241119 ELECTRONICALLY SIGNED BY: ANNE MARIE SUAREZ MD DATE: 06/17/241121 [place] [id number] IMAGING REPORT Signed PATIENT: RENNY NAZARIO MR#: [id number] : 1960 SEX: M AGE: 64 LOCATION: [facility] ORDER STATUS: REG ER REPORT#: [id number] SERVICE REASON: epigastric pain ORDERING PHYSICIAN: ELIZA ABERNATHY MD PROCEDURE: ABD PEL WO - CT ABDOMEN/PELVIS W/O CONTRAST CT ABDOMEN/PELVIS W/O CONTRAST HISTORY: Epigastric pain COMPARISON: None TECHNIQUE: Multiple sequential axial images of the abdomen and pelvis were obtained from the dome of the diaphragm through symphysis pubis. Patient was not given contrast through intravenous route. Oral contrast was not given. FINDINGS: No pleural effusion is seen bilaterally. There is no evidence of parenchymal disease or pulmonary nodule of the visualized lower lungs. Degenerative changes of the thoracolumbar spine are present. The heart is not enlarged. Liver is enlarged measuring 17 cm. Gallbladder is distended. Spleen is enlarged measuring 14 cm. There are mild abdominal varices. The liver, spleen, adrenal glands and pancreas are unremarkable. There is no evidence of hydronephrosis bilaterally. No evidence of renal stone is seen. Fecal material is seen in the colon. There are normal size retroperitoneal and mesenteric lymph nodes. No ascites is seen. Atherosclerotic changes are present. CT evidence of acute appendicitis is seen. There is minimal diverticulosis. Pelvic sidewalls are symmetric bilaterally. Bladder is well distended without wall thickening. IMPRESSION: 1. Enlarged spleen. Mild abdominal varices. Mild diverticulosis. No ascites. CT was performed with one or more following dose reduction techniques: automated exposure control, adjustment of the mA and kv according to patient's size, or use of a iterative reconstruction technique. DICTATED BY: ANNE MARIE SUAREZ MD DATE: 06/17/24 1117 ELECTRONICALLY SIGNED BY: ANNE MARIE SUAREZ MD DATE: 06/17/24 1122 [facility] MDM: Differential diagnosis: Gastritis, viral gastritis, pancreatitis, NSTEMI, ACS Rationale: Tests considered and ordered secondary to shared decision making include: Previous outside records reviewed: Old ER visits. Patient is a 64-year-old male coming in to be evaluated for nausea vomiting and diarrhea. Laboratory workup negative for acute findings. CT and ultrasound was performed no acute findings were present. Chronic changes included constipation splenomegaly. Patient will be discharged in stable condition with diagnosis of gastroenteritis. ED Course Orders Procedure Category Date Status Time Cbc With Differential LAB 06/17/24 Complete 09:01 Comprehensive LAB 06/17/24 Complete Metabolic Panel 09:01 Troponin I High LAB 06/17/24 Complete Sensitivity 09:01 Urinalysis Profile LAB 06/17/24 Complete 09:01 12 Lead Ekg Tracing- EKG 06/17/24 Complete Technical 09:01 Lactated Ringers PHA 06/17/24 Complete 1000ml (Lactated 09:30 Ondansetron 4mg Inj PHA 06/17/24 Complete (Zofran 4mg Inj) 09:30 Lidocaine Hcl 2% PHA 06/17/24 Complete Viscous (Lidocaine Hcl 09:30 Mag/Alum/Simeth 30ml PHA 06/17/24 Complete (Maalox Plus 30ml) 09:30 Pantoprazole 40mg Inj PHA 06/17/24 Complete (Protonix 40mg Inj 09:30 Creatine Kinase, Total LAB 06/17/24 Complete 09:01 Lipase LAB 06/17/24 Complete 09:01 Us Abdominal Ruq\Ltd US 06/17/24 Resulted 09:50 Ct Abdomen/Pelvis W/O CT 06/17/24 Resulted Contrast 09:50 Bacitracin PHA 06/17/24 Complete (Bacitracin) 11:30 Current Medications Medications (Trade) Dose Ordered Sig/Bobby Route PRN Reason Start Time Stop Time Status Last Admin Dose Admin Al Hydroxide/Mg Hydroxide (MAALox PLUS 30ML) 30 ml ONCE ONCE PO 06/17/24 09:30 06/17/24 09:31 DC 06/17/24 09:12 Bacitracin (Bacitracin) 1 each ONCE ONCE TP 06/17/24 11:30 06/17/24 11:31 DC Lactated Ringer's 1,000 ml @ 0 mls/hr ONCE ONCE IV 06/17/24 09:30 06/17/24 09:31 DC 06/17/24 09:12 Lidocaine HCl (Lidocaine HCl 2% Viscous) 10 ml ONCE ONCE PO 06/17/24 09:30 06/17/24 09:31 DC 06/17/24 09:11 Ondansetron HCl (zoFRAN 4MG INJ) 4 mg ONCE ONCE IVP 06/17/24 09:30 06/17/24 09:31 DC 06/17/24 09:11 Pantoprazole Sodium (PROTonix 40MG INJ) 40 mg ONCE ONCE IVP 06/17/24 09:30 06/17/24 09:31 DC 06/17/24 09:11 Vital Signs Date Time Temp Pulse Resp B/P (MAP) Pulse Ox O2 Delivery O2 Flow Rate FiO2 06/17/24 11:04 98.1 90 20 138/41 99 Room Air* 0 21 06/17/24 09:45 98.4 89 18 114/68 99 Room Air* 0 21 06/17/24 08:59 99.1 90 20 140/94 99 Room Air* 0 21 06/17/24 08:36 99.1 90 20 140/94 98 Room Air DX & DISP Disposition: Discharge Departure Impression: Primary Impression: Hepatosplenomegaly Additional Impressions: Viral gastroenteritis, Constipation Condition: Stable Scripts Linaclotide (Linzess) 145 Mcg Capsule 1 CAP PO DAILY PRN for CONSTIPATION for 7 Days, #7 CAP 0 Refills Prov: ELIZA ABERNATHY MD 06/17/24 Pantoprazole Sodium (Protonix) 40 Mg Ectab 1 TAB PO DAILY for 30 Days, #30 TAB 0 Refills Prov: ELIZA ABERNATHY MD 06/17/24 Additional Instructions: FOLLOW-UP WITH PRIMARY CARE PROVIDER IN 1 TO 2 DAYS. TAKE MEDICATIONS DIRECTED HERE IN THE EMERGENCY ROOM. OKAY TO CONTINUE HOME MEDICATIONS UNLESS O THERWISE DISCUSSED DURING YOUR VISIT IN THE EMERGENCY ROOM TODAY. RETURN TO YOUR NEAREST EMERGENCY ROOM IF SYMPTOMS WORSEN OR IF THERE IS NO IMPROVEMENT. CALL 911 IF YOU NEED IMMEDIATE ASSISTANCE. TAKE TYLENOL [id number] NEEDED AND IF NO CONTRAINDICATIONS ARE PRESENT. INCREASE ORAL HYDRATION. A WOUND CULTURE OR URINE CULTURE WAS ORDERED HERE IN THE EMERGENCY ROOM DEPARTMENT PLEASE FOLLOW-UP WITH PRIMARY CARE PROVIDER AND ADVISE THEM TO GET REPEAT PORTS FROM OUR FACILITY. IF YOU HAD ANY SARANYA WRAP/SPLINTS THAT WERE APPLIED HERE, PLEASE DO NOT REMOVE THEM UNTIL YOU SEE YOUR PRIMARY CARE OR SPECIALTY. Referrals: Referrals: SELF,REFERRAL (PCP) ELIDA MARTÍNEZ MD Time of Disposition: 11:38 ELIZA ABERNATHY MD Jun 17, 2024 09:46
[2024-06-17 09:47] LABS: BACTERIA,URINE RARE /HPF (None Seen); MUCUS,URINE RARE LPF (None Seen); SQUAMOUS EPITHELIAL CELL,UR RARE /HPF (0-2)
--- NOTE | 2024-06-17 10:58 | EKG ---
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
[2024-06-17] MEDS: BACITRACIN 1 EACH PACKET TP ONE (11:18)
--- NOTE | 2024-06-17 11:22 | HMCIMG ---
CT ABDOMEN/PELVIS W/O CONTRAST HISTORY: Epigastric pain COMPARISON: None TECHNIQUE: Multiple sequential axial images of the abdomen and pelvis were obtained from the dome of the diaphragm through symphysis pubis. Patient was not given contrast through intravenous route. Oral contrast was not given. FINDINGS: No pleural effusion is seen bilaterally. There is no evidence of parenchymal disease or pulmonary nodule of the visualized lower lungs. Degenerative changes of the thoracolumbar spine are present. The heart is not enlarged. Liver is enlarged measuring 17 cm. Gallbladder is distended. Spleen is enlarged measuring 14 cm. There are mild abdominal varices. The liver, spleen, adrenal glands and pancreas are unremarkable. There is no evidence of hydronephrosis bilaterally. No evidence of renal stone is seen. Fecal material is seen in the colon. There are normal size retroperitoneal and mesenteric lymph nodes. No ascites is seen. Atherosclerotic changes are present. CT evidence of acute appendicitis is seen. There is minimal diverticulosis. Pelvic sidewalls are symmetric bilaterally. Bladder is well distended without wall thickening. IMPRESSION: 1. Enlarged spleen. Mild abdominal varices. Mild diverticulosis. No ascites. CT was performed with one or more following dose reduction techniques: automated exposure control, adjustment of the mA and kv according to patient's size, or use of a iterative reconstruction technique.
--- NOTE | 2024-06-17 11:22 | HMCIMG ---
US ABDOMINAL RUQ\E\LTD HISTORY: Cholecystitis COMPARISON: None TECHNIQUE: Right upper quadrant abdominal ultrasound study was performed. FINDINGS: Liver measures 16 cm. Pancreas not well seen due to overlying bowel gas. Liver is echogenic consistent with liver parenchymal disease. No gallstone is seen. Common duct measures 5 mm. No evidence of gallbladder wall thickening is seen. Right kidney measures 10.8 x 6.2 x 5.5 cm. No hydronephrosis is seen of the right kidney. IMPRESSION: 1. No gallstones or ductal dilatation is seen. 2. No hydronephrosis is seen.
--- NOTE | 2024-06-17 11:34 | NUR ---
ASSUMED CARE AT THIS TIME RECIEVED REPORT FROM BRANT HUNT
[2024-06-17] MEDS ORDERED: LINA145C PO (11:39)
[2024-06-17] MEDS: ketOROlac 30MG VIAL (30MG/ML) IVP ONE (12:02)
[2024-06-17 12:30] VITALS: BP 131/59; PULSE 85; RESP 20; TEMP 98.1; O2SAT 98
== END 2024-06-17 12:51 | disposition home or self-care (01) ==
LOC: EDH 08:35
DX: R16.2 Hepatomegaly with splenomegaly, not elsewhere classified (principal); A08.4 Viral intestinal infection, unspecified; K59.00 Constipation, unspecified; E11.9 Type 2 diabetes mellitus without complications; Z79.01 Long term (current) use of anticoagulants; Z79.02 Long term (current) use of antithrombotics/antiplatelets; Z79.82 Long term (current) use of aspirin; Z79.84 Long term (current) use of oral hypoglycemic drugs; Z79.899 Other long term (current) drug therapy; Z86.711 Personal history of pulmonary embolism; Z86.718 Personal history of other venous thrombosis and embolism
CPT/HCPCS: 99285; 74176; 96374; 76705; 96375; 82550; 84484; 80053; 83690; 85025; 81001; 36415; 93005; J1885; J7120; J2405; J2470

== ENCOUNTER 2024-06-22 11:36 | Emergency (ER) | payer SELFPAY ==
[~2024-06-22] VITALS: Ht 175.3 cm; Wt 108.9 kg
[~2024-06-22 11:36] MED LIST changes: +LINA145C PO
--- NOTE | 2024-06-22 12:00 | ERN ---
General Chief Complaint: Abdominal Pain Stated Complaint: ABDOMINAL PAIN Time Seen by : 11:38 Time Seen by Midlevel: 11:38 Source: patient History of Present Illness Initial Comments The patient is a 64-year-old male with a past medical history of type 2 diabetes presenting to the emergency department for evaluation of midepigastric abdominal pain. The patient has been seen in our emergency department multiple times for the same complaint. Most recently he was seen in our emergency department several days ago for the exact same complaint. He had an extensive workup that included a CT scan of the abdomen as well as a an ultrasound of the right upper quadrant. Both tests came back negative for any acute intra-abdominal pathology . Today the patient is requesting pain medication at least until you can see his doctor outpatient. Allergies: Coded Allergies: No Known Allergies (Verified Allergy, Unknown, 11/11/18) Home Meds Active Scripts Linaclotide (Linzess) 145 Mcg Capsule, 1 CAP PO DAILY PRN for CONSTIPATION for 7 Days, #7 CAP 0 Refills Prov:ELIZA ABERNATHY MD 06/17/24 Pantoprazole Sodium (Protonix) 40 Mg Ectab, 1 TAB PO DAILY for 30 Days, #30 TAB 0 Refills Prov:ELIZA ABERNATHY MD 06/17/24 Promethazine HCl (Phenergan) 6.25 Mg/5 Ml Syrup, 5 ML PO BID for motion sickness for 1 Day, #10 ML 0 Refills Prov:ELIZA ABERNATHY MD 01/29/24 Ondansetron (Ondansetron Odt) 4 Mg Tab.rapdis, 4 MG PO BID PRN for NAUSEA/VOMITING for 3 Days, #6 TAB Prov:ELIZA ABERNATHY MD 01/29/24 Pantoprazole Sodium (Protonix) 40 Mg Ectab, 1 TAB PO DAILY for 30 Days, #30 TAB 0 Refills Prov:ELIZA ABERNATHY MD 01/29/24 Rivaroxaban (Xarelto) 20 Mg Tablet, 20 MG PO DAILY, #30 TAB 1 Refill Prov:MARTINA PEÑA MD 07/12/23 Lidocaine (Lidocaine Pain Relief) 4 % Adh..patch, 1 EACH TP DAILY, #30 ADH.PATCH 0 Refills Prov:MARTINA PEÑA MD 07/12/23 Hydroxyzine HCl (Hydroxyzine HCl) 25 Mg Tablet, 50 MG PO TID, #90 TAB 0 Refills Prov:MARTINA PEÑA MD 07/12/23 Furosemide (Furosemide) 20 Mg Tablet, 20 MG PO DAILY, #30 TAB Prov:MARTINA PEÑA MD 07/12/23 Fluoxetine HCl (Prozac) 10 Mg Capsule, 30 MG PO HS, #90 CAP 1 Refill Prov:MARTINA PEÑA MD 07/12/23 Aspirin (ASPIRIN 81 MG ECTAB) 81 Mg Ectab, 81 MG PO DAILY, #30 TAB.EC 0 Refills Prov:MARTINA PEÑA MD 07/12/23 Acetaminophen with Codeine (Acetaminophen-Cod #3 Tablet) 300 Mg-30 Mg Tablet, 1 EACH PO q6hr for pain, #30 TAB 0 Refills Prov:FEROZ PHOENIX MD 06/05/23 Lorazepam (Ativan) 0.5 Mg Tablet, 0.25 MG PO TIDP PRN for ANXIETY/AGITATION for 7 Days, #20 TAB Prov:PUNEET CORNELIUS 06/05/23 Zinc Sulfate (Zinc Sulfate 220 Cap) 50 Mg Zinc (220 Mg) Capsule, 220 MG PO DAILY, #30 CAP Prov:PUNEET CORNELIUS 06/05/23 Insulin Glargine,Hum.rec.anlog (Lantus) 100 Unit/Ml Inj, 10 UNITS SQ HS, #10 ML 2 Refills Prov:PUNEET CORNELIUS 06/05/23 Famotidine (Famotidine) 20 Mg Tablet, 20 MG PO DAILY, #90 TAB Prov:PUNEET CORNELIUS 06/05/23 Clopidogrel Bisulfate (Plavix) 75 Mg Tablet, 75 MG PO DAILY, #90 TAB Prov:PUNEET CORNELIUS 06/05/23 Atorvastatin Calcium (LIPITOR) 40 Mg Tablet, 40 MG PO HS, #90 TAB Prov:PUNEET CORNELIUS 06/05/23 Reported Medications [albos] No Conflict Check, 1 CAP PO DAILY PRN for INDIGESTION 05/23/23 Metformin HCl (Metformin HCl) 1,000 Mg Tablet, 1000 MG PO BID, TAB 10/06/20 Past Medical History Past Medical History: Diabetes-Type II, DVT, Other Medical History Other: PULMONARY EMBOLISM, MRSA Past Surgical History: Other Surgical History Other: PILONITAL CYST REMOVAL, TOE APUTATION Social History Social History: Negative ROS Dictation CONSTITUTIONAL: Negative except for HPI HEAD/FACE: Negative except for HPI EENT: Negative except for HPI RESPIRATORY: Negative except for HPI GASTROINTESTINAL/ABDOMINAL: Negative except for HPI GENITOURINARY: Negative except for HPI MUSCULOSKELETAL: Negative except for HPI INTEGUMENTARY: Negative except for HPI NEUROLOGICAL/PSYCH: Negative except for HPI HEMATOLOGIC/LYMPHATIC: Negative except for HPI All Systems Negative, Except as noted above. 13 point review of systems assessed and all negative except for above. Physical Exam Physical Exam Dictation Vital Signs reviewed General Appearance: Alert, oriented x 3, no acute distress, well developed, nourished. Head and Face: non-traumatic. Eyes: PERRL, pink conjunctivas, eyelid no trauma, anterior chamber with arcus senilis. Ears: Pinnas intact and no signs of trauma or erythema ear canals clear and no discharge TM no erythema Nose: No discharge, no bleeding. Oropharynx: Mouth normal, tongue pink, pharynx clear,no erythema, tonsils no exudates, no abscesses noted, mucous membrane moist Neck: Supple, non-tender, no thyromegaly, no masses, no JVD, no bruits Breast:Deferred Chest:No tenderness, no crepitus, no paradoxical movement, no retractions Lungs:Clear, well-ventilated, symmetric, no rales, no wheezing, no rhonchi, no stridor, good breath sounds bilaterally Heart: Regular rate, regular rhythm, no murmur, no gallops Vascular: no peripheral edema, Abdomen: Soft, positive bowel sounds, nondistended, no guarding, nontender, no rebound, no masses no hepatomegaly, no splenomegaly, no Gill's sign, no hernias. Rectal: Deferred Genital: Deferred Neurological: Normal speech, motor function intact, sensory function intact Musculoskeletal: Neck nontender, full range of motion, back nontender, full range of motion, Extremities: nontender, full range of motion Skin: Color pink, dry, no turgor, no rash, no lacerations, no abrasions, no contusions. Lymphatic: Deferred Results Laboratory and Microbiology Lab and Micro Result Laboratory Tests Test 06/22/24 12:05 White Blood Count 10.5 K/uL (4.8-10.8) Red Blood Count 5.05 MIL/uL (4.50-6.20) Hemoglobin 14.3 g/dL (14.0-18.0) Hematocrit 42.7 % (42-54) Mean Corpuscular Volume 84.6 fL (79-99) Mean Corpuscular Hemoglobin 28.3 pg (27.0-33.0) Mean Corpuscular Hemoglobin Concent 33.5 g/dL (32.0-36.0) Red Cell Distribution Width 12.8 % (11.0-15.5) Platelet Count 164 K/uL (130-400) Mean Platelet Volume 10.5 fL (7.5-10.5) Immature Granulocyte % (Auto) 0.3 % (0-1) Neutrophils (%) (Auto) 71.9 % (40.0-77.0) Lymphocytes (%) (Auto) 21.2 % (21.0-51.0) Monocytes (%) (Auto) 5.6 % (3.0-13.0) Eosinophils (%) (Auto) 0.5 % (0.0-8.0) Basophils (%) (Auto) 0.5 % (0.0-5.0) Neutrophils # (Auto) 7.5 K/uL (1.8-7.7) Lymphocytes # (Auto) 2.2 K/uL (1.0-4.8) Monocytes # (Auto) 0.6 K/uL (0.1-1.0) Eosinophils # (Auto) 0.05 K/uL (0.00-0.70) Basophils # (Auto) 0.05 K/uL (0.00-0.20) Absolute Immature Granulocyte (auto 0.03 K/uL (0-1) Nucleated Red Blood Cells 0.0 % (0.0-0.19) Sodium Level 137 mmol/L (136-145) Potassium Level 4.2 mmol/L (3.5-5.1) Chloride Level 100 mmol/L (101-111) L Carbon Dioxide Level 27 mmol/L (21-32) Blood Urea Nitrogen 22 mg/dL (7-18) H Creatinine 1.2 mg/dL (0.5-1.3) Glomerular Filtration Rate Calc 68 mL/min (>90) Random Glucose 205 mg/dL (70-105) H Total Calcium 8.4 mg/dL (8.5-10.1) L Total Bilirubin 0.5 mg/dL (0.2-1.0) Direct Bilirubin 0.1 mg/dL (0.0-0.3) Aspartate Amino Transf (AST/SGOT) 23 U/L (10-37) Alanine Aminotransferase (ALT/SGPT) 16 U/L (12-78) Alkaline Phosphatase 127 U/L (50-136) Troponin I High Sensitivity 25 ng/L (4-75) Total Protein 6.8 g/dL (6.0-8.3) Albumin 3.3 g/dL (3.5-5.0) L Lipase 27 U/L (16-77) Labs Reviewed?: Yes MDM MDM: The patient is a 64-year-old male with a past medical history of type 2 diabetes presenting to the emergency department for evaluation of midepigastric abdominal pain. The patient has been seen in our emergency department multiple times for the same complaint. Most recently he was seen in our emergency department several days ago for the exact same complaint. He had an extensive workup that included a CT scan of the abdomen as well as a an ultrasound of the right upper quadrant. Both tests came back negative for any acute intra- abdominal pathology. Today the patient is requesting pain medication at least until you can see his doctor outpatient. Initial vital signs are remarkable for a temperature of 97.9. Heart rate of 92 beats per minute. Blood pressure is elevated at 170 2/109. O2 saturation is 99% on room air. On initial physical examination the patient appears to be in mild discomfort. He was reporting midepigastric abdominal pain however on examination there is no abdominal tenderness. His initial vital signs are stable. Patient was afebrile and nontoxic appearing. Patient was just seen in the emergency department several days ago for the same complaint. I do believe there is a drug-seeking component. An abdominal workup was initiated along with cardiac enzymes to rule out an acute coronary syndrome. CBC shows no leukocytosis, no anemia, no thrombocytopenia. Chemistries unremarkable. Lipase is normal. No evidence of pancreatitis. His troponin was negative. In his EKG does not show any ST elevations. Based on is reassuring physical examination and unremarkable blood work there was no need for advanced imaging at this time especially since he just had a CT scan and an ultrasound done several days ago. The patient was given a GI cocktail along with Zofran and Pepcid IV but ultimately was discharged home since there was no acute intervention needed at this time. The patient was advised to follow up with his primary care doctor for possible outpatient referral to GI specialist. While I was attempting to discharge the patient he reports continued midepigastric abdominal pain. The pain appears to be out of proportion. A CT scan of the abdomen and pelvis was obtained which does not reveal any acute abnormalities in the epigastric region. A 2nd dose of Toradol was administered. Patient was ultimately discharged home Differential diagnosis: Drug-seeking behavior, pancreatitis, gastritis There are no social concerns with this patient. Prescription drug management Prescriptions will include: None Medical management and examination interpretation discussions were had by me with other qualified healthcare professionals as indicated for the patient's care. ED Course Orders Procedure Category Date Status Time Cbc With Differential LAB 06/22/24 Complete 11:49 Basic Metabolic Panel LAB 06/22/24 Complete 11:49 Hepatic Function Panel LAB 06/22/24 Complete 11:49 Lipase LAB 06/22/24 Complete 11:49 Ondansetron 4mg Inj PHA 06/22/24 Complete (Zofran 4mg Inj) 12:00 Famotidine 20mg Vial PHA 06/22/24 Complete (Pepcid 20mg Vial) 12:00 Lidocaine Hcl 2% PHA 06/22/24 Complete Viscous (Lidocaine Hcl 12:00 Mag/Alum/Simeth 30ml PHA 06/22/24 Complete (Maalox Plus 30ml) 12:00 Troponin I High LAB 06/22/24 Complete Sensitivity 12:09 12 Lead Ekg Tracing- EKG 06/22/24 Logged Technical 12:09 Ketorolac PHA 06/22/24 Complete Tromethamine 15mg/Ml 14:00 Ct Abdomen/Pelvis W/O CT 06/22/24 Resulted Contrast 13:52 Ketorolac PHA 06/22/24 In Process Tromethamine 15mg/Ml 15:00 Current Medications Medications (Trade) Dose Ordered Sig/Bobby Route PRN Reason Start Time Stop Time Status Last Admin Dose Admin Al Hydroxide/Mg Hydroxide (MAALox PLUS 30ML) 30 ml ONCE ONCE PO 06/22/24 12:00 06/22/24 12:01 DC 06/22/24 12:15 Famotidine (Pepcid 20mg Vial) 20 mg ONCE ONCE IV 06/22/24 12:00 06/22/24 12:01 DC 06/22/24 12:15 Ketorolac Tromethamine (toRADol) 15 mg ONCE ONCE IV 06/22/24 14:00 06/22/24 14:01 DC 06/22/24 13:47 Ketorolac Tromethamine (toRADol) 15 mg ONCE ONCE IV 06/22/24 15:00 06/22/24 15:01 06/22/24 14:43 Lidocaine HCl (Lidocaine HCl 2% Viscous) 10 ml ONCE ONCE PO 06/22/24 12:00 06/22/24 12:01 DC 06/22/24 12:15 Ondansetron HCl (zoFRAN 4MG INJ) 4 mg ONCE ONCE IVP 06/22/24 12:00 06/22/24 12:01 DC 06/22/24 12:15 Vital Signs Date Time Temp Pulse Resp B/P (MAP) Pulse Ox O2 Delivery O2 Flow Rate FiO2 06/22/24 11:37 97.9 92 20 172/109 99 Room Air 0 DX & DISP Disposition: Discharge Departure Impression: Primary Impression: Epigastric abdominal pain Condition: Stable Scripts Ondansetron (Ondansetron Odt) 4 Mg Tab.rapdis 4 MG PO BID for 7 Days, #14 TAB Prov: ELIDA MOJICA 06/22/24 Famotidine (Pepcid) 20 Mg Tablet 1 TAB PO BID for 30 Days, #60 TAB 0 Refills Prov: ELIDA MOJICA 06/22/24 Additional Instructions: Your blood work today is unremarkable. Your lipase level was normal. There was no evidence of pancreatitis. You were seen in our emergency department several days ago and had an extensive workup that included an ultrasound and a CT scan that was negative. You need to follow up outpatient with your primary care doctor for a possible referral to GI specialist. Referrals: SELF,REFERRAL (PCP) I have reviewed the case, and I agree with, Diagnosis and Plan I performed the substantive portion of the visit. I have reviewed and personally made and approve the management plan that is documented in the note by myself or the JAMES. I acknowledge for responsibility for the patient's management plan. ELIDA MOJICA Jun 22, 2024 12:00
[2024-06-22] MEDS: FAMOTIDINE 20MG VIAL IV ONE (12:15)
[2024-06-22] MEDS: MAG/ALUM/SIMETH 30 ML UDCUP PO ONE (12:15)
[2024-06-22] MEDS: ondanSETRON 4MG INJ IVP ONE (12:15)
[2024-06-22] MEDS: LIDOCAINE HCL 2% VISCOUS 15 ML UDCUP PO ONE (12:15)
[2024-06-22 12:20] LABS: BASOPHILS # (AUTO) 0.05 K/uL (0.00-0.20); BASOPHILS % (AUTO) 0.5 % (0.0-5.0); EOSINOPHILS # (AUTO) 0.05 K/uL (0.00-0.70); EOSINOPHILS % (AUTO) 0.5 % (0.0-8.0); HEMATOCRIT 42.7 % (42-54); IMMATURE GRANULOCYTE ABSOLUTE 0.03 K/uL (0-1); LYMPHOCYTES # (AUTO) 2.2 K/uL (1.0-4.8); LYMPHOCYTES % (AUTO) 21.2 % (21.0-51.0); MEAN CORPUSCULAR HEMOGLOBIN 28.3 pg (27.0-33.0); MEAN CORPUSCULAR HGB CONC 33.5 g/dL (32.0-36.0); MEAN CORPUSCULAR VOLUME 84.6 fL (79-99); MONOCYTES # (AUTO) 0.6 K/uL (0.1-1.0); MONOCYTES % (AUTO) 5.6 % (3.0-13.0); NEUTROPHILS # (AUTO) 7.5 K/uL (1.8-7.7); NEUTROPHILS % (AUTO) 71.9 % (40.0-77.0); PLATELET COUNT (AUTO) 164 K/uL (130-400); RED BLOOD CELL COUNT(AUTO) 5.05 MIL/uL (4.50-6.20); RED CELL DISTRIBUTION WIDTH 12.8 % (11.0-15.5); WHITE BLOOD COUNT (AUTO) 10.5 K/uL (4.8-10.8)
[2024-06-22 12:34] LABS: CREATININE 1.2 mg/dL (0.5-1.3); POTASSIUM 4.2 mmol/L (3.5-5.1)
[2024-06-22 12:38] LABS: ALBUMIN 3.3 g/dL (3.5-5.0); BILIRUBIN,DIRECT 0.1 mg/dL (0.0-0.3); BILIRUBIN,TOTAL 0.5 mg/dL (0.2-1.0); TOTAL PROTEIN, SERUM 6.8 g/dL (6.0-8.3)
--- NOTE | 2024-06-22 13:31 | NUR ---
ELIDA BUCKLEY INFORMED PT STILL C/O OF EPIGASTRIC DISCOMFORT W/HIS FACIAL GRIMACING/GUARDING.
[2024-06-22] MEDS: ketOROlac 15MG/ML VIAL (15MG/ML) IV ONE ×2 (13:47→14:43)
--- NOTE | 2024-06-22 14:27 | HMCIMG ---
Exam Type: CT ABDOMEN/PELVIS W/O CONTRAST Clinical Information: persistent mid epigastric pain Comparison: None CT Dose Index (CTDI): 10.20 mGy Dose Length Product (DLP): 530.00 total mGy-cm PROTOCOL: Routine noncontrast helical scanning of the abdomen and pelvis was performed at 5mm collimation. Findings: No evidence of nephro or ureterolithiasis is found. No hydronephrosis or ureteral dilatation is seen. The lung bases are clear. Coronary arterial calcifications are seen. The stomach is unremarkable. It shows no wall thickening. No gross ulceration is seen. It is not overly distended. There are no surrounding inflammatory changes. No wall lesions are identified to suggest cancer. The spleen is unremarkable. It is not enlarged. The pancreas shows normal anatomy. It is not fatty replaced. It shows no lesions. The pancreatic duct is not dilated. The gallbladder is unremarkable. It shows no cholelithiasis. The gallbladder wall is normal in thickness. There is no pericholecystic fluid. The is no acute or chronic inflammation noted. The adrenal glands are unremarkable. There is no enlargement. No lesions are noted. The liver is unremarkable. It shows no focal masses. The appendix is unremarkable. It shows no evidence of inflammation. No appendicolith is seen. The small bowel is unremarkable. There is no evidence of dilatation to suggest obstruction. No evidence of adynamic ileus is seen. There is no small bowel wall thickening to suggest enteritis. The colon is unremarkable. There is debris within the urinary bladder consistent with urinary bladder calculi. The other pelvic structures are unremarkable. The bony and vascular structures are unremarkable for the patient's age. IMPRESSION: Small layering urinary bladder calculi. This study was performed using dose reduction techniques to include automated exposure control and/or adjustment of the mA and/or kV according to patient size.
[2024-06-22] MEDS ORDERED: ONDA-243 PO (14:56)
[2024-06-22] MEDS ORDERED: FAMO-136 PO (14:56)
[2024-06-22 15:12] VITALS: BP 147/80; PULSE 84; RESP 17; TEMP 97.8; O2SAT 96
[2024-06-22] MEDS ORDERED: KETO10TA2 PO (15:17)
--- NOTE | 2024-06-23 06:24 | EKG ---
[facility] Test Date: 2024-06-22 Test Time: 12:34:56 Pat Name: RENNY NAZARIO Department: ED Room: Gender: M [employer]: student : [id number] Requested By: ELIDA MOJICA Order Number: [id number] Reading MD: Eladio Linda Measurements Intervals Pierce Rate: 80 P: 48 FL: 261 QRS: -72 QRSD: 169 T: 69 QT: 446 QTc: 516 Interpretive Statements Sinus rhythm Prolonged FL interval RBBB and LAFB Compared to ECG 06/17/2024 09:10:28 No significant changes Electronically Signed On 06-23-2024 13:35:06 CDT by Eladio Linda Please click the below link to view image of tracing.
== END 2024-06-22 15:20 | disposition home or self-care (01) ==
LOC: EDH 11:36
DX: R10.13 Epigastric pain (principal); E11.9 Type 2 diabetes mellitus without complications; Z79.01 Long term (current) use of anticoagulants; Z79.02 Long term (current) use of antithrombotics/antiplatelets; Z79.82 Long term (current) use of aspirin; Z79.84 Long term (current) use of oral hypoglycemic drugs; Z79.899 Other long term (current) drug therapy; Z86.711 Personal history of pulmonary embolism; Z86.718 Personal history of other venous thrombosis and embolism
CPT/HCPCS: 99285; 74176; 96374; 96375; 80076; 84484; 80048; 83690; 85025; 36415; 96376; 93005; J1885 ×2; J3490; J2405

== ENCOUNTER 2024-11-01 11:02 | Emergency (ER) | payer SELFPAY ==
[~2024-11-01] VITALS: Ht 175.3 cm; Wt 106.6 kg
[~2024-11-01 11:02] MED LIST changes: +FAMO-136 PO; -FLUO10CA21 PO; +FLUO10CA51 PO; +KETO10TA2 PO
[2024-11-01 11:22] LABS: IMMATURE GRANULOCYTE ABSOLUTE 0.08 K/uL (0-1); NUCLEATED RED BLOOD CELLS 0.0 % (0.0-0.19); PLATELET COUNT (AUTO) 186 K/uL (130-400); RED BLOOD CELL COUNT(AUTO) 5.30 MIL/uL (4.50-6.20); RED CELL DISTRIBUTION WIDTH 13.2 % (11.0-15.5); WHITE BLOOD COUNT (AUTO) 12.8 K/uL (4.8-10.8)
--- NOTE | 2024-11-01 11:28 | ERN ---
ED Note History of Present Illness Stated Complaint: NAUSEA AND UPSET STOMACH Chief Complaint: Nausea,Vomiting,Diarrhea Time Seen by MD: 11:08 Time Seen by Midlevel: 11:08 Dictation: The patient is a 64-year-old male with a history of a diabetes, PE who presents to the emergency department with complaints of nausea nonbloody vomiting, loose stools, mild epigastric abdominal pain onset two days ago. Patient denies any fevers. Allergies: Coded Allergies: No Known Allergies (Verified Allergy, Unknown, 11/11/18) Home Meds Active Scripts Promethazine HCl (Phenergan) 6.25 Mg/5 Ml Syrup, 5 ML PO Q6HPRN PRN for NAUSEA for 7 Days, #200 ML 0 Refills Prov:KOBE BISWAS 11/01/24 Ketorolac Tromethamine (Ketorolac Tromethamine) 10 Mg Tablet, 1 TAB PO BID for pain for 5 Days, #10 TAB 0 Refills Prov:ELIDA MOJICA 06/22/24 Ondansetron (Ondansetron Odt) 4 Mg Tab.rapdis, 4 MG PO BID for 7 Days, #14 TAB Prov:ELIDA MOJICA 06/22/24 Famotidine (Pepcid) 20 Mg Tablet, 1 TAB PO BID for 30 Days, #60 TAB 0 Refills Prov:ELIDA MOJICA 06/22/24 Linaclotide (Linzess) 145 Mcg Capsule, 1 CAP PO DAILY PRN for CONSTIPATION for 7 Days, #7 CAP 0 Refills Prov:ELIZA ABERNATHY MD 06/17/24 Pantoprazole Sodium (Protonix) 40 Mg Ectab, 1 TAB PO DAILY for 30 Days, #30 TAB 0 Refills Prov:ELIZA ABERNATHY MD 06/17/24 Promethazine HCl (Phenergan) 6.25 Mg/5 Ml Syrup, 5 ML PO BID for motion sickness for 1 Day, #10 ML 0 Refills Prov:ELIZA ABERNATHY MD 01/29/24 Ondansetron (Ondansetron Odt) 4 Mg Tab.rapdis, 4 MG PO BID PRN for NAUSEA/VOMITING for 3 Days, #6 TAB Prov:ELIZA ABERNATHY MD 01/29/24 Pantoprazole Sodium (Protonix) 40 Mg Ectab, 1 TAB PO DAILY for 30 Days, #30 TAB 0 Refills Prov:ELIZA ABERNATHY MD 01/29/24 Rivaroxaban (Xarelto) 20 Mg Tablet, 20 MG PO DAILY, #30 TAB 1 Refill Prov:MARTINA PEÑA MD 07/12/23 Lidocaine (Lidocaine Pain Relief) 4 % Adh..patch, 1 EACH TP DAILY, #30 ADH.PATCH 0 Refills Prov:MARTINA PEÑA MD 07/12/23 Hydroxyzine HCl (Hydroxyzine HCl) 25 Mg Tablet, 50 MG PO TID, #90 TAB 0 Refills Prov:MARTINA PEÑA MD 07/12/23 Furosemide (Furosemide) 20 Mg Tablet, 20 MG PO DAILY, #30 TAB Prov:MARTINA PEÑA MD 07/12/23 Fluoxetine HCl (Prozac) 10 Mg Capsule, 30 MG PO HS, #90 CAP 1 Refill Prov:MARTINA PEÑA MD 07/12/23 Aspirin (ASPIRIN 81 MG ECTAB) 81 Mg Ectab, 81 MG PO DAILY, #30 TAB.EC 0 Refills Prov:MARTINA PEÑA MD 07/12/23 Acetaminophen with Codeine (Acetaminophen-Cod #3 Tablet) 300 Mg-30 Mg Tablet, 1 EACH PO q6hr for pain, #30 TAB 0 Refills Prov:FEROZ PHOENIX MD 06/05/23 Lorazepam (Ativan) 0.5 Mg Tablet, 0.25 MG PO TIDP PRN for ANXIETY/AGITATION for 7 Days, #20 TAB Prov:PUNEET CORNELIUS 06/05/23 Zinc Sulfate (Zinc Sulfate 220 Cap) 50 Mg Zinc (220 Mg) Capsule, 220 MG PO DAILY, #30 CAP Prov:PUNEET CORNELIUS 06/05/23 Insulin Glargine,Hum.rec.anlog (Lantus) 100 Unit/Ml Inj, 10 UNITS SQ HS, #10 ML 2 Refills Prov:PUNEET CORNELIUS 06/05/23 Famotidine (Famotidine) 20 Mg Tablet, 20 MG PO DAILY, #90 TAB Prov:PUNEET CORNELIUS 06/05/23 Clopidogrel Bisulfate (Plavix) 75 Mg Tablet, 75 MG PO DAILY, #90 TAB Prov:PUNEET CORNELIUS 06/05/23 Atorvastatin Calcium (LIPITOR) 40 Mg Tablet, 40 MG PO HS, #90 TAB Prov:PUNEET CORNELIUS 06/05/23 Reported Medications [albos] No Conflict Check, 1 CAP PO DAILY PRN for INDIGESTION 05/23/23 Metformin HCl (Metformin HCl) 1,000 Mg Tablet, 1000 MG PO BID, TAB 10/06/20 Past Medical History Past Medical History: Diabetes-Type II, DVT, Other Additional Past Medical Hx: PULMONARY EMBOLISM, MRSA Surgical History: Other Surgical History Other: PILONITAL CYST REMOVAL, TOE APUTATION Social History: Negative RN Note Reviewed/Agreed w/PFSH: Yes Review of System Dictation Constitutional: Negative for fever,chills, and weight loss Eyes: Negative for injury, pain,redness, and discharge ENT: Negative for injury,pain or swelling Cardiovascular: Negative for chest pain, palpitations, and edema Respiratory: Negative for shortness of breath, cough, and wheezing, Abdomen/GI: Negative for constipation positive for abdominal pain, nausea, vomiting, diarrhea Back: Negative for injury and pain : Negative for injury, bleeding and discharge MS/Extremity: Negative for injury and deformity Skin: Negative for rash, and discoloration Neuro: Negative for headache, weakness, numbness, tingling, and seizure Psych: Negative for suicide ideation, homicidal ideation, and hallucinations Initial Vital Sign VS Vital Signs Date Time Temp Pulse Resp B/P (MAP) Pulse Ox O2 Delivery O2 Flow Rate FiO2 11/01/24 11:03 98.1 97 16 165/89 99 Room Air 11/01/24 13:00 0 21 Physical Exam Dictation Vital Signs reviewed General Appearance: Alert, oriented x 3, no acute distress, well developed, nourished. Head and Face: non-traumatic. Eyes: PERRL, pink conjunctivas, eyelid no trauma, anterior chamber with arcus senilis. Ears: Pinnas intact and no signs of trauma or erythema ear canals clear and no discharge TM no erythema Nose: No discharge, no bleeding. Oropharynx: Mouth normal, tongue pink. pharynx clear,no erythema, tonsils no exudates, no abscesses noted, mucous membrane moist Neck: Supple, non-tender, no thyromegaly, no masses, no JVD, no bruits Breast:Deferred Chest:No tenderness, no crepitus, no paradoxical movement, no retractions Lungs:Clear, well-ventilated, symmetric, no rales, no wheezing, no rhonchi, no stridor, good breath sounds bilaterally Heart: Regular rate, regular rhythm, no murmur, no gallops Vascular: no peripheral edema, Abdomen: Soft, positive bowel sounds, nondistended, no guarding, nontender, no rebound, no masses no hepatomegaly, no splenomegaly, no Gill's sign, no hernias. Rectal: Deferred Genital: Deferred Neurological: Normal speech, motor function intact, sensory function intact Musculoskeletal: Neck nontender, full range of motion, back nontender, full range of motion, Extremities: nontender, full range of motion Skin: Color pink, dry, no turgor, no rash, no lacerations, no abrasions, no contusions. Lymphatic: Deferred Results (Laboratory/Radiology) Laboratory/Radiology Laboratory Tests Test 11/01/24 11:15 11/01/24 13:16 White Blood Count 12.8 K/uL (4.8-10.8) H Red Blood Count 5.30 MIL/uL (4.50-6.20) Hemoglobin 15.4 g/dL (14.0-18.0) Hematocrit 44.6 % (42-54) Mean Corpuscular Volume 84.2 fL (79-99) Mean Corpuscular Hemoglobin 29.1 pg (27.0-33.0) Mean Corpuscular Hemoglobin Concent 34.5 g/dL (32.0-36.0) Red Cell Distribution Width 13.2 % (11.0-15.5) Platelet Count 186 K/uL (130-400) Mean Platelet Volume 10.3 fL (7.5-10.5) Immature Granulocyte % (Auto) 0.6 % (0-1) Neutrophils (%) (Auto) 82.5 % (40.0-77.0) H Lymphocytes (%) (Auto) 11.6 % (21.0-51.0) L Monocytes (%) (Auto) 5.2 % (3.0-13.0) Eosinophils (%) (Auto) 0.0 % (0.0-8.0) Basophils (%) (Auto) 0.1 % (0.0-5.0) Neutrophils # (Auto) 10.6 K/uL (1.8-7.7) H Lymphocytes # (Auto) 1.5 K/uL (1.0-4.8) Monocytes # (Auto) 0.7 K/uL (0.1-1.0) Eosinophils # (Auto) 0.00 K/uL (0.00-0.70) Basophils # (Auto) 0.01 K/uL (0.00-0.20) Absolute Immature Granulocyte (auto 0.08 K/uL (0-1) Nucleated Red Blood Cells 0.0 % (0.0-0.19) Sodium Level 134 mmol/L (136-145) L Potassium Level 4.5 mmol/L (3.5-5.1) Chloride Level 97 mmol/L (101-111) L Carbon Dioxide Level 25 mmol/L (21-32) Blood Urea Nitrogen 15 mg/dL (7-18) Creatinine 0.8 mg/dL (0.5-1.3) Glomerular Filtration Rate Calc 100 mL/min (>90) Random Glucose 193 mg/dL (70-105) H Total Calcium 8.5 mg/dL (8.5-10.1) Total Bilirubin 0.7 mg/dL (0.2-1.0) Direct Bilirubin 0.1 mg/dL (0.0-0.3) Aspartate Amino Transf (AST/SGOT) 19 U/L (10-37) Alanine Aminotransferase (ALT/SGPT) 21 U/L (12-78) Alkaline Phosphatase 138 U/L (50-136) H Troponin I High Sensitivity 25 ng/L (4-75) Total Protein 7.2 g/dL (6.0-8.3) Albumin 3.4 g/dL (3.5-5.0) L Lipase 18 U/L (16-77) Urine Color LIGHT-YELLOW (YELLOW) Urine Appearance CLEAR (CLEAR) Urine pH 6.5 (5.0-8.0) Urine Specific [place] 1.009 (1.001-1.031) Urine Protein 200 mg/dL (NEGATIVE) H Urine Glucose (UA) TRACE mg/dL (NEGATIVE) H Urine Ketones 10 mg/dL (NEGATIVE) H Urine Occult Blood MODERATE (NEGATIVE) H Urine Nitrate NEGATIVE (NEGATIVE) Urine Bilirubin NEGATIVE mg/dL (NEGATIVE) Urine Urobilinogen 0.2 mg/dL (0.2-1.0) Urine Leukocyte Esterase NEGATIVE [place]/uL Urine RBC 2-5 /HPF (0-1) H Urine WBC 0-1 /HPF (0-1) Urine Bacteria None /HPF (None Seen) Urine Opiates Screen NEGATIVE (NEGATIVE) Urine Barbiturates Screen NEGATIVE (NEGATIVE) Urine Phencyclidine Screen NEGATIVE (NEGATIVE) Urine Amphetamines Screen NEGATIVE (NEGATIVE) Urine Benzodiazepines Screen NEGATIVE (NEGATIVE) Urine Cocaine Screen NEGATIVE (NEGATIVE) Urine Marijuana (THC) Screen POSITIVE (NEGATIVE) H SERVICE 1146 REASON: abd pain 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 CLINICAL HISTORY: abd pain TECHNIQUE: Right upper quadrant sonography performed with image documentation. COMPARISON: Study dated 0 pain FINDINGS: LIVER: The liver is enlarged in size, measuring approximately 16.1 cm, with increased echogenicity. GALLBLADDER: The gallbladder appears normal. No gallbladder wall thickening seen. No gallstones are evident. COMMON BILE DUCT: No dilation. PANCREAS: The visualized pancreas appears within normal limits. The distal pancreas is obscured by bowel gas. RIGHT KIDNEY: Unremarkable. Normal renal contours. No renal mass or calculus. No hydronephrosis. MISCELLANEOUS Increased bowel gases IMPRESSION: 1. Hepatomegaly with increased echogenicity, suggesting fatty liver. /[facility] Labs Reviewed?: Yes EKG: (+) rhythm (Sinus rhythm) EKG Comment: Date:11/01/24 Time:1114 Ventricular rate:88 IN interval:256 QRS duration:148 QT/QTc:430/521 EKG interpretation: Sinus rhythm, prolonged IN Reviewed by ED Attending no STEMI ED Course ED Course Orders Procedure Category Date Status Time Cbc With Differential LAB 11/01/24 Complete 11:07 Troponin I High LAB 11/01/24 Complete Sensitivity 11:07 Urinalysis Profile LAB 11/01/24 Complete 11:07 12 Lead Ekg Tracing- EKG 11/01/24 Resulted Technical 11:07 Lactated Ringers PHA 11/01/24 Complete 1000ml (Lactated 11:30 Ondansetron 4mg Inj PHA 11/01/24 Complete (Zofran 4mg Inj) 11:30 Lipase LAB 11/01/24 Complete 11:07 Basic Metabolic Panel LAB 11/01/24 Complete 11:07 Hepatic Function Panel LAB 11/01/24 Complete 11:07 Pantoprazole 40mg Inj PHA 11/01/24 Complete (Protonix 40mg Inj 11:30 Drug Screen Urine LAB 11/01/24 Complete 11:25 Us Abdominal Ruq\Ltd US 11/01/24 Resulted 11:46 Promethazine Hcl PHA 11/01/24 Complete (Phenergan) 14:00 Current Medications Medications (Trade) Dose Ordered Sig/Bobby Route PRN Reason Start Time Stop Time Status Last Admin Dose Admin Lactated Ringer's 1,000 ml @ 0 mls/hr ONCE ONCE IV 11/01/24 11:30 11/01/24 11:31 DC 11/01/24 11:32 Ondansetron HCl (zoFRAN 4MG INJ) 4 mg ONCE ONCE IVP 11/01/24 11:30 11/01/24 11:31 DC 11/01/24 11:31 Pantoprazole Sodium (PROTonix 40MG INJ) 40 mg ONCE ONCE IVP 11/01/24 11:30 11/01/24 11:31 DC 11/01/24 11:31 Promethazine HCl (Phenergan) 12.5 mg ONCE ONCE IM 11/01/24 14:00 11/01/24 14:02 DC 11/01/24 14:06 Vital Signs Date Time Temp Pulse Resp B/P (MAP) Pulse Ox O2 Delivery O2 Flow Rate FiO2 11/01/24 14:35 98.1 80 16 153/85 99 Room Air* 0 21 11/01/24 13:00 98.1 88 16 151/83 99 Room Air* 0 21 11/01/24 11:03 98.1 97 16 165/89 99 Room Air Medical Decision Making MDM The patient is a 64-year-old male with a history of a diabetes, PE who presents to the emergency department with complaints of nausea nonbloody vomiting, loose stools, mild epigastric abdominal pain onset two days ago. Patient denies any fevers. Patient has been seen here multiple times for similar reasons. CBC Showed mild leukocytosis, no anemia, chemistry showed mild hyponatremia, mild hypochloremia, normal renal function, negative lipase, negative troponin, normal liver enzymes. Urinalysis positive for THC Ultrasound revealed hepatomegaly. Patient reports improving in nausea with medication administration. On physical exam patient is in no acute distress, stable vital signs. Nausea could be related to THC. Patient educated on cessation of drug abuse. Patient will be discharged to follow up with PCP. Differential diagnosis: Gastroenteritis, gastritis, dehydration, electrolyte imbalance, ACS Need for hospitalization: Patient does not meet criteria for hospitalization. There are no social concerns with this patient. DX & DISP Disposition: Discharge Departure Impression: Primary Impression: Viral gastroenteritis Additional Impressions: Cannabis abuse, Epigastric abdominal pain Condition: Stable Scripts Promethazine HCl (Phenergan) 6.25 Mg/5 Ml Syrup 5 ML PO Q6HPRN PRN for NAUSEA for 7 Days, #200 ML 0 Refills Prov: KOBE BISWAS 11/01/24 Additional Instructions: Your labs were unremarkable. Your ultrasound did not show any acute pathology. Please follow up with your primary doctor in 1-2 days. Avoid any use of cannabis because this can caused your nausea and vomiting. Continue oral hydration as tolerated. FOLLOW-UP WITH PRIMARY CARE PROVIDER IN 1 TO 2 DAYS. TAKE MEDICATIONS DIRECTED HERE IN THE EMERGENCY ROOM. OKAY TO CONTINUE HOME MEDICATIONS UNLESS OTHERWISE DISCUSSED DURING YOUR VISIT IN THE EMERGENCY ROOM TODAY. RETURN TO YOUR NEAREST EMERGENCY ROOM IF SYMPTOMS WORSEN OR IF THERE IS NO IMPROVEMENT. CALL 911 IF YOU NEED IMMEDIATE ASSISTANCE. TAKE TYLENOL [id number] NEEDED AND IF NO CONTRAINDICATIONS ARE PRESENT. INCREASE ORAL HYDRATION. A WOUND CULTURE OR URINE CULTURE WAS ORDERED HERE IN THE EMERGENCY ROOM DEPARTMENT PLEASE FOLLOW-UP WITH PRIMARY CARE PROVIDER AND ADVISE THEM TO GET REPEAT PORTS FROM OUR FACILITY. IF YOU HAD ANY SARANYA WRAP/SPLINTS THAT WERE APPLIED HERE, PLEASE DO NOT REMOVE THEM UNTIL YOU SEE YOUR PRIMARY CARE OR SPECIALTY. Referrals: SELF,REFERRAL (PCP) Time of Disposition: 14:47 I have reviewed the case, and I agree with, Diagnosis and Plan KOBE BISWAS Nov 01, 2024 11:28 ANA OCASIO DO Nov 01, 2024 17:25
[2024-11-01] MEDS: LACTATED RINGERS 1000ML 1,000 ML IV ONE (11:32)
--- NOTE | 2024-11-01 11:33 | EKG ---
[facility] Test Date: 2024-11-01 Test Time: 11:14:59 Pat Name: RENNY NAZARIO Department: ED Room: Gender: M Data Processing Manager: [facility] : 1960 Requested By: ANA OCASIO Order Number: [id number] Reading MD: Denys Chandler Measurements Intervals [place] Rate: 88 P: 38 ND: 256 QRS: -68 QRSD: 148 T: -2 QT: 430 QTc: 521 Interpretive Statements Sinus rhythm Prolonged ND interval RBBB and LAFB Compared to ECG 06/22/2024 12:34:56 No significant changes Electronically Signed On 11-01-2024 12:12:21 CDT by Denys Chandler Please click the below link to view image of tracing.
[2024-11-01 11:51] LABS: CREATININE 0.8 mg/dL (0.5-1.3); GLOMERULAR FILTR. RATE CALC 100.0 mL/min (>90); GLUCOSE,RANDOM 193.0 mg/dL (70-105); SODIUM SERUM 134.0 mmol/L (136-145); UREA NITROGEN, BLOOD 15.0 mg/dL (7-18)
[2024-11-01 11:55] LABS: ASPARTATE AMINOTRANSFERASE 19.0 U/L (10-37); TOTAL PROTEIN, SERUM 7.2 g/dL (6.0-8.3)
--- NOTE | 2024-11-01 13:31 | HMCIMG ---
EXAM: US Abdomen, Right Upper Quadrant. CLINICAL HISTORY: abd pain TECHNIQUE: Right upper quadrant sonography performed with image documentation. COMPARISON: Study dated pain FINDINGS: LIVER: The liver is enlarged in size, measuring approximately 16.1 cm, with increased echogenicity. GALLBLADDER: The gallbladder appears normal. No gallbladder wall thickening seen. No gallstones are evident. COMMON BILE DUCT: No dilation. PANCREAS: The visualized pancreas appears within normal limits. The distal pancreas is obscured by bowel gas. RIGHT KIDNEY: Unremarkable. Normal renal contours. No renal mass or calculus. No hydronephrosis. MISCELLANEOUS Increased bowel gases IMPRESSION: 1. Hepatomegaly with increased echogenicity, suggesting fatty liver. /[place]
[2024-11-01 14:06] LABS: APPEARANCE,URINE CLEAR (CLEAR); GLUCOSE, URINE (UA) TRACE mg/dL (NEGATIVE); LEUKOCYTE ESTERASE ,URINE NEGATIVE Leu/uL (NEGATIVE); NITRATE,URINE NEGATIVE (NEGATIVE); OCCULT BLOOD,URINE MODERATE (NEGATIVE)
[2024-11-01] MEDS: PROMETHAZINE HCL 25 MG/ML 1ML AMPULE IM ONE (14:06)
[2024-11-01 14:07] LABS: ADD UA MICROSCOPIC YES
[2024-11-01 14:13] LABS: AMPHET/METH SCREEN,URINE NEGATIVE (NEGATIVE); BARBITURATE SCREEN, URINE NEGATIVE (NEGATIVE); CANNABINOID SCREEN,URINE POSITIVE (NEGATIVE); COCAINE SCREEN,URINE NEGATIVE (NEGATIVE)
[2024-11-01 14:35] VITALS: BP 153/85; PULSE 80; RESP 16; TEMP 98.1; O2SAT 99
[2024-11-01] MEDS ORDERED: PANT20TA PO (14:47)
[2024-11-01] MEDS ORDERED: ONDA-243 PO (14:47)
[2024-11-01] MEDS ORDERED: PROM6.2527 PO (14:58)
== END 2024-11-01 15:05 | disposition home or self-care (01) ==
LOC: EDH 11:02
DX: A08.4 Viral intestinal infection, unspecified (principal); E11.9 Type 2 diabetes mellitus without complications; F12.10 Cannabis abuse, uncomplicated; Z79.01 Long term (current) use of anticoagulants; Z79.02 Long term (current) use of antithrombotics/antiplatelets; Z79.82 Long term (current) use of aspirin; Z79.84 Long term (current) use of oral hypoglycemic drugs; Z79.899 Other long term (current) drug therapy
CPT/HCPCS: 99285; 96374; 76705; 96361; 96375; 80076; 84484; 80048; 80305; 83690; 85025; 36415; 93005; 81001; 96372; J7120; J2550; J2405; J2470